=== PATIENT | male | born 1940 | race Caucasian/White ===

== ENCOUNTER 2020-11-09 10:12 | Outpatient (REF) | payer MEDICARE, SELFPAY ==
--- NOTE | ~2020-11-09 | XR_ITS ---
EXAMINATION: XR TIBIA AND FIBULA, RIGHT CLINICAL INFORMATION: Right leg injury COMPARISON: None TECHNIQUE: AP and lateral views of the right tibia and fibula were obtained. FINDINGS: There are old healed fractures of the midshaft of the tibia and fibula. No acute fracture is seen. There are degenerative changes at the patellofemoral joint and ankle joint. There are calcaneal spurs. XR/XR tibia fibula RT 2V IMPRESSION: Old healed fractures of the tibia and fibula. No acute fracture seen.
== END 2020-11-09 10:13 | disposition home or self-care (01) ==
LOC: HO.XRAY 10:12
PROVIDERS: PCP Internal Medicine; Visit Provider Internal Medicine
DX: S89.91XA Unspecified injury of right lower leg, initial encounter (principal)
CPT/HCPCS: 73590

== ENCOUNTER 2021-03-02 12:15 | Outpatient (REF) | payer MEDICARE, SELFPAY ==
[2021-03-02 14:06] LABS: MANUAL DIFF FLAG NO
[2021-03-02 14:17] LABS: Basophils Absolute Auto 0.1 X10*3/uL (0.0-0.2); Basophils Percent Auto 0.7 % (0-2); Eosinophils Absolute Auto 0.2 X10*3/uL (0.0-0.4); Eosinophils Percent Auto 3.1 % (0-4); Hematocrit 40.4 % (42.0-52.0); Hemoglobin 12.9 g/dl (14.0-18.0); Imm Gran Abs Auto 0.03 X10*3/uL (0.00-0.03); Imm Gran Pct Auto 0.4 % (0.0-0.4); Lymphocytes Absolute Auto 1.3 X10*3/uL (1.2-4.9); Lymphocytes Percent Auto 18.1 % (20-40); Mean Corpuscular HGB Conc 31.9 g/dl (31.0-36.0); Mean Corpuscular Hemoglobin 29.9 pg (27.0-33.0); Mean Corpuscular Volume 93.5 fL (80.0-98.0); Mean Platelet Volume 11.5 fL (9.4-12.4); Monocytes Absolute Auto 0.8 X10*3/uL (0.1-1.2); Monocytes Percent Auto 11.5 % (2-11); Neutrophils Absolute Auto 4.7 x10*3/uL (2.0-8.3); Neutrophils Percent Auto 66.2 % (45-73); Platelet Count 251 X10*3/uL (160-400); Red Blood Count 4.32 X10*6/uL (4.60-5.80); Red Cell Distribution Width 12.6 % (11.0-16.0)
[2021-03-02 14:35] LABS: Estimated Average Glucose 146 mg/dL; Hemoglobin A1c % 6.7 %
[2021-03-02 14:38] LABS: Creatinine Urine 140.77 mg/dL; Microalbum/Creatinine Ratio Ur 211.6 ug/mg cr
[2021-03-02 14:46] LABS: Anion Gap 15 (12-20); Blood Urea Nitrogen 25 mg/dL (9-16); Calcium 9.5 mg/dL (8.4-10.2); Carbon Dioxide 24 mmol/L (22-29); Chloride 105 mmol/L (96-108); Estimated Glomerular Filt Rate > 60; Glucose Random 110 mg/dL (60-115); Potassium 4.6 mmol/L (3.3-5.1); Sodium 139 mmol/L (135-145)
== END 2021-03-02 12:16 | disposition home or self-care (01) ==
LOC: HO.10HDL 12:15
PROVIDERS: Visit Provider Internal Medicine
DX: J44.9 Chronic obstructive pulmonary disease, unspecified (principal); I12.9 Hypertensive chronic kidney disease with stage 1 through stage 4 chronic kidney disease, or unspecified chronic kidney disease; N18.9 Chronic kidney disease, unspecified; E11.22 Type 2 diabetes mellitus with diabetic chronic kidney disease
CPT/HCPCS: 36415; 80048; 82043; 83036; 85025

== ENCOUNTER 2021-09-28 08:50 | Outpatient (REF) | payer MEDICARE, SELFPAY ==
[2021-09-28 09:07] LABS: MANUAL DIFF FLAG NO
[2021-09-28 09:23] LABS: Basophils Absolute Auto 0.1 X10*3/uL (0.0-0.2); Basophils Percent Auto 0.7 % (0-2); Eosinophils Absolute Auto 0.5 X10*3/uL (0.0-0.4); Eosinophils Percent Auto 6.4 % (0-4); Hematocrit 41.3 % (42.0-52.0); Hemoglobin 13.5 g/dl (14.0-18.0); Imm Gran Abs Auto 0.02 X10*3/uL (0.00-0.03); Imm Gran Pct Auto 0.3 % (0.0-0.4); Lymphocytes Absolute Auto 1.3 X10*3/uL (1.2-4.9); Lymphocytes Percent Auto 17.2 % (20-40); Mean Corpuscular HGB Conc 32.7 g/dl (31.0-36.0); Mean Corpuscular Volume 94.7 fL (80.0-98.0); Mean Platelet Volume 10.8 fL (9.4-12.4); Monocytes Absolute Auto 0.8 X10*3/uL (0.1-1.2); Monocytes Percent Auto 10.6 % (2-11); Neutrophils Absolute Auto 4.9 x10*3/uL (2.0-8.3); Neutrophils Percent Auto 64.8 % (45-73); Platelet Count 248 X10*3/uL (160-400); Red Blood Count 4.36 X10*6/uL (4.60-5.80); Red Cell Distribution Width 12.5 % (11.0-16.0); White Blood Count 7.5 X10*3/uL (4.8-10.8)
[2021-09-28 09:51] LABS: Alanine Aminotransferase 13 U/L (0-40); Albumin Level 4.1 g/dL (3.5-5.0); Alkaline Phosphatase 60 U/L (39-117); Anion Gap 11 (12-20); Aspartate Amino Transferase 13 U/L (5-37); Bilirubin Total 0.6 mg/dL (0.0-1.0); Blood Urea Nitrogen 19 mg/dL (9-16); Calcium 9.5 mg/dL (8.4-10.2); Carbon Dioxide 28 mmol/L (22-29); Chloride 107 mmol/L (96-108); Cholesterol 142 mg/dL; Estimated Glomerular Filt Rate > 60; Glucose Fasting 160 mg/dL (60-99); HDL Cholesterol 59 mg/dL; LDL Cholesterol Calculated 75 mg/dl; Potassium 4.9 mmol/L (3.3-5.1); Sodium 141 mmol/L (135-145); Total Protein 6.7 g/dL (6.5-8.0); Triglycerides 44 mg/dL
[2021-09-28 09:56] LABS: Estimated Average Glucose 146 mg/dL; Hemoglobin A1C 176.9785 umol/L; Hemoglobin A1c % 6.7 %
[2021-09-28 10:12] LABS: Prostate Specific Antigen 0.92 ng/mL (<0.05-4.0)
[2021-09-28 10:39] LABS: Creatinine Urine 108.45 mg/dL; Microalbum/Creatinine Ratio Ur 340.2 ug/mg cr
== END 2021-09-28 08:51 | disposition home or self-care (01) ==
LOC: HO.LAB 08:50
PROVIDERS: PCP Internal Medicine; Visit Provider Internal Medicine
DX: Z12.5 Encounter for screening for malignant neoplasm of prostate (principal); I10 Essential (primary) hypertension; E78.00 Pure hypercholesterolemia, unspecified; E11.9 Type 2 diabetes mellitus without complications
CPT/HCPCS: 36415; 80053; 80061; 82043; 83036; 84153; 85025

== ENCOUNTER 2022-01-24 09:47 | Outpatient (REF) | payer MEDICARE, SELFPAY ==
[2022-01-24 10:39] LABS: MANUAL DIFF FLAG NO
[2022-01-24 10:43] LABS: Basophils Absolute Auto 0.1 X10*3/uL (0.0-0.2); Basophils Percent Auto 0.7 % (0-2); Eosinophils Absolute Auto 0.3 X10*3/uL (0.0-0.4); Eosinophils Percent Auto 3.7 % (0-4); Hematocrit 41.3 % (42.0-52.0); Imm Gran Abs Auto 0.02 X10*3/uL (0.00-0.03); Imm Gran Pct Auto 0.3 % (0.0-0.4); Lymphocytes Percent Auto 14.8 % (20-40); Mean Corpuscular HGB Conc 31.5 g/dl (31.0-36.0); Mean Corpuscular Hemoglobin 29.7 pg (27.0-33.0); Mean Corpuscular Volume 94.5 fL (80.0-98.0); Monocytes Absolute Auto 0.8 X10*3/uL (0.1-1.2); Monocytes Percent Auto 12.2 % (2-11); Neutrophils Absolute Auto 4.7 x10*3/uL (2.0-8.3); Neutrophils Percent Auto 68.3 % (45-73); Platelet Count 236 X10*3/uL (160-400); Red Blood Count 4.37 X10*6/uL (4.60-5.80); Red Cell Distribution Width 12.6 % (11.0-16.0); White Blood Count 6.8 X10*3/uL (4.8-10.8)
[2022-01-24 10:57] LABS: Estimated Average Glucose 146 mg/dL; Hemoglobin A1c % 6.7 %
[2022-01-24 11:14] LABS: Anion Gap 16 (12-20); Blood Urea Nitrogen 22 mg/dL (9-16); Calcium 9.5 mg/dL (8.4-10.2); Carbon Dioxide 26 mmol/L (22-29); Chloride 105 mmol/L (96-108); Estimated Glomerular Filt Rate 52; Glucose Random 235 mg/dL (60-115); Potassium 4.5 mmol/L (3.3-5.1); Sodium 142 mmol/L (135-145)
== END 2022-01-24 09:48 | disposition home or self-care (01) ==
LOC: HO.10HDL 09:47
PROVIDERS: Visit Provider Internal Medicine
DX: E11.9 Type 2 diabetes mellitus without complications (principal); I10 Essential (primary) hypertension; D64.9 Anemia, unspecified
CPT/HCPCS: 36415; 80048; 83036; 85025

== ENCOUNTER 2022-04-14 08:56 | Outpatient (REF) | payer MEDICARE, SELFPAY ==
--- NOTE | ~2022-04-14 | XR_ITS ---
EXAMINATION: XR TIBIA AND FIBULA, RIGHT CLINICAL INFORMATION: R52 - Pain, unspecified COMPARISON: Right lower leg radiograph 11/09/2020. TECHNIQUE: AP and lateral views of the right tibia and fibula were obtained. FINDINGS: There is no acute fracture or dislocation or destructive process. Again, there are old healed fractures mid tibia shaft and mid fibula shaft with mild anterior bowing at both prior fracture sites. There is some benign oval heterotopic ossification in the intraosseous region just above the fractures again noted. Hoffa's fat pad appears normal. There is spurring at the quadriceps insertion patella. There are atherosclerotic calcifications vasculature. No periostitis or gas tracking in soft tissues. XR/XR tibia fibula RT 2V IMPRESSION: 1. No acute fracture or dislocation. 2. Old healed fractures mid tibia and fibula. 3. Spurring at quadriceps insertion patella.
== END 2022-04-14 08:57 | disposition home or self-care (01) ==
LOC: HO.HOSX 08:56
PROVIDERS: Visit Provider Orthopaedic Surgery
DX: M79.604 Pain in right leg (principal); M54.10 Radiculopathy, site unspecified; Z96.641 Presence of right artificial hip joint
CPT/HCPCS: 72170; 73590; 99202

== ENCOUNTER 2022-05-02 10:05 | Outpatient (REF) | payer MEDICARE, SELFPAY ==
--- NOTE | ~2022-05-02 | MR_ITS ---
EXAMINATION: MR LUMBAR SPINE WITHOUT CONTRAST CLINICAL INFORMATION: Right leg radiculopathy. COMPARISON: CT scan of the abdomen and pelvis 11/28/2014. Remote plain films of the lumbar spine 08/27/2007. TECHNIQUE: MRI of the lumbar spine was obtained using routine sequences without contrast. FINDINGS: VERTEBRAL BODIES AND PARASPINAL STRUCTURES: There is a mild levoscoliosis. There is a mild retrolisthesis of L5 on S1. There is multilevel narrowing of intervertebral disc height with loss of signal which is most severe at L2-L3 and L3-L4. There is chronic loss of vertebral body height of L1 anteriorly, demonstrated on prior imaging. There are multilevel degenerative endplate contour changes with mild edematous signal toward the left at L4-L5. There are Schmorl's nodes at multiple levels. Vertebral body heights are maintained, and no fractures are demonstrated. Overall, marrow signal is homogenous. There are bilateral renal cysts. The infrarenal abdominal aorta is slightly ectatic. The visualized pelvic structures are unremarkable. There is susceptibility artifact from the right total hip arthroplasty. CONUS MEDULLARIS AND CAUDA EQUINA: Normal, terminating at the level of L1. The lower thoracic spinal cord appears normal. The cauda equina nerve roots and filum terminale appear normal.. SPINAL LEVELS: T12-L1: There is mild bilateral facet arthropathy. There is a posterior disc protrusion but there is no central stenosis and the neural foramina are patent. L1-L2: There is moderate bilateral facet arthropathy with ligamenta flava hypertrophy and facet joint effusions. There is a posterior disc protrusion extending into the inferior neural foramina bilaterally without exiting nerve root impingement. There is mild narrowing of the bilateral subarticular recesses and there is mild central stenosis. L2-L3: There is moderate bilateral facet arthropathy with ligamenta flava hypertrophy. There is a posterior disc protrusion extending into the neural foramina bilaterally, and extending far laterally on the right with impingement on the extraforaminal right L2 nerve root. There is narrowing of the bilateral subarticular recesses, and there is moderate central stenosis. L3-L4: There is moderate bilateral facet arthropathy with ligamenta flava hypertrophy. There is a broad-based posterior disc protrusion with a small extruded component extending into the right greater than left subarticular recesses with compression of the thecal sac and impingement on the traversing L4 nerve roots bilaterally. There is moderate to severe central stenosis. There is a right foraminal disc protrusion impinging on the exiting right L3 nerve root. L4-L5: There is severe bilateral facet arthropathy with ligamenta flava hypertrophy and small facet joint effusions. There is a posterior disc protrusion extending into the neural foramina bilaterally and far laterally on the left with impingement on the extraforaminal left and exiting right L4 nerve roots. There is narrowing of the subarticular recesses, more severe on the left and there is impingement on the traversing L5 nerve roots. There is moderate central stenosis. L5-S1: There is moderate bilateral facet arthropathy with ligamenta flava hypertrophy. There is a posterior disc protrusion with an extruded component extending into the left subarticular recess with mass effect on the traversing left S1 nerve root. The protrusion extends into the neural foramina bilaterally, more extensive on the left with impingement on the exiting left L5 nerve root. There is moderate central stenosis. MR/MR lumbar spine wo con IMPRESSION: 1. At L2-L3 there is facet arthropathy and there is a posterior disc protrusion extending far laterally on the right with impingement on the extraforaminal right L2 nerve root. There is moderate central stenosis. 2. At L3-L4 there is facet arthropathy and there is a posterior disc protrusion with a small extruded component extending into the subarticular recesses. There is impingement on the traversing L4 nerve roots bilaterally and there is moderate to severe central stenosis. There is a right foraminal disc protrusion impinging on the exiting right L3 nerve root. 3. At L4-L5 there is severe facet arthropathy. There is a bilateral foraminal disc protrusion extending far laterally on the left with impingement on the extraforaminal left and exiting right L4 nerve roots. There is narrowing of the subarticular recesses with impingement on the traversing L5 nerve roots. There is moderate central stenosis. 4. At L5-S1 there is facet arthropathy and there is a posterior disc protrusion with an extruded component extending into the left subarticular recess with mass effect on the traversing left S1 nerve root. There is also impingement on the foraminal left L5 nerve root. There is moderate central stenosis.
== END 2022-05-02 10:06 | disposition home or self-care (01) ==
LOC: HO.MRI 10:05
PROVIDERS: PCP Internal Medicine; Visit Provider Orthopaedic Surgery
DX: M54.10 Radiculopathy, site unspecified (principal); M79.604 Pain in right leg
CPT/HCPCS: 72148

== ENCOUNTER 2022-05-23 09:23 | Outpatient (REF) | payer MEDICARE, SELFPAY ==
[2022-05-23 10:28] LABS: MANUAL DIFF FLAG NO
[2022-05-23 10:44] LABS: Basophils Absolute Auto 0.1 X10*3/uL (0.0-0.2); Basophils Percent Auto 0.9 % (0-2); Eosinophils Absolute Auto 0.3 X10*3/uL (0.0-0.4); Eosinophils Percent Auto 5.1 % (0-4); Hematocrit 41.1 % (42.0-52.0); Hemoglobin 13.1 g/dl (14.0-18.0); Imm Gran Abs Auto 0.02 X10*3/uL (0.00-0.03); Imm Gran Pct Auto 0.3 % (0.0-0.4); Lymphocytes Absolute Auto 1.2 X10*3/uL (1.2-4.9); Lymphocytes Percent Auto 18.2 % (20-40); Mean Corpuscular HGB Conc 31.9 g/dl (31.0-36.0); Mean Corpuscular Volume 94.1 fL (80.0-98.0); Mean Platelet Volume 11.4 fL (9.4-12.4); Monocytes Absolute Auto 0.7 X10*3/uL (0.1-1.2); Monocytes Percent Auto 10.3 % (2-11); Neutrophils Absolute Auto 4.3 x10*3/uL (2.0-8.3); Neutrophils Percent Auto 65.2 % (45-73); Platelet Count 252 X10*3/uL (160-400); Red Blood Count 4.37 X10*6/uL (4.60-5.80); Red Cell Distribution Width 12.7 % (11.0-16.0); White Blood Count 6.6 X10*3/uL (4.8-10.8)
[2022-05-23 10:54] LABS: Estimated Average Glucose 157 mg/dL; Hemoglobin A1c % 7.1 %
[2022-05-23 11:10] LABS: Creatinine Urine 148.23 mg/dL; Microalbum/Creatinine Ratio Ur 306.9 ug/mg cr
[2022-05-23 11:14] LABS: Alanine Aminotransferase 12 U/L (0-40); Alkaline Phosphatase 65 U/L (39-117); Anion Gap 14 (12-20); Aspartate Amino Transferase 13 U/L (5-37); Bilirubin Total 0.5 mg/dL (0.0-1.0); Blood Urea Nitrogen 25 mg/dL (9-16); Calcium 9.4 mg/dL (8.4-10.2); Carbon Dioxide 26 mmol/L (22-29); Chloride 107 mmol/L (96-108); Estimated Glomerular Filt Rate 55; Glucose Random 292 mg/dL (60-115); Potassium 4.5 mmol/L (3.3-5.1); Sodium 142 mmol/L (135-145); Total Protein 6.4 g/dL (6.5-8.0)
== END 2022-05-23 09:24 | disposition home or self-care (01) ==
LOC: HO.10HDL 09:23
PROVIDERS: Visit Provider Internal Medicine
DX: I12.9 Hypertensive chronic kidney disease with stage 1 through stage 4 chronic kidney disease, or unspecified chronic kidney disease (principal); E11.22 Type 2 diabetes mellitus with diabetic chronic kidney disease; N18.9 Chronic kidney disease, unspecified
CPT/HCPCS: 36415; 80053; 82043; 83036; 85025

== ENCOUNTER 2022-10-20 14:47 | Outpatient (REF) | payer MEDICARE, SELFPAY ==
[2022-10-20 15:05] LABS: MANUAL DIFF FLAG NO
[2022-10-20 15:19] LABS: Basophils Absolute Auto 0.1 X10*3/uL (0.0-0.2); Basophils Percent Auto 0.8 % (0-2); Eosinophils Absolute Auto 0.2 X10*3/uL (0.0-0.4); Eosinophils Percent Auto 3.2 % (0-4); Hematocrit 41.9 % (42.0-52.0); Hemoglobin 13.4 g/dl (14.0-18.0); Imm Gran Abs Auto 0.02 X10*3/uL (0.00-0.03); Imm Gran Pct Auto 0.3 % (0.0-0.4); Lymphocytes Absolute Auto 1.5 X10*3/uL (1.2-4.9); Lymphocytes Percent Auto 20.6 % (20-40); Mean Corpuscular Volume 93.7 fL (80.0-98.0); Mean Platelet Volume 10.7 fL (9.4-12.4); Monocytes Absolute Auto 0.9 X10*3/uL (0.1-1.2); Monocytes Percent Auto 11.7 % (2-11); Neutrophils Absolute Auto 4.6 x10*3/uL (2.0-8.3); Neutrophils Percent Auto 63.4 % (45-73); Platelet Count 206 X10*3/uL (160-400); Red Blood Count 4.47 X10*6/uL (4.60-5.80); Red Cell Distribution Width 12.7 % (11.0-16.0); White Blood Count 7.3 X10*3/uL (4.8-10.8)
[2022-10-20 15:35] LABS: Estimated Average Glucose 146 mg/dL; Hemoglobin A1c % 6.7 %
[2022-10-20 15:47] LABS: Anion Gap 12 (12-20); Blood Urea Nitrogen 21 mg/dL (9-16); Calcium 10.1 mg/dL (8.4-10.2); Carbon Dioxide 26 mmol/L (22-29); Chloride 107 mmol/L (96-108); Estimated Glomerular Filt Rate > 60; Glucose Random 116 mg/dL (60-115); Potassium 4.5 mmol/L (3.3-5.1); Sodium 140 mmol/L (135-145)
== END 2022-10-20 14:48 | disposition home or self-care (01) ==
LOC: HO.LAB 14:47
PROVIDERS: PCP Internal Medicine; Visit Provider Internal Medicine
DX: J44.9 Chronic obstructive pulmonary disease, unspecified (principal); I12.9 Hypertensive chronic kidney disease with stage 1 through stage 4 chronic kidney disease, or unspecified chronic kidney disease; E11.22 Type 2 diabetes mellitus with diabetic chronic kidney disease; N18.9 Chronic kidney disease, unspecified
CPT/HCPCS: 36415; 80048; 83036; 85025

== ENCOUNTER 2023-01-24 10:00 | Outpatient (REF) | payer MEDICARE, SELFPAY ==
[2023-01-24 11:13] LABS: MANUAL DIFF FLAG NO
[2023-01-24 11:18] LABS: Basophils Percent Auto 0.6 % (0-2); Eosinophils Absolute Auto 0.3 X10*3/uL (0.0-0.4); Eosinophils Percent Auto 4.4 % (0-4); Hematocrit 38.5 % (42.0-52.0); Hemoglobin 12.5 g/dl (14.0-18.0); Imm Gran Abs Auto 0.03 X10*3/uL (0.00-0.03); Imm Gran Pct Auto 0.5 % (0.0-0.4); Lymphocytes Absolute Auto 1.3 X10*3/uL (1.2-4.9); Lymphocytes Percent Auto 20.9 % (20-40); Mean Corpuscular HGB Conc 32.5 g/dl (31.0-36.0); Mean Corpuscular Volume 95.5 fL (80.0-98.0); Mean Platelet Volume 11.3 fL (9.4-12.4); Monocytes Absolute Auto 0.9 X10*3/uL (0.1-1.2); Monocytes Percent Auto 13.6 % (2-11); Neutrophils Absolute Auto 3.9 x10*3/uL (2.0-8.3); Platelet Count 227 X10*3/uL (160-400); Red Blood Count 4.03 X10*6/uL (4.60-5.80); Red Cell Distribution Width 12.5 % (11.0-16.0); White Blood Count 6.4 X10*3/uL (4.8-10.8)
[2023-01-24 11:29] LABS: Estimated Average Glucose 140 mg/dL; Hemoglobin A1c % 6.5 % (<6.0)
[2023-01-24 11:38] LABS: Creatinine Urine 129.93 mg/dL; Microalbum/Creatinine Ratio Ur 37.7 ug/mg cr (<30)
[2023-01-24 11:44] LABS: Alanine Aminotransferase 8 U/L (0-40); Albumin Level 4.1 g/dL (3.5-5.0); Alkaline Phosphatase 49 U/L (39-117); Anion Gap 12 (12-20); Aspartate Amino Transferase 13 U/L (5-37); Bilirubin Total 0.8 mg/dL (0.0-1.0); Blood Urea Nitrogen 30 mg/dL (9-16); Calcium 9.4 mg/dL (8.4-10.2); Carbon Dioxide 26 mmol/L (22-29); Chloride 106 mmol/L (96-108); Cholesterol 134 mg/dL (<200); Estimated Glomerular Filt Rate 51; Glucose Fasting 164 mg/dL (60-99); HDL Cholesterol 58 mg/dL (>40); Iron 131 mcg/dL (45-160); LDL Cholesterol Calculated 66 mg/dL (<100); Percent Iron Saturation 45 % (15-50); Sodium 139 mmol/L (135-145); Total Iron Binding Capacity 288 mcg/dL (228-428); Total Protein 6.8 g/dL (6.5-8.0); Triglycerides 50 mg/dL (<150); Unsaturated Iron Binding 157 ug/dL
[2023-01-24 12:06] LABS: Prostate Specific Antigen Scr 0.93 ng/mL (<0.05-4.0)
== END 2023-01-24 10:01 | disposition home or self-care (01) ==
LOC: HO.10HDL 10:00
PROVIDERS: Visit Provider Internal Medicine
DX: E11.9 Type 2 diabetes mellitus without complications (principal); I10 Essential (primary) hypertension; N40.0 Benign prostatic hyperplasia without lower urinary tract symptoms; E78.00 Pure hypercholesterolemia, unspecified; Z12.5 Encounter for screening for malignant neoplasm of prostate
CPT/HCPCS: 36415; 80053; 80061; 82043; 82570; 83036; 83540; 84153; 85025

== ENCOUNTER 2023-07-31 06:02 | Outpatient (REF) | payer MEDICARE, SELFPAY ==
[2023-07-31 06:21] LABS: MANUAL DIFF FLAG NO
[2023-07-31 07:28] LABS: Basophils Percent Auto 0.5 % (0-2); Eosinophils Absolute Auto 0.4 X10*3/uL (0.0-0.4); Eosinophils Percent Auto 5.5 % (0-4); Hematocrit 41.1 % (42.0-52.0); Hemoglobin 13.2 g/dl (14.0-18.0); Imm Gran Abs Auto 0.02 X10*3/uL (0.00-0.03); Imm Gran Pct Auto 0.3 % (0.0-0.4); Lymphocytes Absolute Auto 1.8 X10*3/uL (1.2-4.9); Lymphocytes Percent Auto 23.7 % (20-40); Mean Corpuscular HGB Conc 32.1 g/dl (31.0-36.0); Mean Corpuscular Hemoglobin 30.8 pg (27.0-33.0); Mean Corpuscular Volume 95.8 fL (80.0-98.0); Monocytes Absolute Auto 1.1 X10*3/uL (0.1-1.2); Monocytes Percent Auto 13.8 % (2-11); Neutrophils Absolute Auto 4.3 x10*3/uL (2.0-8.3); Neutrophils Percent Auto 56.2 % (45-73); Platelet Count 228 X10*3/uL (160-400); Red Blood Count 4.29 X10*6/uL (4.60-5.80); Red Cell Distribution Width 12.7 % (11.0-16.0); White Blood Count 7.6 X10*3/uL (4.8-10.8)
[2023-07-31 07:43] LABS: Estimated Average Glucose 146 mg/dL; Hemoglobin A1c % 6.7 % (<6.0)
[2023-07-31 07:49] LABS: Creatinine Urine 102.57 mg/dL; Microalbum/Creatinine Ratio Ur 179.3 ug/mg cr (<30)
[2023-07-31 08:02] LABS: Alanine Aminotransferase 14 U/L (0-40); Alkaline Phosphatase 55 U/L (39-117); Anion Gap 13 (12-20); Aspartate Amino Transferase 15 U/L (5-37); Bilirubin Total 0.5 mg/dL (0.0-1.0); Blood Urea Nitrogen 26 mg/dL (9-16); Calcium 9.5 mg/dL (8.4-10.2); Carbon Dioxide 26 mmol/L (22-29); Chloride 107 mmol/L (96-108); Estimated Glomerular Filt Rate 45; Glucose Random 146 mg/dL (60-115); Potassium 4.9 mmol/L (3.3-5.1); Sodium 141 mmol/L (135-145); Total Protein 7.1 g/dL (6.5-8.0)
== END 2023-07-31 06:03 | disposition home or self-care (01) ==
LOC: HO.LAB 06:02
PROVIDERS: PCP Internal Medicine; Visit Provider Internal Medicine
DX: E11.22 Type 2 diabetes mellitus with diabetic chronic kidney disease (principal); I12.9 Hypertensive chronic kidney disease with stage 1 through stage 4 chronic kidney disease, or unspecified chronic kidney disease; N18.9 Chronic kidney disease, unspecified
CPT/HCPCS: 36415; 80053; 82043; 82570; 83036; 85025

== ENCOUNTER → 2023-09-04 07:45 | Outpatient (REF) | payer MEDICARE, SELFPAY ==
--- NOTE | 2023-09-04 07:48 | CA_ITS ---
Transthoracic Echocardiogram Patient (Last, First, Middle): Parent, Doris Chapman Gender: Male Date of : 1940 Age: 82 Procedure Date: 09/04/2023 Procedure Type: Transthoracic Echocardiogram Location: OP Height: 182.88 cm Weight: 83.92 kg BSA: 2.06 m2 Heart Rate: 66 bpm BP: 162 / 62 mmHg Traffic Rate Clerk: SB Referring MD: Campbell Montalvo MD Software Licensing Specialist: Odilon Garza MD Symptoms: I49.3 PVC COPD Study Quality: Adequate ECG Rhythm: Frequent ventricular premature beats Conclusions: - 1. Low normal LV ejection fraction 50-55% 2. Mildly dilated left atrium 3. Normal cardiac valvular Dopplers 4. No gross pericardial effusion Findings Left Ventricle Normal left ventricular cavity size. There is normal left ventricular wall thickness. The left ventricular systolic function is low normal. The visually estimated ejection fraction is between 50-55%. Spectral Doppler is indicative of an impaired relaxation filling pattern. E/E prime ratio is between 8 and 15 consistent with indeterminate filling pressures. There is mild septal asymmetric hypertrophy. Right Ventricle Normal right ventricular cavity size and systolic function. Atria The left atrium is mildly dilated. Interatrial shunt cannot be excluded. The right atrium is likely dilated. Aortic Valve There is mild calcification of the aortic valve. There is no aortic valve stenosis. There is no aortic valve regurgitation. Mitral Valve There is mild anterior and posterior mitral leaflet thickening. There is trace mitral valve regurgitation. There is no mitral valve stenosis. Pulmonic Valve The pulmonic valve was not well visualized. Tricuspid Valve Likely normal tricuspid valve structure and function. Tricuspid regurgitation envelope is inadequate for calculation of right ventricular systolic pressure. Normal right atrial pressure. Great Vessels The pulmonary artery was not well visualized. There is mild dilatation of the ascending aorta measuring 3.80 cm. Venous The inferior vena cava is normal in size and collapses greater than 50% with inspiration. Pericardium/Pleural There is no evidence of pericardial effusion. Prior Study Comparison No prior study available for comparison. Measurements 2D Linear Measurements IVSd: 1.38 0.6-0.9/0.6-1.0 cm LVIDd: 5.47 3.9-5.3/4.2-5.9 cm LVIDd Index: 2.66 2.4-3.2/2.2-3.1 cm/m2 LVIDs: 3.12 2.0-3.6 cm LVPWd: 1.01 0.7-1.1 cm LA Diam: 4.60 2.7-3.8/3.0-4.0 cm LAIDs Index: 2.23 1.5-2.3 cm/m2 LV Mass: 334.80 67-162/88-224 g LV Mass Index: 162.52 43-95/49-115 g/m2 LVOT Diam: 2.30 3.0+(-)1.3 cm 2D Systolic Function EF 4C: 50.40 >55% EF 2C: 46.10 >55% Mitral Valve MV Pk E: 0.82 MV PK A: 0.69 MV Decel Time: 348.00 E/A: 1.20 E'Lateral: 8.67 E'Medial: 3.68 E/E' Med: 22.40 E/E' Lat: 9.50 PHT: 102.00 MVA PHT: 2.16 Decel Norman: 2.36 Aortic Valve AoV Pk Benigno: 1.53 AoV Mn Benigno: 1.14 AoV VTI: 0.41 AoV Pk Grad: 9.00 Aov Mn Grad: 6.00 DARRYN Cont.VTI: 2.05 LVOT LVOT Pk Benigno: 0.80 LVOT Mn Benigno: 0.52 LVOT VTI: 0.20 LVOT Pk Grad: 3.00 LVOT Mn Grad: 1.00 LVOT Diam: 2.30 LVOT Area: 4.15 Diastolic Function MV Pk E: 0.82 MV Pk A: 0.69 E/A: 1.20 E'Medial: 3.68 E/E' Med: 22.40 E' Laterial: 8.67 E/E' Lat: 9.50 Right Ventricle TAPSE (mm): 31.50 TVS' Benigno: 19.00 Tricuspid Valve RA Press: 8.00 Great Vessels Aorta Sinus of Valsalva: 4.10 2.0-3.5 cm Ao Asc: 3.80 2.1-3.4 cm Pulmonary Valve PV Pk Benigno: 0.88 Peak PV Grad: 3.00 Updated in Other Vendor System with Status of Final Odilon Garza MD electronically signed on 09/04/2023 1:43:24 PM with status of Final
== END ==
LOC: HO.CARD 07:45
PROVIDERS: PCP Internal Medicine; Visit Provider Internal Medicine
DX: I49.3 Ventricular premature depolarization (principal)
CPT/HCPCS: 93306

== ENCOUNTER → 2023-09-04 07:48 | Outpatient (BNV) | payer MEDICARE, SELFPAY | PROVIDERS: PCP Internal Medicine; Visit Provider Internal Medicine Cardiovascular Disease | DX: I35.8 Other nonrheumatic aortic valve disorders (principal); I42.2 Other hypertrophic cardiomyopathy | CPT/HCPCS: 93306 ==

== ENCOUNTER 2023-12-07 11:05 | Outpatient (REF) | payer MEDICARE, SELFPAY ==
[2023-12-07 11:56] LABS: MANUAL DIFF FLAG NO
[2023-12-07 12:00] LABS: Basophils Absolute Auto 0.1 X10*3/uL (0.0-0.2); Basophils Percent Auto 0.8 % (0-2); Eosinophils Absolute Auto 0.2 X10*3/uL (0.0-0.4); Eosinophils Percent Auto 2.3 % (0-4); Hematocrit 37.1 % (42.0-52.0); Hemoglobin 12.3 g/dl (14.0-18.0); Imm Gran Abs Auto 0.01 X10*3/uL (0.00-0.03); Imm Gran Pct Auto 0.2 % (0.0-0.4); Lymphocytes Absolute Auto 1.2 X10*3/uL (1.2-4.9); Lymphocytes Percent Auto 18.4 % (20-40); Mean Corpuscular HGB Conc 33.2 g/dl (31.0-36.0); Mean Corpuscular Hemoglobin 31.5 pg (27.0-33.0); Mean Corpuscular Volume 95.1 fL (80.0-98.0); Mean Platelet Volume 11.1 fL (9.4-12.4); Monocytes Absolute Auto 0.8 X10*3/uL (0.1-1.2); Neutrophils Absolute Auto 4.3 x10*3/uL (2.0-8.3); Neutrophils Percent Auto 66.3 % (45-73); Platelet Count 214 X10*3/uL (160-400); Red Cell Distribution Width 12.8 % (11.0-16.0); White Blood Count 6.4 X10*3/uL (4.8-10.8)
[2023-12-07 12:07] LABS: Estimated Average Glucose 212 mg/dL
[2023-12-07 12:16] LABS: Alanine Aminotransferase 12 U/L (0-40); Albumin Level 3.8 g/dL (3.5-5.0); Alkaline Phosphatase 58 U/L (39-117); Anion Gap 14 (12-20); Aspartate Amino Transferase 14 U/L (5-37); Bilirubin Total 0.5 mg/dL (0.0-1.0); Blood Urea Nitrogen 24 mg/dL (9-16); Calcium 9.1 mg/dL (8.4-10.2); Carbon Dioxide 22 mmol/L (22-29); Chloride 105 mmol/L (96-108); Estimated Glomerular Filt Rate 43; Glucose Random 209 mg/dL (60-115); Potassium 4.9 mmol/L (3.3-5.1); Sodium 136 mmol/L (135-145); Total Protein 6.5 g/dL (6.5-8.0)
== END 2023-12-07 11:06 | disposition home or self-care (01) ==
LOC: HO.10HDL 11:05
PROVIDERS: Visit Provider Internal Medicine
DX: E11.9 Type 2 diabetes mellitus without complications (principal); I10 Essential (primary) hypertension; J44.9 Chronic obstructive pulmonary disease, unspecified
CPT/HCPCS: 36415; 80053; 83036; 85025

== ENCOUNTER 2024-03-20 06:51 | Outpatient (REF) | payer MEDICARE, SELFPAY ==
[2024-03-20 07:17] LABS: MANUAL DIFF FLAG NO
[2024-03-20 07:27] LABS: Basophils Percent Auto 0.6 % (0-2); Eosinophils Absolute Auto 0.3 X10*3/uL (0.0-0.4); Eosinophils Percent Auto 4.8 % (0-4); Hematocrit 40.6 % (42.0-52.0); Imm Gran Abs Auto 0.03 X10*3/uL (0.00-0.03); Imm Gran Pct Auto 0.4 % (0.0-0.4); Lymphocytes Absolute Auto 1.5 X10*3/uL (1.2-4.9); Lymphocytes Percent Auto 22.8 % (20-40); Mean Corpuscular Hemoglobin 30.7 pg (27.0-33.0); Mean Platelet Volume 11.5 fL (9.4-12.4); Monocytes Percent Auto 14.9 % (2-11); Neutrophils Absolute Auto 3.8 x10*3/uL (2.0-8.3); Neutrophils Percent Auto 56.5 % (45-73); Platelet Count 212 X10*3/uL (160-400); Red Blood Count 4.23 X10*6/uL (4.60-5.80); Red Cell Distribution Width 12.4 % (11.0-16.0); White Blood Count 6.7 X10*3/uL (4.8-10.8)
[2024-03-20 07:42] LABS: Estimated Average Glucose 183 mg/dL; Hemoglobin A1C 212.9019 umol/L; Total Hemoglobin (HGBA1C) 3334.5996 umol/L
[2024-03-20 08:03] LABS: Alanine Aminotransferase 18 U/L (0-40); Alkaline Phosphatase 64 U/L (39-117); Anion Gap 13 (12-20); Aspartate Amino Transferase 18 U/L (5-37); Bilirubin Total 0.5 mg/dL (0.0-1.0); Blood Urea Nitrogen 25 mg/dL (9-16); Calcium 9.4 mg/dL (8.4-10.2); Carbon Dioxide 26 mmol/L (22-29); Chloride 109 mmol/L (96-108); Cholesterol 143 mg/dL (<200); Estimated Glomerular Filt Rate 46; Glucose Fasting 198 mg/dL (60-99); HDL Cholesterol 61 mg/dL (>40); LDL Cholesterol Calculated 72 mg/dL (<100); Potassium 4.8 mmol/L (3.3-5.1); Sodium 143 mmol/L (135-145); Total Protein 6.7 g/dL (6.5-8.0); Triglycerides 50 mg/dL (<150)
[2024-03-20 08:03] LABS: Creatinine Urine 96.51 mg/dL; Microalbum/Creatinine Ratio Ur 249.7 ug/mg cr (<30)
== END 2024-03-20 06:52 | disposition home or self-care (01) ==
LOC: HO.LAB 06:51
PROVIDERS: PCP Internal Medicine; Visit Provider Internal Medicine
DX: E11.9 Type 2 diabetes mellitus without complications (principal); I10 Essential (primary) hypertension; D64.9 Anemia, unspecified; N18.9 Chronic kidney disease, unspecified; J44.9 Chronic obstructive pulmonary disease, unspecified; Z12.5 Encounter for screening for malignant neoplasm of prostate; E78.00 Pure hypercholesterolemia, unspecified
CPT/HCPCS: 36415; 80053; 80061; 82043; 82570; 83036; 84153; 85025

== ENCOUNTER 2024-08-20 18:00 | Emergency (ER) | payer MEDICARE, SELFPAY ==
--- NOTE | ~2024-08-20 | CT_ITS ---
CLINICAL HISTORY: trauma CT maxillofacial without contrast Comparison: Head CT from 08/20/2024 Findings: Acute comminuted bilateral nasal bone fractures with associated soft tissue swelling. Acute nondisplaced fracture of the floor of the right ovary extends to involve right infraorbital foramen. No acute intraconal stranding. Right-sided periorbital soft tissue swelling present. Additional scalp soft tissue swelling and hematoma over the imaged right frontal convexity. Bilateral maxillary sinus wall deformities and remodeling appear old/chronic. Fluid and mucosal thickening of the paranasal sinuses. Small bilateral mastoid effusions. Lucencies of the upper alveolar ridge imaged maxilla appear old. Small right maxillary osteophyte. Devitalized bone secondary to absence of the maxillary teeth. No displaced mandible fracture. Multiple sialoliths of the parotid glands, left worse than right. No associated ductal dilatation at this time. No dislocation of the imaged temporomandibular joints with mild osteoarthritis. Visualized intracranial contents are within normal limits. Mild reversal of the cervical lordosis. Mild imaged C4 height loss appears old in the [id number]-hvmz. IMPRESSION: 1. Acute nondisplaced fracture involving the floor of the right orbit. 2. Acute comminuted bilateral nasal bone fractures. 3. Soft tissue swelling, including over the right frontal convexity. This document has been electronically signed by: Karthikeyan Arcos MD on 08/20/2024 20:04:59
--- NOTE | ~2024-08-20 | CT_ITS ---
CLINICAL HISTORY: trauma CT head without contrast Comparison: CT of the face from same day. No prior brain imaging is available for review at this time. 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 No midline shift or hydrocephalus. No acute intracranial hemorrhage. Vascular calcifications noted in the, including imaged carotid siphons. Mild-moderate white matter lesions likely due to combination of small-vessel ischemic disease and wallerian degeneration. Right frontal convexity soft tissue swelling and scalp hematoma. Please refer to CT of the face for orbit fracture and nasal bone fractures. Scalp calcifications are multifocal. No acute frontal bone fracture. Fluid and mucosal thickening of imaged paranasal sinuses. Small bilateral mastoid effusions. IMPRESSION: 1. No acute intracranial hemorrhage. 2. 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 3. Please refer to CT of the face for acute facial bone fractures. This document has been electronically signed by: Karthikeyan Arcos MD on 08/20/2024 20:16:32
[2024-08-20 18:14] VITALS: BP 143/68; PULSE 67; RESP 20; TEMP 36.8; O2SAT 94; BMI 27.1
--- NOTE | 2024-08-20 18:17 | ED.GENADULT ---
HPI - General Adult General Chief complaint: Head Injury Stated complaint: head contusion, facial swelling bruising Time Seen by Provider: 08/20/24 19:30 Related Data Home Medications ?Medication ?Instructions ?Recorded ?Confirmed amlodipine 10 mg tablet 10 mg PO DAILY 04/14/22 cholecalciferol (vitamin D3) 10 10 mcg PO DAILY 04/14/22 mcg (400 unit) capsule glipizide 10 mg tablet 10 mg PO BID 04/14/22 metformin 1,000 mg tablet 1,000 mg PO BID 04/14/22 pravastatin 40 mg tablet 40 mg PO DAILY 04/14/22 vitamins A,C,D-edxz-dzinew 4,296 1 cap PO BID 04/14/22 mcg-226 mg-90 mg capsule (PreserVision AREDS) Previous Rx's ?Medication ?Instructions ?Recorded temazepam 15 mg capsule 15 mg PO BEDTIME PRN sleep #60 caps 07/19/24 Allergies Allergy/AdvReac Type Severity Reaction Status Date / Time No Known Allergies Allergy Verified 08/20/24 18:18 [No Known Allergies*] [facility] Past Medical History Medical History Diabetes Surgical History H/O Achilles tendon repair (~2015) History of total right hip replacement (~07/29/95) Social History Social History Advance Directives: No Advance Directives Information Provided: Yes Advance Directives on File: No Do you have a plan to hurt others: No Plan Physical Exam ED Vital Signs: Vital Signs - 24 hr 08/20/24 18:14 08/20/24 19:50 Temperature 98.3 F 97.8 F Pulse Rate 67 70 Respiratory Rate 20 16 Blood Pressure 143/68 H 146/68 H Pulse Oximetry 94 94 Oxygen Delivery Method Room Air Room Air BMI result Body Mass Index 27.1 Course Course Course Narrative: RME, this is a rapid medical exam performed by Aron Diane please refer to primary provider for complete H&P- 83-year-old male presents for evaluation of a head injury. The patient is here with his granddaughter. Yesterday he turned around and walked into a metal shelf. He suffered a laceration above his right eyebrow which she cleaned and closed with ?liquid Band-Aid. ? He had a small amount or bruising yesterday but today woke up with significant bruising around his right eye and some bruising around his left eye on the medial aspect. Pupils are equal, round and reactive to light and accommodation. Plan for CT scan of the brain and facial bones Medical Decision Making Lab Data Labs: Lab Results 08/20/24 Range/Units 19:55 POC Glucose 134 H (60-115) mg/dL Discharge Plan Discharge Clinical Impression: Closed head injury, Closed fracture nasal bone Patient Disposition: Home, Self-Care Instructions: Head Injury (ED) Prescriptions: No Action temazepam 15 mg capsule 15 mg PO BEDTIME PRN (Reason: sleep) Qty: 60 1RF metformin 1,000 mg tablet 1,000 mg PO BID glipizide 10 mg tablet 10 mg PO BID PreserVision AREDS [id number] capsule 1 cap PO BID cholecalciferol (vitamin D3) 10 mcg (400 unit) capsule 10 mcg PO DAILY amlodipine 10 mg tablet 10 mg PO DAILY pravastatin 40 mg tablet 40 mg PO DAILY Referrals: Campbell Montalvo MD [Primary Care Provider] - 08/22/24 Print Language: Macedonian
[2024-08-20 19:50] VITALS: BP 146/68; PULSE 70; RESP 16; TEMP 36.6; O2SAT 94
--- NOTE | 2024-08-20 19:55 | ED.HEATRA ---
HPI - Head Injury General Chief complaint: Head Injury Stated complaint: head contusion, facial swelling bruising Time Seen by Provider: 08/20/24 19:30 History of Present Illness HPI Narrative: Patient is an 83-year-old male presented today with having bruising inferior to bilateral eyes worse on the left side though. Patient from home. He ran into a shelving yesterday. There was no loss of consciousness. There was no vomiting. There is localized pain. Patient from home. There is no fever no chills. There is no difficulty ambulating. The incident was an accident. Patient not on any blood thinners. Related Data Home Medications ?Medication ?Instructions ?Recorded ?Confirmed amlodipine 10 mg tablet 10 mg PO DAILY 04/14/22 cholecalciferol (vitamin D3) 10 10 mcg PO DAILY 04/14/22 mcg (400 unit) capsule glipizide 10 mg tablet 10 mg PO BID 04/14/22 metformin 1,000 mg tablet 1,000 mg PO BID 04/14/22 pravastatin 40 mg tablet 40 mg PO DAILY 04/14/22 vitamins A,C,D-fxrm-scrrxt 4,296 1 cap PO BID 04/14/22 mcg-226 mg-90 mg capsule (PreserVision AREDS) Previous Rx's ?Medication ?Instructions ?Recorded temazepam 15 mg capsule 15 mg PO BEDTIME PRN sleep #60 caps 07/19/24 Allergies Allergy/AdvReac Type Severity Reaction Status Date / Time No Known Allergies Allergy Verified 08/20/24 18:18 [No Known Allergies*] Review of Systems Review of Systems: No fever no chills no chest pain or shortness breath no diaphoresis Yes all other systems are reviewed and are negative [facility] Past Medical History Attestation statement: The following information was validated with the patient. Medical History Diabetes Surgical History H/O Achilles tendon repair (~2015) History of total right hip replacement (~07/29/95) Social History Social History Advance Directives: No Advance Directives Information Provided: Yes Advance Directives on File: No Do you have a plan to hurt others: No Plan Physical Exam Vital Signs: Vital Signs: Last Vital Signs Temp 97.8 F 08/20/24 19:50 Pulse 70 08/20/24 19:50 Resp 16 08/20/24 19:50 BP 146/68 H 08/20/24 19:50 Pulse Ox 94 08/20/24 19:50 O2 Del Method Room Air 08/20/24 19:50 BMI result Body Mass Index 27.1 Appearance: Alert. Oriented X3. No acute distress. Eyes: Pupils equal, round and reactive to light. Extraocular muscle intact. There is ecchymosis inferior to the eye bilaterally. Worse on the left ENT: Pharynx normal. There is no midface tenderness there is no malocclusion. Neck: Normal inspection. Neck supple. No lymph nodes noted. No crepitus. Trachea is midline. There is no posterior C-spine tenderness. CVS: Normal heart rate and rhythm. Pulses normal. Normal S1 and S2 Respiratory: No respiratory distress. Breath sounds normal. No Wheezing. No rales Abdomen: Soft and nontender. No rigidity. No distention. good BS x4 Skin: Skin warm and dry. Normal skin color. Normal skin turgor. Extremities: No lower extremity edema. Neurovascular intact to all extremities. No Lacerations. No Rash Neuro: Oriented X 3. No motor deficit. No sensory deficit. Moving all extermities. No slurred speech Medical Decision Making Medical Decision Making MDM Narrative: Well-appearing not acute distress. No loss of consciousness. No nausea no vomiting. Patient had some abrasion to the head patient also had some contusion on the need bilateral eyes. In no distress. Neurologically intact. Patient's CT scan of the face was positive for nasal fracture. Extraocular muscle intact. Patient in no distress. Will discharge patient home. No nausea no vomiting. No focal weakness. No bleed on CT. Currently in stable condition with discharge from Differential Diagnosis Differential Diagnoses: The differential diagnosis associated with the presentation includes Intracranial bleed, facial fracture Admission/Observation Consideration of admission/observation: Escalation of care including admission/observation considered Lab Data MDM Lab Attestation statement: I reviewed the patient's lab results. Sugars in the 140s Labs: Lab Results 08/20/24 Range/Units 19:55 POC Glucose 134 H (60-115) mg/dL Independent Interpretation I performed an independent interpretation of an: CT Scan (CT head no bleed) Radiology Impression Discussion of test interpretation with radiology: I have reviewed the radiologist's reading. Radiologist Impression: CT of the face was positive for bilateral nasal fracture. Discharge Plan Discharge Clinical Impression: Closed head injury, Closed fracture nasal bone Patient Disposition: Home, Self-Care Instructions: Head Injury (ED) Prescriptions: No Action temazepam 15 mg capsule 15 mg PO BEDTIME PRN (Reason: sleep) Qty: 60 1RF metformin 1,000 mg tablet 1,000 mg PO BID glipizide 10 mg tablet 10 mg PO BID PreserVision AREDS [id number] szun-bd-tivv capsule 1 cap PO BID cholecalciferol (vitamin D3) 10 mcg (400 unit) capsule 10 mcg PO DAILY amlodipine 10 mg tablet 10 mg PO DAILY pravastatin 40 mg tablet 40 mg PO DAILY Referrals: Campbell Montalvo MD [Primary Care Provider] - 08/22/24 Print Language: [place]
[2024-08-20 19:59] LABS: Glucose, Whole Blood 134 mg/dL (60-115)
[2024-08-20 21:14] VITALS: BP 143/74; PULSE 71; RESP 16; TEMP 36.6; O2SAT 94
== END 2024-08-20 21:18 | disposition home or self-care (01) ==
PROVIDERS: Emergency Provider Emergency Medicine Emergency Medical Services; PCP Internal Medicine
DX: S09.90XA Unspecified injury of head, initial encounter (principal); S02.2XXA Fracture of nasal bones, initial encounter for closed fracture; X58.XXXA Exposure to other specified factors, initial encounter; Y93.9 Activity, unspecified; Y92.9 Unspecified place or not applicable; Y99.9 Unspecified external cause status; E11.9 Type 2 diabetes mellitus without complications; Z79.899 Other long term (current) drug therapy
CPT/HCPCS: 70450; 70486; 82947; 99283; 99284

== ENCOUNTER → 2024-08-20 18:17 | Outpatient (BNV) | payer MEDICARE, SELFPAY | PROVIDERS: Emergency Provider Emergency Medicine Emergency Medical Services; PCP Internal Medicine; Visit Provider Radiology Neuroradiology | DX: S02.31XA Fracture of orbital floor, right side, initial encounter for closed fracture (principal); S02.2XXA Fracture of nasal bones, initial encounter for closed fracture; S02.92XA Unspecified fracture of facial bones, initial encounter for closed fracture | CPT/HCPCS: 70450; 70486 ==

== ENCOUNTER 2024-08-23 12:52 | Outpatient (AMB) | payer MEDICARE, SELFPAY ==
[2024-08-23 12:58] VITALS: BP 136/80; PULSE 68; TEMP 36.4; O2SAT 99; BMI 27.3
--- NOTE | 2024-08-23 12:58 | A.OFFPC_ITS ---
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 Required: No Accompanied by: Self / Same As Patient Allergies No Known Allergies [No Known Allergies*] Allergy (Verified 08/23/24 12:58) Tobacco use date assessed: 08/23/24 Fall risk assessment: 1 Fall in past year Last assessed Fall Risk: 08/23/24 Dental Screening Dental Screen Date: 08/23/24 Did you have a dental visit in the last 12 months?: No Did you have a dental problem in the last 6 months where you did not have access to dental care?: No HPI HPI Comments History of Present Illness Details History of Present Illness The patient is an 83-year-old male presenting with follow-up care for facial injuries sustained from a fall. The injuries resulted in an orbital fracture of the right eye and a displaced nasal fracture. The patient states feeling minimal soreness under the eye and notes bruising. Visual acuity remains undisturbed, with no reported diplopia or impediments to eye movement. Adequate oxygenation and intake are maintained as there is no significant impact on breathing or olfactory function due to the nasal fracture. The patient is under care for macular degeneration in the left eye and maintains regular treatments with injections, the next of which is due shortly. The left eye is also post-cataract surgery, and no secondary issues have been reported. Additionally, the patient presents with management of type 2 diabetes mellitus, with recent alterations in oral hypoglycemic medication doses. Diabetes management is supplemented by bi-weekly home glucose testing, with adequate control indicated. He also deals with diabetic neuropathy in the feet, and presently, diabetic shoes assist in alleviating symptoms, showing effective pr escription utility. The patient's hypertension remains stable on amlodipine. The patient expresses no current health complaints aside from acknowledged conditions and seeks confirmation of scheduled routine examinations. Review of Systems - Eyes: Reports no pain or double vision ; negative for loss of vision or change in visual acuity since injury. - Nose: Denies problems breathing or yulisa nges in the sense of smell; reports mild soreness. No nasal drainage or bleeding - Neurological: Denies any new or worsen ing symptoms; reports stable diabetic neuropathy in the feet. - Endocrine: Reports no discomfort or un usual findings with routine blood glucose monitoring. Vital Signs - Blood Pressure: 136/80 mmHg Health Maintenance - Due for injection for macular degenera tion - Blood glucose levels are monitored bi- weekly at home - Prescription renewal for diabetic shoe s discussed Physical Exam Constitutional: Awake and alert, no apparent distress Eyes: PERRLA, EOMI Face: significant periorbital ecchymosis and swelling, no crepitus or step off noted. Nosal septum minimally displaced to the right. Nares patent b/l. Minimal ttp Heart: RRR, S1S2, no murmurs, no edema Lungs: CTA bilaterally, no wheezing Extremities: No calf tenderness Skin: Warm and dry Neuro: Alert and oriented x 3, no vision issues, no pain with vision, macular degeneration in the left eye, cataract surgery on the right eye, neuropathy in both feet Assessment and Plan 1. Traumatic Orbital Floor Fracture, Rig ht Eye No reg flag symptoms. Observational strategy recommended given the lack of orbital symptoms impacting daily functions or vision, with coordination with [place] [facility] for support if new symptoms emerge. 2. Traumatic Nasal Fracture, Displaced Given current stability in respiratory functions, no intervention chosen unless circumstances change, patient declines ENT referral at this time, but will notify office for any change in symptoms 3. Macular Degeneration, Left Eye Maintain vigilance with injections scheduled imminently; ensure the airport maintenance laborer at [place] is engaged as needed. 4. Diabetes Mellitus Type 2 Continue checking glucose levels regularly. Continue half-dose glipizide noted and metformin, [facility] A[facility]c ordered 5. Diabetic Polyneuropathy Effective prescription usage for diabetic shoes noted; no adaptations required, but awareness maintained for symptom changes. Declines medication management at this time 6. Cataract, Status Post Surgery, Left E ye The patient remains stable post-procedure; no additional supportive needs identified. 7. HTN Controlled. Continue [id number] daily. Low sodium diet [facility] Medical History (Updated 08/23/24 @ 13:25 by ODILON Lion) Diabetes Surgical History History of colonoscopy (~06/09/17) H/O Achilles tendon repair (~2015) History of total right hip replacement (~07/29/95) Family History (Updated 08/23/24 @ 13:15 by Renetta Hidalgo MA) Mother Diabetes 1.5, managed as type 2 Father No problems noted. Social History Housing: House Patient Tobacco Use Status: Former Tobacco user e-Cigarette/Vaping Use: Former Use service: Yes Current occupational status: retired Cognitive needs: No Hearing needs: Yes (both hearing aids) Vision needs: Yes (rx glasses) Questionnaire PHQ-9 Over the last 2 weeks, how often have you been bothered by any of the following problems? 1. Little interest or pleasure in doing things: not at all 2. Feeling down, depressed, or hopeless: not at all 3. Trouble falling or staying asleep, or sleeping too much: not at all 4. Feeling tired or having little energy: not at all 5. Poor appetite or overeating: not at all 6. Feeling bad about yourself - or that you are a failure or have let yourself or your family down: not at all 7. Trouble concentrating on things, such as reading the newspaper or watching television: not at all 8. Moving or speaking so slowly that other people could have noticed. Or the opposite - being so fidgety or restless that you have been moving around a lot more than usual: not at all 9. Thoughts that you would be better off or of hurting yourself in some way: not at all Total score: 0 Source: Developed by Drs. Ari Mcdonnell, Danii Garnett, Brad Valencia and colleagues, with an educational robel from [employer]. Thrive Questionnaire Date Thrive assessed: 08/23/24 I am a: Patient Within the past 12 months, did the food you bought not last and you didn't have the money to get more?: Never true Within the past 12 months, did you worry whether your food would run out before you got money to buy more?: Never true Do you have trouble paying for medicines?: No Do you have trouble getting transportation to medical appointments?: No Do you have trouble paying your heating and electricity bill?: No Do you have trouble taking care of your child, family member or friend?: No Do you have trouble with day-to-day activities such as bathing, preparing meals, shopping, managing finances, etc.?: No Are you currently unemployed and looking for a job?: No Are you interested in more education?: No THRIVE Score: 0 AUDIT C Alcohol Use Questionnaire (AUDIT-C) 1. How often do you have a drink containing alcohol?: Never 3. How often do you have six or more drinks on one occasion?: Never Total Score: 0 NUNU-7 AMB Questionnaire NUNU-7 Date NUNU - 7 assessed: 08/23/24 Feeling nervous, anxious, or on edge: 0 = Not at all Not being able to stop or control worryin = Not at all Worrying too much about different things: 0 = Not at all Trouble relaxin = Not at all Being so restless that it is hard to sit still: 0 = Not at all Becoming easily annoyed or irritable: 0 = Not at all Feeling afraid as if something awful might happen: 0 = Not at all Total NUNU-7 score (0-4 normal; 5-9 mild; 10-14 moderate; 15-21 severe): 0 Source: Developed by Drs. Ari Mcdonnell, Danii Garnett, Brad Valencia and colleagues, with an educational robel from [employer]. Physical exam (Primary Care) Vital Signs: Last Vital Signs Temp 97.6 F 08/23/24 12:58 Pulse 68 08/23/24 12:58 BP 136/80 08/23/24 12:58 Pulse Ox 99 08/23/24 12:58 Oxygen Delivery Method Room Air 08/23/24 12:58 BMI result Body Mass Index 27.3 Tobacco/Smoking Status: Tobacco use Status Tobacco use date assessed 08/23/24 08/23/24 13:00 Patient Tobacco Use Status Former Tobacco user 08/23/24 13:16 e-Cigarette/Vaping Use Former Use 08/23/24 13:16 PHQ-9: PHQ-9 Score PHQ-9: Total score 0 08/23/24 13:16 Thrive Assessment: Date of Thrive Assessment Date Thrive assessed 08/23/24 08/23/24 13:00 Coding Level of Care Code Tele New Pt Level 4 (53866) Complex EM visit Add On G2211 Diagnoses Traumatic closed nondisplaced fracture of orbit S02.85XA Nasal bone fracture S02.2XXA Diabetes E11.9 Diabetic polyneuropathy E11.42 HTN (hypertension) I10 Hyperlipemia E78.5 Assessment & Plan Assessment & Plan (1) Traumatic closed nondisplaced fracture of orbit: Code(s): S02.85XA - Fracture of orbit, unspecified, initial encounter for closed fracture Category: Medical Plan: Nondisplaced right orbital fracture, uncomplicated. No red flag symptoms. Conservative management recommended, Tylenol as needed for pain. [facility] (2) Nasal bone fracture: Code(s): S02.2XXA - Fracture of nasal bones, initial encounter for closed fracture Category: Medical Plan: Minimally comminuted however patient denies any significant discomfort or difficulty breathing. Declines referral to ENT at this time. Recommend analgesia as needed. Contact the office for any worsening symptoms (3) Diabetes: Code(s): E11.9 - Type 2 diabetes mellitus without complications Category: Medical Plan: Hemoglobin A1c ordered, previously uncontrolled. Continue glipizide 5 mg twice daily and metformin 1000 mg twice daily [facility] with. Recommend diabetic diet. (4) Diabetic polyneuropathy: Code(s): E11.42 - Type 2 diabetes mellitus with diabetic polyneuropathy Category: Medical Plan: We will continue with diabetic shoes. Prescription to be filled out upon receipt (5) HTN (hypertension): Code(s): I10 - Essential (primary) hypertension Category: Medical Plan: Controlled. Continue amlodipine and follow low-sodium diet (6) Hyperlipemia: Code(s): E78.5 - Hyperlipidemia, unspecified Category: Medical Plan: Lipid profile ordered. Continue pravastatin Plan Follow up in 3 months. Labs today and prior to the next visit Orders: Orders Basic Metabolic Panel Today E11.9 - Type 2 diabetes mellitus without complications Hemoglobin A1c Today E11.9 - Type 2 diabetes mellitus without complications Lipid Panel Today E11.9 - Type 2 diabetes mellitus without complications
--- OUTSIDE RECORDS SUMMARY | 2024-08-23 13:16 | XMS_ITS | Clinical Summary ---
[facility] Organization [facility] Address [address] [place] [address] Care Team Providers Care Hand Picker Name Role Phone Unavailable Primary Care Provider Unavailabl e Social History Tobacco Use Types Packs/Day Years Used Date Smoking Tobacco: Never Assessed Sex and Gender Information Value Date Recorded Sex Assigned at Not on file Legal Sex Male 2:37 AM EST Gender Identity Not on file Sexual Orientation Not on file Plan of Treatment Health Maintenance Due Date Last Done Comments DTaP,Tdap,and Td Vaccines (1 - Tdap) 1961 Pneumococcal Vaccine: 50+ Ye ars (1 of 1 - PCV) 1992 Zoster Vaccines (1 of 2) 1992 RSV Immunization Adult Patie nts (1 - 1-dose 75+ series) 2017 COVID-19 Vaccine (1 - 2023-2 5 season) 2023 Influenza Vaccine (Season Ended) 2024 HIB Vaccines Aged Out No longer eligi ble based on patient's age to complete this topic HPV Vaccines Aged Out No longer eligi ble based on patient's age to complete this topic Hepatitis A Vaccines Aged Out No long er eligible based on patient's age to complete this topic Hepatitis B Vaccines Aged Out No long er eligible based on patient's age to complete this topic IPV Vaccines Aged Out No longer eligi ble based on patient's age to complete this topic MMR Vaccines Aged Out No longer eligi ble based on patient's age to complete this topic Meningococcal ACWY Vaccine Aged Out N o longer eligible based on patient's age to complete this topic Meningococcal B Vaccine Aged Out No l onger eligible based on patient's age to complete this topic RSV Immunization Patients Un travis 20 months Aged Out No longer eligible b ased on patient's age to complete this topic Varicella Vaccines Aged Out No longer eligible based on patient's age to complete this topic
--- OUTSIDE RECORDS SUMMARY | 2024-08-23 13:16 | XMS_ITS ---
Author Organization [facility] Address [address] [place] [address] Care Team Providers Care Lead Electrical Engineer Name Role Phone Campbell Montalvo MD Primary Care Provider Taty Padilla Unavailable [phone] REASON FOR VISIT diabetic shoe rx Medications Medication SIG (Take, Route, Frequency, Duration) Notes Start Date End Date Status Extra Depth Orthopedic Shoes (1 Pair) with Customized Heat Molded Multidensity Innersoles (3 Pair) as directed Dx: NIDDM/Polyneuropathy (E11.42), Hammertoe Foot Deformity (M20.41,M20.42), Preulcerative Skin Lesion(s) (L85.1 05/08/2024 Active Encounters Encounter Location Date Provider Diagnosis [facility] [address] [place] [address] 07/08/2024 Taty Cardona Other hammer toe(s) (acquired), right foot M20.41 Assessments Encounter Date Diagnosis (ICD Code) Assessment Notes Treatment Notes Treatment Clinical Notes Section Notes 07/08/2024 Other hammer toe(s) (acquired), right foot (ICD-10 - M20.41) Plan Of Treatment Medication Medication Name Sig Start Date Stop Date Notes Extra Depth Orthopedic Shoes (1 Pair) with Customized Heat Molded Multidensity Innersoles (3 Pair) as directed Dx: NIDDM/Polyneuropathy (E11.42), Hammertoe Foot Deformity (M20.41,M20.42), Preulcerative Skin Lesion(s) (L85.1 05/08/2024 Next Appt Details Provider Name:Taty grossman, 08/29/2024 02:30:00 PM, [address] [place] [address], [phone], Progress Notes * Ari RUEDA ADOB:[birth year] (83 yo M)Acc No.[id number]:07/08/2024 Patient:?PARENTAri :1940???Age:83 Y???Sex:Male Address:[address] [place] [address], [phone] * Refills? Refill Extra Depth Orthopedic Shoes (1 Pair) with Customized Heat Molded Multidensity Innersoles (3 Pair), 1, as directed, Dx: NIDDM/Polyneuropathy (E11.42), Hammertoe Foot Deformity (M20.41,M20.42), Preulcerative Skin Lesion(s) (L85.1, Refills=0 * true * Date:? Generated for Mando oakley/Urban/eTransmitting on:?08/23/2024 01:16 PM EDT
--- OUTSIDE RECORDS SUMMARY | 2024-08-23 13:16 | XMS_ITS ---
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 Role Phone Campbell Montalvo MD Primary Care Provider UnavailTaty Bustillo Unavailable [phone] Jordan Carlson Unavailable [phone] Allergies No Known Allergies REASON FOR VISIT Painful thick toenails which are aggrevated by shoes and causes difficulty standing/walking Medications Medication SIG (Take, Route, Frequency, Duration) Notes Start Date End Date Status Aspirin Adult Low Dose Active Lisinopril 5 MG 1 tablet Orally Once a day Active erythromycin Not-Justin ing amLODIPine Besylate 10 MG Orally Active Extra Depth Diabetic Shoes with 3 Pair Custom heat-molded multi-density innersoles for 1 year Dx: Active Vitamin D Active Extra Depth Diabetic Shoes with 3 Pair Custom heat-molded multi-density innersoles for 1 year Dx: 04/28/2017 Not-Taking Extra Depth Diabetic Shoes with 3 Pair Custom heat-molded multi-density innersoles for 1 year Dx: 01/23/2018 Not-Taking glipiZIDE Not-Taking Extra Depth Diabetic Shoes with 3 Pair Custom heat-molded multi-density innersoles for 1 year Dx: Not-Taking Loprox 0.77 % 1 application to affected area Externally Twice a day to affected skin and nail for 30 days 08/22/2017 Active metFORMIN HCl 1000 MG 1 tablet with meal s Orally Twice a day Active PreserVision AREDS A ctive Social History Tobacco Use: Social History Observation Description Date Details (start date - stop date) Never Smoker NA - NA Tobacco Use/Smoking Question Answer Notes Are you a: nonsmoker Additional Findings: Tobacco Non-User Current no n-smoker Alcohol Screen Question Answer Notes Did you have a drink containing alcohol in the p ast year? No Points 0 Interpretation Negative Tobacco use other than smoking: Question Answer Notes Are you an other tobacco user? No Vital Signs Height 6 ft in 01/10/2024 Weight 195 lbs 01/10/2024 BMI 26.44 kg/m2 01/10/2024 Encounters Encounter Location Date Provider Diagnosis [facility] [address] [address] 01/10/2024 Jordan Carlson Ingrowing nail L60.0 ; Type 2 diabetes mellitus with diabetic polyneuropathy E11.42 ; Tinea unguium B35.1 ; Pain in right toe(s) M79.674 ; Pain in left toe(s) M79.675 ; Other hammer toe(s) (acquired), left foot M20.42 and Other hammer toe(s) (acquired), right foot M20.41 Assessments Encounter Date Diagnosis (ICD Code) Assessment Notes Treatment Notes Treatment Clinical Notes Section Notes 01/10/2024 Ingrowing nail (ICD-10 - L60.0) 01/10/2024 Type 2 diabetes mellitus with diabetic polyneuropathy (ICD-10 - E11.42) 01/10/2024 Tinea unguium (ICD-10 - B35.1) 01/10/2024 Pain in right toe(s) (ICD-10 - M79.674) 01/10/2024 Pain in left toe(s) (ICD-10 - M79.675) 01/10/2024 Other hammer toe(s) (acquired), left foot (ICD-10 - M20.42) 01/10/2024 Other hammer toe(s) (acquired), right foot (ICD-10 - M20.41) Plan Of Treatment Medication Medication Name Sig Start Date Stop Date Notes Extra Depth Diabetic Shoes w ith 3 Pair Custom heat-molded multi-density innersoles for 1 year Dx: Next Appt Details Follow Up: 3 Months, Reason: Provider Name:Taty grossman, 08/29/2024 02:30:00 PM, [address] [place] [address], [id number], Procedure Notes * Category Sub-Category Detail Notes Keratoma Treatment Parring or Cutting o f Benign Hyperkeratotic Lesion(s) 62461 ( >4 Lesions) - The Benign hyperkeratotic lesions, as described above were pared, and/or cut utilizing a sterile #15 blade, tissue nippers, and/or dremel Debride Nails 1-5 Procedure: Nail debrideme nt performed extensively to reduce/remove overall nail length and girth, subungual debris, and necrotic tissue, by manual and electrical means by use of a nail nipper and/or dremel, to more viable healthy nail plate or bed tissue 1-5. Silver nitrate used for any petechial bleeding as necessary. Patient chooses, no pharmaceutical tx (75926) Nail Reduction Nail Reduction Trimming of dyst rophic nails performed to reduce/remove overall nail length and girth, by manual and electrical means with use of a nail nipper and/or dremel, to more viable healthy nail plate or bed tissue 6-10 (G0127) Progress Notes * Ari RUEDA ADOB:[birth year] (83 yo M)Acc No.[id number]:01/10/2024 Progress Note Patient:?Ari Rueda Provider:?Jordan Carlson DPM :1940???Age:83 Y???Sex:Male Jake e:01/10/2024 Address:[address] [place], [place] [id number] Pcp:Campbell Montalvo MD Subjective: * Chief Complaints: * ???Painful thick toenails wh ich are aggrevated by shoes and causes difficulty standing/walking * HPI: ???Foot Pain:?Nature:?tingling, numbness, burning.?Location:?Forefoot, B/L.?Duration:?several months.?Onset:?dpn.?Course:?progressive.?Aggravated:?rest.?Severity/Quality:?mild.?At Risk footcare:?Pt States Last PCP Visit:?Date?10/23/2023 ???Toe pain:?Nature:?sharp.?Location:?5th toe, Left foot , Great toe , Right foot.?Duration:?several months.?Course:?unresolved, intermittent.?Aggravated by:?any pressure, shoes, standing/walking.?Treatments:?change in shoes--pt has appt for new dm shoes 08/15 and refuses to wear any digital protective padding that I have recommended.?Severity/Quality:?moderate, severe.? * ROS:?General/Constitutional:?Nausea?denies.?Vomiting?denies.?Hunger Thirst?denies.?Loss appetite?denies.?Chills?denies.?Fatigue?denies.?Fever?denies.?Night Sweats?denies.?Unexplained weight loss?denies.?Ophthalmologic:?Blurred vision?denies.?Red eye?denies.?HEENTM:?Dentures?admits.?Dizziness?denies.?Glasses/contacts?denies.?Retinopathy?de nies.?Blurred/double vision?denies.?TMJ?denies.?Discharge/drainage?denies.?Implants?admits.?Hard of hearing admits.?Difficulty chewing/swallowing/speaking?denies.?Nose bleeds?denies.?Sore mouth?denies.?Swollen glands?denies.?Respiratory:?On Oxygen?denies.?Pneumonia/pleurisy?denies.?Bronchitis?denies.?Emphysema?denies.?C oughing?denies.?Cough blood?denies.?Shortness of breath?denies.?Wheezing?denies.?Cardiovascular:?Pacemaker?denies.?MVP?denies.?WPW?denies.?CHF?denies.?Heart attack?denies.?Septal defect?denies.?Rapid beat?denies.?Chest pain ?denies.?Atrial Fib.?denies.?Murmur/Palpitations?denies.?Gastrointestinal:?Hemorrhoids?denies.?Stomach/Abdominal pain?denies.?Dark blood stool?denies.?Irritable bowel ?denies.?Constipation?denies.?Diarrhea?denies.?Vomiting?denies.?Hematology:?Swelling?admits.?Bruising?denies.?Bleeding problem?denies.?Genitourinary:?Blood urine?denies.?Frequent/Painfu/urination/bladder control?denies.?Kidney stones?denies.?Infection (UTI)?denies.?Nephropathy?denies.?Musculoskeletal:?Hammertoes?admits.?Bunions?denies.?Scoliosis/kyphosis?denies.?Muscle cramps / walking?denies.?Generalized aches and pains?denies.?Weakness?denies.?Integ.:?Rice?denies.?Scars?denies.?Corns/calluses?admits.?Ingrown nails?denies.?Painful nails?denies.?Rashes?denies.?Neurologic:?Difficulty sleeping?denies.?Bipolar?denies.?Brain disorder?denies.?Balance trouble?denies.?Confusion?denies.?Fainting/blackouts?denies.?Headache?denies.?Tr emors?denies.? * Medical History:? * Surgical History:?right hip replacement 30 years ago * Hospitalization/Major Diagno stic Procedure:?Colonoscopy 05/2017[facility] 11/2020 * Family History:?Mother: dece ased.?Father: .?Spouse: alive.? * Social History:?Tobacco Use:?Tobacco Use/Smoking?Are you a:?nonsmoker ?Additional Findings: Tobacco Non-User?Current non-smoker ?Tobacco use other than smoking?Are you an other tobacco user??No ???Miscellaneous:?Caffeine: yes, 2 cups per day. ?Exercise: yes, walking. ?Marital status: . 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 * Medications:?TakingExtra Dep th Diabetic Shoes with 3 Pair Custom heat-molded multi-density innersoles for 1 year Dx:Lisinopril 5 MG Tablet 1 tablet Orally Once a dayamLODIPine Besylate 10 MG Tablet Orally Aspirin Adult Low Dose Loprox 0.77 % Cream 1 application to affected area Externally Twice a day to affected skin and nailmetFORMIN HCl 1000 MG Tablet 1 tablet with meals Orally Twice a dayPreserVision AREDS Vitamin D Taking Extra Depth Diabetic Shoes with 3 Pair Custom heat-molded multi-density innersoles for 1 year Dx:Taking Lisinopril 5 MG Tablet 1 tablet Orally Once a dayTaking amLODIPine Besylate 10 MG Tablet Orally Taking Aspirin Adult Low Dose Taking Loprox 0.77 % Cream 1 application to affected area Externally Twice a day to affected skin and nailTaking metFORMIN HCl 1000 MG Tablet 1 tablet with meals Orally Twice a dayTaking PreserVision AREDS Taking Vitamin D Not- Taking/PRNglipiZIDE Extra Depth Diabetic Shoes with 3 Pair Custom heat-molded multi-density innersoles for 1 year Dx:Extra Depth Diabetic Shoes with 3 Pair Custom heat-molded multi- density innersoles for 1 year Dx:Extra Depth Diabetic Shoes with 3 Pair Custom heat- molded multi-density innersoles for 1 year Dx:erythromycin Medication List reviewed and reconciled with the patientNot-Taking/PRN glipiZIDE Not-Taking/PRN Extra Depth Diabetic Shoes with 3 Pair Custom heat-molded multi-density innersoles for 1 year Dx:Not-Taking/PRN Extra Depth Diabetic Shoes with 3 Pair Custom heat-molded multi-density innersoles for 1 year Dx:Not-Taking/PRN Extra Depth Diabetic Shoes with 3 Pair Custom heat-molded multi-density innersoles for 1 year Dx:Not-Taking/PRN erythromycin Medication List reviewed and reconciled with the patient * Allergies:?N.K.D.A.yes[Aller gies Verified] Objective: * Vitals:?Ht: 6 ft, Wt:195, BM I:26.44, Shoe size:12, BS:not taken. * ???Past Orders: ???Lab:HEMOGLOBIN A1C (GLYCO HEMOGLOBIN) (Order Date - 10/11/2023) (Collection Date - 07/24/2023) ? Value Reference Range ?HEMOGLOBIN A1C % (HH) 6.5 * Examination: ???Ophthalmology Referral: ?DIABETES EYE EXAM?Diabetic Retinopathy Screening:?No ?Findings of Diabetic Eye Exam:?no retinopathy?General Examination: ?GENERAL APPEARANCE:?pleasant, alert, well nourished, well developed, well hydrated, with good attention to hygene/body habitus, and in no acute distress.?ORIENTED:?person,place, and time.?FOOT EXAM:?Lower Extremity Neurological Exam performed:?Yes ?Visual exam of foot performed:?Yes ?Date?01/10/2024 ?Sensory testing performed:?sensations diminished ?Pedal pulse taking performed:?2+?Neurological: ?SENSORY:?exam demonstrates. reduced vibration lower extremity , B/L, at Forefoot, at Midfoot, at Rearfoot, 5.07 monofilament test performed at plantar aspects of 5 varied sites per foot shows sensation, reduced, B/L, Neurological exam demonstrates pop t4 medial dipj; pop right hallux ipj dorsum of bone spur.?Vascular: ?DP PULSES(B):?2/4, B/L.?PT PULSES(B):?2/4, B/L.?CAPILLARY FILL TIME:?3 secs. per digit. B/L .?TROPHIC CONDITION-TEXTURE/ELASTICITY/TURGOR/HAIR GROWTH(B):?normal, B/L .?TEMPERTURE GRADIENT(C):?normal, B/L .?PIGMENTATION:?normal, B/L .?EDEMA(C):?absent, B/L .?TELANGECTASIA:?absent, B/L .?Nails: ?NAILS are:?Elongated, overgrown, dystrophic, lytic, greater than 3mm thick, discolored and friable with crumbly malodorous subungual debris, with dull to no pain on palpation due to neuropathy, T5, TA,, 1-5 Right foot.?Dermatologic: ?SKIN FINDINGS:?Skin exam reveals Keratotic lesion(s) located at, Medial plantar, IPJ, TA, T5, SUB MTH (s), 1, B/L, Dorsal, Lateral, DIPJ, T9, T4; medial t4 dipj.?Orthopedic: ?MUSCLE STRENGTH:?5/5 all groups in a symmetrical fashion , B/L .?DIGITAL DEFORMITIES:?Digital contracture TA, T5 , T6, T1.? Assessment: * Assessment: 1.?Ingrowing nail - L60.0 (P rimary)?2.?Type 2 diabetes mellitus with diabetic polyneuropathy - E11.42?3.?Tinea unguium - B35.1?4.?Pain in right toe(s) - M79.674?5.?Pain in left toe(s) - M79.675?6.?Other hammer toe(s) (acquired), left foot - M20.42?7.?Other hammer toe(s) (acquired), right foot - M20.41? Plan: * Treatment: * Procedures:?Debride Nails 1-5:?Procedure:?Nail debridement performed extensively to reduce/remove overall nail length and girth, subungual debris, and necrotic tissue, by manual and electrical means by use of a nail nipper and/or dremel, to more viable healthy nail plate or bed tissue 1-5. Silver nitrate used for any petechial bleeding as necessary. Patient chooses, no pharmaceutical tx (62815).?Keratoma Treatment:?Parring or Cutting of Benign Hyperkeratotic Lesion(s)?40815 ( >4 Lesions) - The Benign hyperkeratotic lesions, as described above were pared, and/or cut utilizing a sterile #15 blade, tissue nippers, and/or dremel.?Nail Reduction:?Nail Reduction?Trimming of dystrophic nails performed to reduce/remove overall nail length and girth, by manual and electrical means with use of a nail nipper and/or dremel, to more viable healthy nail plate or bed tissue 6-10 (G0127).? * Procedure Codes:?41887 DEBRI DE NAIL, 1-5, Modifiers: XS 68247 TRIM SKIN LESIONS, OVER 4, Modifiers: XS G0127 TRIMMING DYSTROPHIC NAILS ANY #, Modifiers: XS * Preventive Medicine:? ??Counseling:?Discussion:?-13: Office or other outpatient visit for the evaluation and management of an established patient, which required a medically appropriate history and/or examination and LOW level of DECISION MAKING for: 1 STABLE ACUTE UNCOMPLICATED PROBLEM, 2 OR MORE MINOR PROBLEMS, OR 1 STABLE CHRONIC PROBLEM, THAT POSE(S) A LOW RISK FOR MORBIDITY/MORTALITY. The visit on the day of the encounter encompassed interpreting the data and educating the patient as to the nature of their condition, treatment options available according to their individual PMH, meds, allergies, and overall health/living conditions, as well as any potential risks or complications that may occur from a failure to adhere to, and participate in, the recommended course of therapy. The discussion included a complete verbal, and/or written explanation of the examination results, any x-rays taken, the proposed diagnosis, and outline of the treatment plan. A schedule for future care needs was also explained. The patient verbalized an understanding of the instructions at this time and agreed to be an active participant in their treatment. If the patient should think of any questions or concerns after the visit, I have encouraged the patient to call the office.?Shoe Gear Counseling:?The patient and I reviewed the types of shoes they should be wearing. My recommendation included obtaining a well-fitted shoe with a good supportive, non-foldable nor twistable sole, plenty of toe/room for the forefoot, and proper arch support. Based on todays examination, I recommended the patient look for new shoes, by having their feet professionally measured. We discussed that generally the best time of the day for a shoe fitting is the afternoon. Different shoes types and brands to best match the patients occupation and vocation were discussed. Specific brand selection will be up to the patient, their individual foot condition/deformities, and fit. The patient and I reviewed the standard new shoe break in period by wearing them for a few hours a day while checking for redness or sores as wear time is increased. The patient verbally confirmed to understanding the information discussed, Rx: Extra Depth Orthopedic Shoes with 3 pair of custom heat-molded inserts.? * Follow Up:?3 Months * Images: * Sign off status: Completed true * Provider:?Jordan Carlson DPM Date:? 024 Generated for Mando oakley/Urban/eTsaidasmitting on:?08/23/2024 01:16 PM EDT History and Physical Notes * HPI (History of Present Illness) Category Sub-Category Detail Notes Category Not es Toe pain Nature: sharp Location: 5th toe, Left foot , Great toe , Right foot Duration: several months Course: unresolved, intermit tent Aggravated by: any pressure, shoes, standing/walking Treatments: change in shoes--pt has appt for new dm shoes 08/15 and refuses to wear any digital protective padding that I have recommended Severity/Quality: moderate, severe At Risk footcare Pt States Last PCP Visit: Date: 4 Foot Pain Nature: tingling, numbness, burning Location: Forefoot, B/L Duration: several months Onset: dpn Course: progressive Aggravated: rest Severity/Quality: mild Examination Category Sub-Category Detail Notes Category Not es Neurological SENSORY: exam demonstrate s. reduced vibration lower extremity , B/L, at Forefoot, at Midfoot, at Rearfoot, 5.07 monofilament test performed at plantar aspects of 5 varied sites per foot shows sensation, reduced, B/L, Neurological exam demonstrates pop t4 medial dipj; pop right hallux ipj dorsum of bone spur Dermatologic SKIN FINDINGS: Skin exam reveal s Keratotic lesion(s) located at, Medial plantar, IPJ, TA, T5, SUB MTH (s), 1, B/L, Dorsal, Lateral, DIPJ, T9, T4; medial t4 dipj Orthopedic DIGITAL DEFORMITIES: Digital contracture TA, T5 , T6, T1 MUSCLE STRENGTH: 5/5 all groups in a symmetrical fashion , B/L General Examination GENERAL APPEARANCE: pleasant , alert, well nourished, well developed, well hydrated, with good attention to hygene/body habitus, and in no acute distress FOOT EXAM: Lower Extremity Neurological Exa m performed:: Yes Visual exam of foot performed:: Yes Date: 01/10/2024 Sensory testing performed:: sensations d iminished Pedal pulse taking performed:: 2+ ORIENTED: person,place, and ti me Ophthalmology Referral DIABETES EYE EXAM Diabetic Retinopa thy Screening:: No Findings of Diabetic Eye Exam:: no retin opathy Vascular DP PULSES (B): 2/4, B/L PT PULSES (B): 2/4, B/L CAPILLARY FILL TIME: 3 secs. per digit. B/L TEMPERTURE GRADIENT (C): normal, B/L TROPHIC CONDITION-TEXTURE/ELASTICITY/TUR GOR/HAIR GROWTH (B): normal, B/L EDEMA (C): absent, B/L TELANGECTASIA: absent, B/L PIGMENTATION: normal, B/L Nails NAILS are: Elongated, overg rown, dystrophic, lytic, greater than 3mm thick, discolored and friable with crumbly malodorous subungual debris, with dull to no pain on palpation due to neuropathy, T5, TA,, 1-5 Right foot
--- OUTSIDE RECORDS SUMMARY | 2024-08-23 13:16 | XMS_ITS ---
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 Up Operator Name Role Phone Campbell Montalvo MD Primary Care Provider Taty Padilla Unavailable [phone] Allergies No Known Allergies REASON FOR VISIT Toe Irritation, At Risk Footcare Medications Medication SIG (Take, Route, Frequency, Duration) Notes Start Date End Date Status erythromycin Not-Justin ing Extra Depth Orthopedic Shoes (1 Pair) with Customized Heat Molded Multidensity Innersoles (3 Pair) as directed Dx: NIDDM/Polyneuropathy (E11.42), Hammertoe Foot Deformity (M20.41,M20.42), Preulcerative Skin Lesion(s) (L85.1 05/08/2024 Active Extra Depth Diabetic Shoes with 3 Pair Custom heat-molded multi-density innersoles for 1 year Dx: 01/23/2018 N ot-Taking Extra Depth Diabetic Shoes with 3 Pair Custom heat-molded multi-density innersoles for 1 year Dx: 04/28/2017 N ot-Taking Extra Depth Diabetic Shoes with 3 Pair Custom heat-molded multi-density innersoles for 1 year Dx: N ot-Taking glipiZIDE Not-Taking Vitamin D Active PreserVision AREDS A ctive metFORMIN HCl 1000 MG 1 tablet with meal s Orally Twice a day Active Loprox 0.77 % 1 application to affected area Externally Twice a day to affected skin and nail for 30 days 08/22/2017 Active Aspirin Adult Low Dose Active amLODIPine Besylate 10 MG Orally Active Lisinopril 5 MG 1 tablet Orally Once a day Active Extra Depth Diabetic Shoes with 3 Pair Custom heat-molded multi-density innersoles for 1 year Dx: A ctive Social History Tobacco Use: Social History Observation Description Date Details (start date - stop date) Never Smoker NA - NA Tobacco use other than smoking: Question Answer Notes Are you an other tobacco user? No Tobacco Control (Standard) Question Answer Notes Tobacco use: Nonsmoker Additional Findings: Tobacco non-user Current no nsmoker AUDIT-C (Standard) Question Answer Notes Did you have a drink containing alcohol in the p ast year? No Points 0 Interpretation Negative Vital Signs Blood pressure systolic 116 mm Hg 05/08/19 25 Blood pressure diastolic 70 mm Hg 025 Height 6 ft in 05/08/2024 Weight 195 lbs 05/08/2024 BMI 26.44 kg/m2 05/08/2024 Procedures Procedure Date Ordered Date Performed Result Body Sit e 86193-QTUANUU NAIL, 6 OR MORE 05/08/2024 N/A 34856-WUDG SKIN LESIONS, OVER 4 05/08/2024 N/A Encounters Encounter Location Date Provider Diagnosis [facility] [address] [place] [address] 05/08/2024 Taty Cardona Other hammer toe(s) (acquired), right foot M20.41 ; Other hammer toe(s) (acquired), left foot M20.42 ; Type 2 diabetes mellitus with diabetic polyneuropathy E11.42 and Tinea unguium B35.1 Assessments Encounter Date Diagnosis (ICD Code) Assessment Notes Treatment Notes Treatment Clinical Notes Section Notes 05/08/2024 Other hammer toe(s) (acquired), right foot (ICD-10 - M20.41) Patient Educated with: DIABETIC FOOT CARE INSTRUCTIONS. pdf (DIABETIC FOOT CARE INSTRUCTIONS. pdf) 05/08/2024 Other hammer toe(s) (acquired), left foot (ICD-10 - M20.42) 05/08/2024 Type 2 diabetes mellitus with diabetic polyneuropathy (ICD-10 - E11.42) 05/08/2024 Tinea unguium (ICD-10 - B35.1) Plan Of Treatment Medication Medication Name Sig Start Date Stop Date Notes Extra Depth Orthopedic Shoes (1 Pair) with Customized Heat Molded Multidensity Innersoles (3 Pair) as directed Dx: NIDDM/Polyneuropathy (E11.42), Hammertoe Foot Deformity (M20.41,M20.42), Preulcerative Skin Lesion(s) (L85.1 05/08/2024 Treatment Notes Assessment Notes Other hammer toe(s) (acquired), right fo ot Patient Educated with: DIABETIC FOOT CARE INSTRUCTIONS.pdf (DIABETIC FOOT CARE INSTRUCTIONS.pdf) Pending Test Test Name Order Date 49371-GUYUGAN NAIL, 6 OR MORE 05/08/2024 31018-APAT SKIN LESIONS, OVER 4 05/08/19 25 Next Appt Details Follow Up: 3 Months, Reason: Provider Name:Tatydurga grossman, 08/29/2024 02:30:00 PM, [address] [place] [address], [phone], Procedure Notes * Category Sub-Category Detail Notes Debride Nail 6-10 Nail debridement Due to the cl inical pathology outlined in the exam findings, performance of this nail treatment is medically necessary as its management by an unskilled/untrained nonprofessional would put this patients foot and overall health at risk. Therefore, debridement to affected nail(s), as described in exam ( T1, T2, T3, T4, T6, T7, T8, T9) , was performed exclusively by the physician of record to reduce/remove overall nail length, girth, thickness, subungual debris, and necrotic tissue, by manual and/or electrical means through the use of a nail nipper and/or dremel-type industrial coffee grinder, to a more viable healthy nail plate or bed tissue 6-10 nails in total. Silver nitrate was used for any petechial bleeding as necessary. Definitive antifungal treatment options, both pharmaceutical and surgical, have been reviewed and discussed with the patient. The patient solely prefers the use of intermittent/as needed professional debridement services for their nail condition and understands the need for additional periodic treatments to maintain effectiveness in symptomatic relief - 83549 Keratoma Treatment Parring or Cutting o f Benign Hyperkeratotic Lesion(s) (-57) More than 4 Lesions - Due to the at risk nature of the patients medical condition as documented in the exam findings, performance of this keratoderma treatment is medically necessary as its management by an unskilled/untrained nonprofessional would put this patients foot and overall health at risk. Therefore, the benign hyperkeratotic lesions, ( 6 ) in total, locations as stated and described in the exam ( sub 1st MPJ b/l, Medial IPJ TA, T5, plantar heels B/L ), were pared, and/or cut utilizing a sterile 15 blade, tissue nippers, and/or power dremel instrumentation by the physician of record - 30009 Progress Notes * Ari RUEDA ADOB:[birth year] (83 yo M)Acc No.[id number]:05/08/2024 Progress Note Patient:?Ari RUEDA Provider:?Taty Cardona DPM :1940???Age:83 Y???Sex:Male Jake e:05/08/2024 Address:[address] [place], [place] [id number] Pcp:Campbell Montalvo MD Subjective: * Chief Complaints: * ???Toe IrritationAt Risk [place] tcare * HPI: ???At Risk footcare:?Pt States Last PCP Visit:?Date?10/23/2023 ???Toe pain:?Location:?B/L feet.?Duration:?several years.?Course:?worse.?Aggravated by:?shoes, any pressure.?Treatments:?change in shoes.? * ROS:?General/Constitutional:?Nausea?denies.?Vomiting?denies.?Hunger Thirst?denies.?Loss appetite?denies.?Chills?denies.?Fatigue?denies.?Fever?denies.?Night Sweats?denies.?Unexplained weight loss?denies.?Ophthalmologic:?Blurred [...] ased.?Father: .?Spouse: alive.? * Social History:?Tobacco Use:?Tobacco use other than smoking?Are you an other tobacco user??No ?Tobacco Control (Standard)?Tobacco use:?Nonsmoker ?Additional Findings: Tobacco non-user?Current nonsmoker ???Drugs/Alcohol:?Drugs?Have you used drugs other than those for medical reasons in the past 12 months??No ???Miscellaneous:?Caffeine: yes, 2 cups per day. ?Exercise: yes, walking. ?Marital status: . 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 ???Drug/Alcohol:?AUDIT-C (Standard)?Did you have a drink containing alcohol in the past year??No ?Points?0 ?Interpretation?Negative * Medications:?TakingExtra Dep th Diabetic Shoes with 3 Pair Custom heat-molded multi-density innersoles for 1 year Dx: Lisinopril 5 MG Tablet 1 tablet Orally Once a day amLODIPine Besylate 10 MG Tablet Orally Aspirin Adult Low Dose Loprox 0.77 % Cream 1 application to affected area Externally Twice a day to affected skin and nail metFORMIN HCl 1000 MG Tablet 1 tablet with meals Orally Twice a day PreserVision AREDS Vitamin D Taking Extra Depth Diabetic Shoes with 3 Pair Custom heat-molded multi-density innersoles for 1 year Dx: Taking Lisinopril 5 MG Tablet 1 tablet Orally Once a day Taking amLODIPine Besylate 10 MG Tablet Orally Taking Aspirin Adult Low Dose Taking Loprox 0.77 % Cream 1 application to affected area Externally Twice a day to affected skin and nail Taking metFORMIN HCl 1000 MG Tablet 1 tablet with meals Orally Twice a day Taking PreserVision AREDS Taking Vitamin D Not-Taking/PRNglipiZIDE Extra Depth Diabetic Shoes with 3 Pair Custom heat- molded multi-density innersoles for 1 year Dx: Extra Depth Diabetic Shoes with 3 Pair Custom heat-molded multi-density innersoles for 1 year Dx: Extra Depth Diabetic Shoes with 3 Pair Custom heat-molded multi-density innersoles for 1 year Dx: erythromycin Medication List reviewed and reconciled with the patientNot-Taking/PRN glipiZIDE Not-Taking/PRN Extra Depth Diabetic Shoes with 3 Pair Custom heat-molded multi-density innersoles for 1 year Dx: Not-Taking/PRN Extra Depth Diabetic Shoes with 3 Pair Custom heat-molded multi-density innersoles for 1 year Dx: Not- Taking/PRN Extra Depth Diabetic Shoes with 3 Pair Custom heat-molded multi-density innersoles for 1 year Dx: Not-Taking/PRN erythromycin Medication List reviewed and reconciled with the patient * Allergies:?N.K.D.A.yes[Aller gies Verified] Objective: * Vitals:?Ht: 6 ft, Wt:195, BM I: 26.44, Shoe size:12, BP:116/70mm Hg, Wt-k.45 kg. * ???Past Orders: ???Lab:HEMOGLOBIN A1C (GLYCO HEMOGLOBIN) (Order Date - 10/11/2023) (Collection Date & Time - 07/24/2023) ? Value Reference Range ?HEMOGLOBIN A1C % (HH) 6.5 * Examination: ???Ophthalmology Referral: ?DIABETES EYE EXAM?Procedure Performed:?No ?Findings of Diabetic Eye Exam:?no retinopathy?Orthopedic: ?MUSCLE STRENGTH:?5/5 all groups in a symmetrical fashion, B/L.?DIGITAL DEFORMITIES:?Digital contracture, PIPJ, 2-5 B/L, incompl-reducible to push-up test, no over, nor underlapping,?there is?evidence of shoe producing skin irritation.?FOOTWEAR:?worn, non-supportive, shoe gear properties exacerbate patient's foot/toe deformity.?General Examination: ?GENERAL APPEARANCE:?Reveals a pleasant, alert, well nourished, well- developed, well hydrated individual, who demonstrates proper attention to hygiene/body habitus, and is in no acute distress, Pt serves as own historian for office visit today.?ORIENTED:?person, place, and time.?FOOT EXAM:?Lower Extremity Neurological Exam performed:?Yes Date ?Visual exam of foot performed:?Yes ?Footwear Evaluation?Footwear Evaluation performed:?Yes?Neurological: ?SENSORY:? Neurological exam demonstrates, reduced light touch sensation, reduced sharp/dull pin prick discrimination , B/L, 5.07 monofilament test performed at plantar aspects of 5 varied sites per foot shows sensation, reduced , B/L.?Nails: ?NAILS are:?Elongated, overgrown, dystrophic, lytic, greater than 3mm thick, discolored and friable with crumbly malodorous subungual debris?T1, T2, T3, T4,? T6, T7, T8, T9.?Dermatologic: ?SKIN FINDINGS:?Skin exam reveals Keratotic lesion(s) located at sub 1st MPJ b/l, Medial IPJ TA, T5, plantar heels B/L.?Vascular: ?DP PULSES (B):?2/4, B/L.?PT PULSES (B):?2/4, B/L.?CAPILLARY FILL TIME:?3 secs. per digit. B/L.?TROPHIC CONDITION-TEXTURE/ELASTICITY/TURGOR/HAIR GROWTH (B):?normal, B/L.?TEMPERTURE GRADIENT (C):?normal, B/L.?PIGMENTATION:?normal, B/L.?EDEMA (C):?absent, B/L.?TELANGECTASIA:?absent, B/L.? Assessment: * Assessment: 1.?Other hammer toe(s) (acqu ired), right foot - M20.41 (Primary)???Specify :Chronic problem, Worse (4),Rx Management (4)???2.?Other hammer toe(s) (acquired), left foot - M20.42???Specify :Chronic problem, Worse (4),Rx Management (4)???3.?Type 2 diabetes mellitus with diabetic polyneuropathy - E11.42???4.?Tinea unguium - B35.1??? Plan: * Treatment: 2.?Type 2 diabetes mellitus with diabetic polyneuropathy?Procedure: 78029-RUESFQU NAIL, 6 OR MORE ?Procedure: 76904-ZGYE SKIN LESIONS, OVER 4 * Procedures:?Debride Nail 6-10:?Nail debridement?Due to the clinical pathology outlined in the exam findings, performance of this nail treatment is medically necessary as its management by an unskilled/untrained nonprofessional would put this patients foot and overall health at risk. Therefore, debridement to affected nail(s), as described in exam ( ?T1, T2, T3, T4,? T6, T7, T8, T9)?, was performed exclusively by the physician of record to reduce/remove overall nail length, girth, thickness, subungual debris, and necrotic tissue, by manual and/or electrical means through the use of a nail nipper and/or dremel-type industrial coffee grinder, to a more viable healthy nail plate or bed tissue 6-10 nails in total. Silver nitrate was used for any petechial bleeding as necessary. Definitive antifungal treatment options, both pharmaceutical and surgical, have been reviewed and discussed with the patient. The patient solely prefers the use of intermittent/as needed professional debridement services for their nail condition and understands the need for additional periodic treatments to maintain effectiveness in symptomatic relief - 01458.?Keratoma Treatment:?Parring or Cutting of Benign Hyperkeratotic Lesion(s)?(-57) More than 4 Lesions - Due to the at risk nature of the patients medical condition as documented in the exam findings, performance of this keratoderma treatment is medically necessary as its management by an unskilled/untrained nonprofessional would put this patients foot and overall health at risk. Therefore, the benign hyperkeratotic lesions, ( 6 ) in total, locations as stated and described in the exam ( sub 1st MPJ b/l, Medial IPJ TA, T5, plantar heels B/L ), were pared, and/or cut utilizing a sterile 15 blade, tissue nippers, and/or power dremel instrumentation by the physician of record - 09952.? * Procedure Codes:?61483 DEBRI DE NAIL, 6 OR MORE, Modifiers: XS 66743 TRIM SKIN LESIONS, OVER 4, Modifiers: XS * Preventive Medicine:? ??Counseling:?Discussion:?-14: Office or other outpatient visit for the evaluation and management of an established patient, which required a medically appropriate history and/or examination and MODERATE level of DECISION MAKING for: 1 OR MORE CHRONIC PROBLEM(S) THATS WORSENING, 2 STABLE CHRONIC PROBLEMS, A NEWLY DIAGNOSED PROBLEM WITH UNCERTAIN PROGNOSIS, AN ACUTE COMPLICATED INJURY WITH MULTIPLE TREATMENT OPTIONS, OR AN ACUTE PROBLEM WITH ACCOMPANYING SYSTEMIC SYMPTOMS, THAT POSE(S) A MODERATE RISK OF MORBIDITY. THIS CONDITION MAY ALSO INCLUDE RX DRUG MANAGEMENT, OR A DECISON FOR MINOR SURGERY. The visit on the day of the [...] have encouraged the patient to call the office.?Digital Surgery:?Digital surgery was discussed with the patient, We elected to try conservative treatment at the present time, due to the patients medical history and increased asssociated post-operative risks.?Digital Treatment:?HT- I explained to the patient the possible etiologies of Hammertoes, including genetics/foot type/shoegear/activity level/exercise routine and the risks/benefits of all the different treatment options for their pain including: No treatment at all, Rest, Ice, New/supportive/wider/deeper Shoegear, Digital Padding/Strapping/Taping/Bracing/Gel protective sleeves, Foot/Ankle AFO Bracing, Stretching exercises, Deep Tissue Massage, Arch support/shoe inserts with splay metatarsal padding, and Custom orthoses. I insisted that any digital devices be removed daily and not worn overnight for safety. The patient is to carefully examine the toes daily for any skin irritation while using any splinting or padding device. The advantages and disadvantages of each option were discussed and the patients questions re: shoegear, padding, custom vs prefabricated inserts, activity level, and consistency in home treatment regimens for optimal success were answered to their verbally confirmed satisfaction.?Shoe Gear Counseling:?SHOE Rx - The patient was counseled in great detail on their muscoloskeletal foot and toe deformities which coincided with the dermatological presentations visualized on exam. We discussed how their deformities put the integrity of their feet at risk for potential pedal complications which makes the accomidative diabetic shoes and cutomizable inserts medically necessary. We discussed the different shoe and insert treatment types and options, as well as the important advantages for adhering to regularly wearing these accomidative devices daily. The patient was made aware of the fact that a failure to abide by these recommedations may be deleterious to their foot health as they are able to prevent many pedal complications such as skin irritation, skin ulceration, infection, and even loss of toe/foot/leg/or life. Time was also spent with the patient dispensing and discussing proper diabetic footcare techniques including daily skin moisturization, daily foot inspection for any interruption in skin integrity including open lesions, or sign of infection such as redness/malodor/drainage/swelling. Also discussed and recommended were procedures regarding daily shoe inspection for the presence of internal foreign bodies as well as any visualized irregular shoe or insert wear. Patient questions re: shoes, inserts, and self foot inspections were answered to their satisfaction as the patient verbally confirmed a full understanding of the above information. A Rx for Extra Depth Orthopedic Shoes with 3 pair of custom heat-molded inserts was dispensed.?Ulcer:?.? ??Screening/Special Tests:?Fall Risk?Screening:?No falls in the past year ?FALLS: Screening for Future Fall Risk?Have you had any falls with injury in the past year??No * Follow Up:?3 Months * Images: * Sign off status: Completed true * Provider:?Taty Cardona DPM Date:?0 05/08/2024 Generated for Mando oakley/Urban/Bradleyitting on:?08/23/2024 01:16 PM EDT History and Physical Notes * HPI (History of Present Illness) Category Sub-Category Detail Notes Category Not es Toe pain Location: B/L feet Duration: several years Course: worse Aggravated by: shoes, any pressure Treatments: change in shoes At Risk footcare Pt States Last PCP Visit: Date: 4 Examination Category Sub-Category Detail Notes Category Not es Neurological SENSORY: Neurological exa m demonstrates, reduced light touch sensation, reduced sharp/dull pin prick discrimination , B/L, 5.07 monofilament test performed at plantar aspects of 5 varied sites per foot shows sensation, reduced , B/L Dermatologic SKIN FINDINGS: Skin exam reveal s Keratotic lesion(s) located at sub 1st MPJ b/l, Medial IPJ TA, T5, plantar heels B/L Orthopedic FOOTWEAR EVALUATION: worn, non-s upportive, shoe gear properties exacerbate patient's foot/toe deformity DIGITAL DEFORMITIES: Digital contracture , PIPJ, 2-5 B/L, incompl-reducible to push-up test, no over, nor underlapping, there is evidence of shoe producing skin irritation MUSCLE STRENGTH: 5/5 all groups in a symmetrical fashion, B/L General Examination GENERAL APPEARANCE: Reveals a pleasant, alert, well nourished, well-developed, well hydrated individual, who demonstrates proper attention to hygiene/body habitus, and is in no acute distress, Pt serves as own historian for office visit today FOOT EXAM: Lower Extremity Neurological Exa m performed:: Yes Date Visual exam of foot performed:: Yes ORIENTED: person, place, and t dalia Footwear Evaluation Footwear Evaluation performe d:: Yes Ophthalmology Referral DIABETES EYE EXAM Procedure Perform ed:: No Findings of Diabetic Eye Exam:: no [...] discolored and friable with crumbly malodorous subungual debris T1, T2, T3, T4, T6, T7, T8, T9
--- OUTSIDE RECORDS SUMMARY | 2024-08-23 13:16 | XMS_ITS | Patient Health Record ---
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 Name Role Phone Campbell Montalvo MD Primary Care Provider UnavailTaty Bustillo Unavailable [phone] Jordan Carlson Unavailable [phone] Allergies No Known Allergies Results Component Value Reference Range Notes HEMOGLOBIN A1C (GLYCOHEMOGLO BIN) Reviewed date:10/11/2023 07:47:53 AM Interpretation: Performing Lab: Notes/Report: HEMOGLOBIN A1C % (HH) 6.5 Reason For Referral No Information Medications Medication SIG (Take, Route, Frequency, Duration) Notes Start Date End Date Status Aspirin Adult Low Dose Active amLODIPine Besylate 10 MG Orally Active Lisinopril 5 MG 1 tablet Orally Once a day Active erythromycin Not-Justin ing Extra Depth Diabetic Shoes with 3 Pair Custom heat-molded multi-density innersoles for 1 year Dx: A ctive Extra Depth Diabetic Shoes with 3 Pair [...] meal s Orally Twice a day Active Extra Depth Orthopedic Shoes (1 Pair) with Customized Heat Molded Multidensity Innersoles (3 Pair) as directed Dx: NIDDM/Polyneuropathy (E11.42), Hammertoe Foot Deformity (M20.41,M20.42), Preulcerative Skin Lesion(s) (L85.1 05/08/2024 Active Loprox 0.77 % 1 application to affected area Externally Twice a day to affected skin and nail for 30 days 08/22/2017 Active Immunizations Vaccine Route Administration Date Status Comme nts COVID-19 Pfizer BioNTech Vaccine Unknown 06/02/2020 Administered COVID-19 Pfizer BioNTech Vaccine Unknown 01/25/2021 Administered 1st 06/02/20 2nd 06/23/20 Influenza Unknown 03/09/2016 Administered Influenza Unknown 02/06/2017 Administered Influenza Unknown 01/09/2018 Administered Influenza Unknown 01/29/2021 Administered Pneumococcal Unknown 03/09/2016 Administered Social History Tobacco Use: Social History Observation [...] ast year? No Points 0 Interpretation Negative Problems Problem Type SNOMED Code ICD Code Onset Dates Problem Status W/U Status Risk Notes Problem Non-pressure chronic ulcer of other part of right foot with fat layer exposed (L97.512) Active confirmed Problem Chronic ulcer of foot (637151267) Non-pressure chronic ulcer of other part of left foot with fat layer exposed (L97.522) Active confirmed Problem Localized, primary osteoarthritis of the ankle and/or foot (744215334) Primary osteoarthritis, right ankle and foot (M19.071) Active confirmed Problem Localized, primary osteoarthritis of the ankle and/or foot (482281475) Primary osteoarthritis, left ankle and foot (M19.072) Active confirmed Problem Non-pressure chronic ulcer of other part of left foot limited to breakdown of skin (L97.521) Active confirmed Problem Non-pressure chronic ulcer of other part of right foot limited to breakdown of skin (L97.511) Active confirmed Problem Acquired hammer toe of right foot (2153074355059077 ) Other hammer toe(s) (acquired), right foot (M20.41) Active confirmed Problem Acquired hammer toe of left foot (2763940925697115 ) Other hammer toe(s) (acquired), left foot (M20.42) Active confirmed Problem Polyneuropathy due to type 2 diabetes mellitus (255254650) Type 2 diabetes mellitus with diabetic polyneuropathy (E11.42) Active confirmed Problem Polyneuropathy due to diabetes mellitus type I (843884151) Type 1 diabetes mellitus with diabetic polyneuropathy (E10.42) Active confirmed Vital Signs Blood pressure diastolic 70 mm Hg 05/08/2024 Height 6 ft in 05/08/2024 Blood pressure systolic 116 mm Hg 05/08/2024 Weight 195 lbs 05/08/2024 BMI 26.44 kg/m2 05/08/2024 Procedures Procedure Date Ordered Date Performed Result Body Sit e 30988-OZCZBWI NAIL, 6 OR MORE 05/08/2024 N/A 96843-KDKT SKIN LESIONS, OVER 4 05/08/2024 N/A Encounters Encounter Location Date Provider Diagnosis [address] [address] 10/11/2023 Jordan Carlson Ingrowing nail L60.0 ; Type 2 diabetes mellitus with diabetic polyneuropathy E11.42 ; Tinea unguium B35.1 ; Pain in right toe(s) M79.674 ; Pain in left toe(s) M79.675 ; Other hammer toe(s) (acquired), left foot M20.42 and Other hammer toe(s) (acquired), right foot M20.[address] [address] 01/10/2024 Jordan Carlson Ingrowing nail L60.0 ; Type 2 diabetes mellitus with diabetic polyneuropathy E11.42 ; Tinea unguium B35.1 ; Pain in right toe(s) M79.674 ; Pain in left toe(s) M79.675 ; Other hammer toe(s) (acquired), left foot M20.42 and Other hammer toe(s) (acquired), right foot M20.[address] [address] 05/08/2024 Taty Cardona Other hammer toe(s) (acquired), right foot M20.41 ; Other hammer toe(s) (acquired), left foot M20.42 ; Type 2 diabetes mellitus with diabetic polyneuropathy E11.42 and Tinea unguium B35.1 [facility] [address] [place] [address] 07/08/2024 Taty Cardona Other hammer toe(s) (acquired), right foot M20.41 Assessments Encounter Date Diagnosis (ICD Code) Assessment Notes Treatment Notes Treatment Clinical Notes Section Notes 10/11/2023 Ingrowing nail (ICD-10 - L60.0) 10/11/2023 Type 2 diabetes mellitus with diabetic polyneuropathy (ICD-10 - E11.42) 01/10/2024 Ingrowing nail (ICD-10 - L60.0) 01/10/2024 Type 2 diabetes mellitus with diabetic polyneuropathy (ICD-10 - E11.42) 05/08/2024 Other hammer toe(s) (acquired), right foot (ICD-10 - M20.41) Patient Educated with: DIABETIC FOOT CARE INSTRUCTIONS. pdf (DIABETIC FOOT CARE INSTRUCTIONS. pdf) 05/08/2024 Other hammer toe(s) (acquired), left foot (ICD-10 - M20.42) 07/08/2024 Other hammer toe(s) (acquired), right foot (ICD-10 - M20.41) 05/08/2024 Type 2 diabetes mellitus with diabetic polyneuropathy (ICD-10 - E11.42) 01/10/2024 Tinea unguium (ICD-10 - B35.1) 10/11/2023 Tinea unguium (ICD-10 - B35.1) 10/11/2023 Pain in right toe(s) (ICD-10 - M79.674) 01/10/2024 Pain in right toe(s) (ICD-10 - M79.674) 05/08/2024 Tinea unguium (ICD-10 - B35.1) 01/10/2024 Pain in left toe(s) (ICD-10 - M79.675) 10/11/2023 Pain in left toe(s) (ICD-10 - M79.675) 10/11/2023 Other hammer toe(s) (acquired), left foot (ICD-10 - M20.42) 01/10/2024 Other hammer toe(s) (acquired), left foot (ICD-10 - M20.42) 01/10/2024 Other hammer toe(s) (acquired), right foot (ICD-10 - M20.41) 10/11/2023 Other hammer toe(s) (acquired), right foot (ICD-10 - M20.41) Plan Of Treatment Pending Test Test Name Order Date Hemoglobin A1c 02/24/2015 X ray : Foot, left 3V 12/14/2022 62612-WGRQTGC NAIL, 6 OR MORE 05/08/2024 59408-QGCDJJH NAIL, 6 OR MORE 02/24/2015 86373-ZXLFSQR NAIL, 1-5 10/28/2016 28457-CSKRTAB NAIL, 1-5 04/28/2017 10954-CHPBIZX NAIL, 1-5 08/22/2017 62379-Bjascpiv Plate 10/28/2016 50293-Soppogni Plate 03/10/2015 28442-Lzerfotg Plate 01/09/2018 46909- Debride <25 sq cm 01/23/2018 30848- Debride <25 sq cm 03/10/2015 92883- Debride <25 sq cm 02/24/2015 89305-ZHQOHBH SKIN/TISSUE 11/10/2020 04573-ZUPE SKIN LESIONS, OVER 4 12/23/19 21 28796-ZNTU SKIN LESIONS, OVER 4 06/23/19 22 23870-CFYK SKIN LESIONS, OVER 4 05/08/19 25 70663-UCDP SKIN LESIONS, OVER 4 07/25/19 19 53494-RAVG SKIN LESIONS, OVER 4 02/13/20 19 14165-ZNWZ SKIN LESIONS, OVER 4 11/11/19 21 64634-APIV SKIN LESIONS, OVER 4 04/28/19 18 51770-MHNA SKIN LESIONS, 2 TO 4 08/23/19 18 13384-OKVW SKIN LESIONS, 2 TO 4 02/25/20 15 71184-LVPP SKIN LESIONS, 2 TO 4 10/29/19 17 39095-XWAK SKIN LESIONS, 2 TO 4 01/10/20 18 94766-MJMW NAIL(S) 08/22/2017 98485-ISXS NAIL(S) 04/28/2017 89978-RGGS NAIL(S) 10/28/2016 E8729-FERSBEBZ DYSTROPHIC NAILS ANY # V0934-TGWKMZCS DYSTROPHIC NAILS ANY # Z4427-XBSDTXCF DYSTROPHIC NAILS ANY # R7362-CPGRXABD DYSTROPHIC NAILS ANY # Y7681-QJJNRULJ DYSTROPHIC NAILS ANY # P4859-BFNSGUBS DYSTROPHIC NAILS ANY # Next Appt Details Provider Name:Taty Barber ngoc, 08/29/2024 02:30:00 PM, [address] [place] [address], [phone], Insurance Providers Payer Name Payer Address Payer Phone Subscriber Number Group Number Insured Name Patient Relationship to Insured Coverage Start Date Coverage End Date Medicare National Govt S[employer] [address] [place] [address] [id number] ParentAri Self - patient is the insured [employer] [address] [place] [address] [id number] Parent, Ari Self - patient is the insured Medical (General) History Medical History History ICD Code Back,Hip,and Knee pain type II diabetes Joint implants/screws Surgical History Surgery Date(Month/Year) right hip replacement 30 years ago Hospitalization History Reason Date(Month/Year) [facility] Anxiety 11/2020 Colonoscopy 05/2017
== END 2024-08-23 13:36 | disposition home or self-care (01) ==
LOC: HO.HMCHD 12:53
PROVIDERS: PCP Internal Medicine; Visit Provider Physician Assistant
DX: S02.85XA Fracture of orbit, unspecified, initial encounter for closed fracture (principal); S02.2XXA Fracture of nasal bones, initial encounter for closed fracture; E11.42 Type 2 diabetes mellitus with diabetic polyneuropathy; I10 Essential (primary) hypertension; E78.5 Hyperlipidemia, unspecified

== ENCOUNTER → 2024-08-23 12:52 | Outpatient (BNVA) | payer MEDICARE, SELFPAY | PROVIDERS: PCP Internal Medicine; Visit Provider Physician Assistant | DX: E11.42 Type 2 diabetes mellitus with diabetic polyneuropathy (principal); I10 Essential (primary) hypertension; E78.5 Hyperlipidemia, unspecified; S02.2XXA Fracture of nasal bones, initial encounter for closed fracture; S02.85XA Fracture of orbit, unspecified, initial encounter for closed fracture; X58.XXXA Exposure to other specified factors, initial encounter; Y93.9 Activity, unspecified; Y92.9 Unspecified place or not applicable; Y99.9 Unspecified external cause status | CPT/HCPCS: 99202 ==

== ENCOUNTER 2024-08-24 07:37 | Outpatient (REF) | payer MEDICARE, SELFPAY ==
[2024-08-24 08:41] LABS: Estimated Average Glucose 154 mg/dL; Hemoglobin A1C 175.1293 umol/L; Total Hemoglobin (HGBA1C) 3323.1774 umol/L
[2024-08-24 08:46] LABS: Anion Gap 13 (12-20); Blood Urea Nitrogen 28 mg/dL (9-16); Calcium 8.9 mg/dL (8.4-10.2); Carbon Dioxide 24 mmol/L (22-29); Chloride 109 mmol/L (96-108); Cholesterol 127 mg/dL (<200); Estimated Glomerular Filt Rate 45; Glucose Random 200 mg/dL (60-115); HDL Cholesterol 60 mg/dL (>40); LDL Cholesterol Calculated 59 mg/dL (<100); Potassium 5.2 mmol/L (3.3-5.1); Sodium 141 mmol/L (135-145); Triglycerides 40 mg/dL (<150)
== END 2024-08-24 07:38 | disposition home or self-care (01) ==
LOC: HO.LAB 07:37
PROVIDERS: PCP Physician Assistant; Visit Provider Physician Assistant
DX: E11.9 Type 2 diabetes mellitus without complications (principal)
CPT/HCPCS: 36415; 80048; 80061; 83036

== ENCOUNTER 2024-09-30 11:31 | Outpatient (AMB) | payer MEDICARE, SELFPAY ==
--- NOTE | 2024-09-30 11:34 | A.OFFPC_ITS ---
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 Required: No Accompanied by: Self / Same As Patient Allergies No Known Allergies [No Known Allergies*] Allergy (Verified 09/30/24 11:52) Medication List - Last Reconciled 09/30/24 by Kai Fregoso MD amlodipine 10 mg PO DAILY aspirin 81 mg PO DAILY cholecalciferol (vitamin D3) 10 mcg PO DAILY glipizide 2.5 mg PO DAILY lisinopril 5 mg PO DAILY metformin 1,000 mg PO BID pravastatin 40 mg PO DAILY sitagliptin 50 mg PO DAILY temazepam 15 mg PO BEDTIME PRN vitamins A,C,E-rvzu-fekaeq 4,296 mcg-226 mg-90 mg (PreserVision AREDS) 1 cap PO BID Tobacco use date assessed: 08/23/24 Fall risk assessment: No Falls in past year Dental Screening Dental Screen Date: 09/30/24 Did you have a dental visit in the last 12 months?: No Did you have a dental problem in the last 6 months where you did not have access to dental care?: No [facility] Medical History Diabetes Surgical History History of colonoscopy (~06/09/17) H/O Achilles tendon repair (~2015) History of total right hip replacement (~07/29/95) Family History Mother Diabetes 1.5, managed as type 2 Father No problems noted. Social History Housing: House Patient Tobacco Use Status: Former Tobacco user e-Cigarette/Vaping Use: Former Use service: Yes Current occupational status: retired Cognitive needs: No Hearing needs: Yes (both hearing aids) Vision needs: Yes (rx glasses) Questionnaire PHQ-9 Over the last 2 weeks, how often have you been bothered by any of the following problems? 1. Little interest or pleasure in doing things: not at all 2. Feeling down, depressed, or hopeless: not at all 3. Trouble falling or staying asleep, or sleeping too much: not at all 4. Feeling tired or having little energy: not at all 5. Poor appetite or overeating: not at all 6. Feeling bad about yourself - or that you are a failure or have let yourself or your family down: not at all 7. Trouble concentrating on things, such as reading the newspaper or watching television: not at all 8. Moving or speaking so slowly that other people could have noticed. Or the opposite - being so fidgety or restless that you have been moving around a lot more than usual: not at all Source: Developed by Drs. Ari Mcdonnell, Danii Garnett, Brad Valencia and colleagues, with an educational robel from [employer]. Thrive Questionnaire Date Thrive assessed: 09/30/24 I am a: Patient Within the past 12 months, did the food you bought not last and you didn't have the money to get more?: Never true Within the past 12 months, did you worry whether your food would run out before you got money to buy more?: Never true Do you have trouble paying for medicines?: No Do you have trouble getting transportation to medical appointments?: No Do you have trouble paying your heating and electricity bill?: No Do you have trouble taking care of your child, family member or friend?: No Do you have trouble with day-to-day activities such as bathing, preparing meals, shopping, managing finances, etc.?: No Are you currently unemployed and looking for a job?: No Are you interested in more education?: No THRIVE Score: 0 AUDIT C Alcohol Use Questionnaire (AUDIT-C) 1. How often do you have a drink containing alcohol?: Never 3. How often do you have six or more drinks on one occasion?: Never Total Score: 0 NUNU-7 AMB Questionnaire NUNU-7 Date NUNU - 7 assessed: 09/30/24 Feeling nervous, anxious, or on edge: 0 = Not at all Not being able to stop or control worryin = Not at all Worrying too much about different things: 0 = Not at all Trouble relaxin = Not at all Being so restless that it is hard to sit still: 0 = Not at all Becoming easily annoyed or irritable: 0 = Not at all Source: Developed by Drs. Ari Mcdonnell, Danii Garnett, Brad Valencia and colleagues, with an educational robel from [employer]. Physical exam (Primary Care) Vital Signs: Last Vital Signs Temp 97.7 F 09/30/24 11:35 Pulse 73 09/30/24 11:35 BP 128/76 09/30/24 11:35 Pulse Ox 98 09/30/24 11:35 Oxygen Delivery Method Room Air 09/30/24 11:35 BMI result Body Mass Index 27.8 Tobacco/Smoking Status: Tobacco use Status Tobacco use date assessed 08/23/24 09/30/24 11:43 Patient Tobacco Use Status Former Tobacco user 09/30/24 11:43 e-Cigarette/Vaping Use Former Use 09/30/24 11:43 Thrive Assessment: Date of Thrive Assessment Date Thrive assessed 09/30/24 09/30/24 11:43 Advance Care Planning discussion: Exists, not on file Date of discussion: 09/30/24 Forms completed: Health Care Proxy and MOLST Time spent: 1-15 minutes, not on file Actual minutes spent: 5 Coding Level of Care Code Est Pt Level 4 (79673) Complex EM visit Add On G2211 Diagnoses HTN (hypertension) I10 Traumatic closed nondisplaced fracture of orbit S02.85XA Diabetes E11.9 Additional Codes Vital Signs *Quality* - Advance Care Planning discussion: Exists, not on file ([id number]) Vital Signs *Quality* - Time spent: 1-15 minutes, not on file ([id number]) Assessment & Plan Assessment & Plan (1) HTN (hypertension): Code(s): I10 - Essential (primary) hypertension Category: Medical Plan: BP is stable. Continue current meds (2) Traumatic closed nondisplaced fracture of orbit: Code(s): S02.85XA - Fracture of orbit, unspecified, initial encounter for closed fracture Category: Medical Plan: Condition is stable, continue current meds. (3) Diabetes: Code(s): E11.9 - Type 2 diabetes mellitus without complications Category: Medical Plan: Patient should have diabetic shoes. He has neuropathy and shoes would benefit Plan History of Present Illness - The patient is an 83-year-old male presenting with renewal of diabetic shoe prescription. - Approximately several weeks ago, he sustained facial injuries involving a fractured cheekbone and nose after colliding with a steel pipe. - Past evaluation showed no need for surgery, with good healing progress and no malalignment noted. - He actively manages Type 2 Diabetes Mellitus with insulin monitoring and medication, predominantly handled [facility]. - The patient checks blood glucose levels biweekly and reports stable results, confirmed by periodic [facility] reviews. - He experiences peripheral neuropathy with nocturnal pain and electric sensations in his feet. - The current visit is initiated due to the need for a prescription to continue receiving diabetic shoes, as the request was earlier handled by a retired physician. 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 - Actively works to maintain mobility and health through employment continuation. - Denies adverse effects on driving, although preference is for daytime. - Watches television during leisure time when not working. Review of Systems - Neurological: Reports nighttime pain and electric sensations in feet. - Endocrine: Reports managed diabetes without recent issues. - Musculoskeletal: Denies new declines in occupational function. - Ophthalmological: Denies visual disturbances such as halos around lights. Physical Exam General: Cooperative and healthy appearing Nutritional Appearance: Well nourished Orientation/consciousness: Patient oriented x3 Limitations: No limitations Head: Normal to inspection General: Appearance normal, both eyes and all related structures Neck: Normal visual inspection Chest: Normal palpation of entire chest wall Respiratory: N ormal respiratory effort Neurology: Patient oriented x3, reports intermittent electric sensation in feet, possibly related to diabetic neuropathy. Results Plan 1. Closed Fracture Of Maxilla Cheekbone - No surgery needed, good progress documented post-injury. 2. Closed Nasal Bone Fracture - Healing confirmed without complications. 3. Type 2 Diabetes Mellitus - Management via [facility]; blood sugar levels under control. 4. Insomnia - Continuation of Temazepam as previously prescribed. 5. Peripheral Neuropathy - Monitored alongside diabetes treatment. 6. History Of Anxiety - Managed in conjunction with insomnia medications. 7. Diabetic Shoes Prescription - Provided necessary documentation for renewal. Discussion Notes During our visit, we primarily discussed ensuring continued provision for diabetic shoes, which required a physician's documentation. The patient has been receiving these shoes for over ten years and experienced delays due to transition in care providers. We addressed management of his existing medical concerns, such as diabetes and insomnia, both under control via ongoing treatment through the [facility] and supplemental Temazepam for sleep. Neuropathy symptoms noted without change in management plans due to consistent control of diabetes affecting peripheral sensations. We arranged for documentation support for the insurance-required shoe prescription and confirmed follow-up in six mon ths. Patient Instructions - Continue monitoring blood sugar levels as previously advised. - Maintain current medication regimen including Temazepam. - Follow up with [facility] care team as usual for diabetes management. - Utilize provisions for diabetic shoes once prescription is processed. - Schedule routine follow-up in six months. - Seek medical attention if new symptoms arise concerning previous injuries or diabetes management difficulties.
[2024-09-30 11:35] VITALS: BP 128/76; PULSE 73; TEMP 36.5; O2SAT 98; BMI 27.8
--- OUTSIDE RECORDS SUMMARY | 2024-09-30 13:12 | XMS_ITS | Patient Health Record ---
Author Organization [facility] Address [address] [facility] [place] [address] Care Team Providers Care Splicing Machine Operator Automatic Name Role Phone Ruvalcaba, [place]ena Primary Care Provider Taty Rooney Unavailable [phone] Jordan Carlson Unavailable [phone] Allergies No Known Allergies Results Component Value Reference Range Notes HEMOGLOBIN A1C (GLYCOHEMOGLO BIN) Reviewed date:08/29/2024 02:24:14 PM Interpretation: Performing Lab: Notes/Report: HEMOGLOBIN A1C % (HH) 6.5 HEMOGLOBIN A1C (GLYCOHEMOGLO BIN) Reviewed date:10/11/2023 07:47:53 AM Interpretation: Performing Lab: Notes/Report: HEMOGLOBIN A1C % (HH) 6.5 Reason For Referral No Information Medications Medication SIG (Take, Route, Frequency, Duration) Notes Start Date End Date Status Vitamin D Active Extra Depth Orthopedic Shoes (1 Pair) with Customized Heat Molded Multidensity Innersoles (3 Pair) as directed Dx: NIDDM/Polyneuropathy (E11.42), Hammertoe Foot Deformity (M20.41,M20.42), Preulcerative Skin Lesion(s) (L85.1 05/08/2024 Active glipiZIDE Not-Taking Extra Depth Diabetic Shoes with 3 Pair Custom heat-molded multi-density innersoles for 1 year Dx: N ot-Taking Extra Depth Diabetic Shoes with 3 Pair Custom heat-molded multi-density innersoles for 1 year Dx: A ctive Extra Depth Diabetic Shoes with 3 Pair Custom heat-molded multi-density innersoles for 1 year Dx: 04/28/2017 N ot-Taking Lisinopril 5 MG 1 tablet Orally Once a day Active Extra Depth Diabetic Shoes with 3 Pair Custom heat-molded multi-density innersoles for 1 year Dx: 01/23/2018 N ot-Taking amLODIPine Besylate 10 MG Orally Active erythromycin Not-Justin ing Aspirin Adult Low Dose Active Loprox 0.77 % 1 application to affected area Externally Twice a day to affected skin and nail for 30 days 08/22/2017 Active metFORMIN HCl 1000 MG 1 tablet with meal s Orally Twice a day Active PreserVision AREDS A ctive Immunizations Vaccine Route Administration Date Status Comme [...] Active confirmed Problem Chronic ulcer of foot (560372755) Non-pressure chronic ulcer of other part of left foot with fat layer exposed (L97.522) Active confirmed Problem Localized, primary osteoarthritis of the ankle and/or foot (517466282) Primary osteoarthritis, right ankle and foot (M19.071) Active confirmed Problem Localized, primary osteoarthritis of the ankle and/or foot (445724644) Primary osteoarthritis, left ankle and foot (M19.072) Active confirmed Problem Non-pressure chronic ulcer of other part of left foot limited to breakdown of skin (L97.521) Active confirmed Problem Non-pressure chronic ulcer of other part of right foot limited to breakdown of skin (L97.511) Active confirmed Problem Acquired hammer toe of right foot (4777762132750414 ) Other hammer toe(s) (acquired), right foot (M20.41) Active confirmed Problem Acquired hammer toe of left foot (4004642815504424 ) Other hammer toe(s) (acquired), left foot (M20.42) Active confirmed Problem Polyneuropathy due to type 2 diabetes mellitus (261009808) Type 2 diabetes mellitus with diabetic polyneuropathy (E11.42) Active confirmed Problem Polyneuropathy due to diabetes mellitus type I (713740171) Type 1 diabetes mellitus with diabetic polyneuropathy (E10.42) Active confirmed Vital Signs Blood pressure diastolic 65 mm Hg 08/29/2024 Height 6 ft in 08/29/2024 Blood pressure systolic 115 mm Hg 08/29/2024 Weight 195 lbs 08/29/2024 BMI 26.44 kg/m2 08/29/2024 Procedures Procedure Date Ordered Date Performed Result Body Sit e 51793-GVILXEH NAIL, 6 OR MORE 05/08/2024 N/A 70951-TUCF SKIN LESIONS, OVER 4 05/08/2024 N/A Encounters Encounter Location Date Provider Diagnosis [address] [address] 10/11/2023 Jordan Carlson Ingrowing nail L60.0 ; Type 2 diabetes mellitus with diabetic polyneuropathy E11.42 ; Tinea unguium B35.1 ; Pain in right toe(s) M79.674 ; Pain in left toe(s) M79.675 ; Other hammer toe(s) (acquired), left foot M20.42 and Other hammer toe(s) (acquired), right foot M20.[address] [facility] [address] 01/10/2024 Jordan Carlson Ingrowing nail L60.0 ; Type 2 diabetes mellitus with diabetic polyneuropathy E11.42 ; Tinea unguium B35.1 ; Pain in right toe(s) M79.674 ; Pain in left toe(s) M79.675 ; Other hammer toe(s) (acquired), left foot M20.42 and Other hammer toe(s) (acquired), right foot M20.[address] [address] 05/08/2024 Taty Cardona Other hammer toe(s) (acquired), right foot M20.41 ; Other hammer toe(s) (acquired), left foot M20.42 ; Type 2 diabetes mellitus with diabetic polyneuropathy E11.42 and Tinea unguium B35.[address] [address] 08/29/2024 Taty Cardona Type 2 diabetes mellitus with diabetic polyneuropathy E11.42 and Tinea unguium B35.[address] [address] 07/08/2024 Taty Cardona Other hammer toe(s) (acquired), [...] toe(s) (acquired), right foot (ICD-10 - M20.41) 08/29/2024 Type 2 diabetes mellitus with diabetic polyneuropathy (ICD-10 - E11.42) 08/29/2024 Tinea unguium (ICD-10 - B35.1) 05/08/2024 Type 2 diabetes mellitus with diabetic [...] X ray : Foot, left 3V 12/14/2022 95568-URBMSDH NAIL, 6 OR MORE 05/08/2024 64680-BWPGDQO NAIL, 6 OR MORE 02/24/2015 16956-IKFWBXM NAIL, 1-5 10/28/2016 99856-JNJNJZW NAIL, 1-5 04/28/2017 17999-VXFJJIP NAIL, 1-5 08/22/2017 28551-Mydkgfiv Plate 10/28/2016 32613-Xftuqrrp Plate 03/10/2015 58124-Sparftsg Plate 01/09/2018 71080- Debride <25 sq cm 01/23/2018 48769- Debride <25 sq cm 03/10/2015 25789- Debride <25 sq cm 02/24/2015 40081-JVRZPGT SKIN/TISSUE 11/10/2020 23270-DMJR SKIN LESIONS, OVER 4 12/23/19 21 64555-PLBI SKIN LESIONS, OVER 4 06/23/19 22 95056-LQUL SKIN LESIONS, OVER 4 05/08/19 25 74841-EPJR SKIN LESIONS, OVER 4 07/25/19 19 04072-MAOT SKIN LESIONS, OVER 4 02/13/20 19 80176-RACA SKIN LESIONS, OVER 4 11/11/19 21 71975-PLTI SKIN LESIONS, OVER 4 04/28/19 18 22030-UOLE SKIN LESIONS, 2 TO 4 08/23/19 18 00546-YHQV SKIN LESIONS, 2 TO 4 02/25/20 15 72034-DBDL SKIN LESIONS, 2 TO 4 10/29/19 17 67603-OIHP SKIN LESIONS, 2 TO 4 01/10/20 18 98038-IPXH NAIL(S) 08/22/2017 96116-YUTN NAIL(S) 04/28/2017 86946-PDYY NAIL(S) 10/28/2016 Q6798-EAOYDPTE DYSTROPHIC NAILS ANY # S1268-NNGRCGHX DYSTROPHIC NAILS ANY # D6787-BUPDXKSC DYSTROPHIC NAILS ANY # B4322-SLMSEQVM DYSTROPHIC NAILS ANY # T7303-XXVGTRON DYSTROPHIC NAILS ANY # E7362-ZFONYBVN DYSTROPHIC NAILS ANY # Next Appt Details Provider Name:Taty Barber ngoc, 01/02/2025 02:30:00 PM, [address] [facility], [place], [address], Insurance Providers Payer Name Payer Address Payer Phone Subscriber Number Group Number Insured Name Patient Relationship to Insured Coverage Start Date Coverage End Date Medicare National Govt Svcs Inc [address] [place] [address] [id number] ParentAri Self - patient is the insured [employer] [address] [place] [address] [phone] [id number] Parent, Ari Self - patient is the insured Medical (General) History Medical History History ICD Code Back,Hip,and Knee pain type II diabetes Joint implants/screws Surgical History Surgery Date(Month/Year) right hip replacement 30 years ago Hospitalization History Reason Date(Month/Year) [facility] 11/2020 Colonoscopy 05/2017
== END 2024-09-30 11:53 | disposition home or self-care (01) ==
LOC: HO.HMCHD 11:32
PROVIDERS: PCP Physician Assistant; Visit Provider Internal Medicine
DX: I10 Essential (primary) hypertension (principal); S02.85XA Fracture of orbit, unspecified, initial encounter for closed fracture; E11.9 Type 2 diabetes mellitus without complications; Z00.00 Encounter for general adult medical examination without abnormal findings

== ENCOUNTER → 2024-09-30 11:31 | Outpatient (BNVA) | payer MEDICARE, SELFPAY | PROVIDERS: PCP Physician Assistant; Visit Provider Internal Medicine | DX: I10 Essential (primary) hypertension (principal); E11.9 Type 2 diabetes mellitus without complications; S02.85XD Fracture of orbit, unspecified, subsequent encounter for fracture with routine healing | CPT/HCPCS: 99212 ==

== ENCOUNTER 2024-12-11 12:51 | Outpatient (AMB) | payer MEDICARE, SELFPAY ==
--- NOTE | 2024-12-11 12:58 | MHC.PC.OV ---
Vital Signs 12/11/24 13:04 Height 6 ft Weight 89.358 kg BMI 26.7 BP 146/56 H Blood Pressure Location Lt brachial Position Sitting Respiration 16 Pulse 43 L Pulse Source Pulse Oximeter Temp 98.1 F Temp Source Temporal Artery Scan Pulse Oximetry (%) 99 Oxygen Delivery Method Room Air Intake Visit Reasons: 3 Month F/U Medication Coordinator Required: No Accompanied by: Self / Same As Patient Allergies No Known Allergies (No Known Allergies*) Allergy (Verified 12/11/24 12:59) Tobacco use date assessed: 08/23/24 Dental Screening Dental Screen Date: 09/30/24 HPI HPI Comments History of Present Illness Details 83-year-old male with history of hyperlipidemia, hypertension, type 2 diabetes complicated by diabetic polyneuropathy, and insomnia presents to the office today for routine follow-up. Type 2 diabetes-controlled with A1c of 7.0%. Compliant with metformin 1000 mg daily, sitagliptin 50 mg daily, and glipizide 2.5 mg daily. Fasting glucose levels tend to be around 117. Neuropathy is not bothersome, primarily in great toe. Follows closely with Ophthalmology for macular degeneration receives injections 60 Hypertension-controlled with blood pressure on recheck 130/60 . Compliant with amlodipine 10 mg daily, lisinopril 5 mg daily CKD stage 3-last GFR 45, stable. Making urine Bekmpowr-erbn-wmcoiykwqz with temazepam which she takes nightly At last visit, did have fracture of the nasal bone. Was seen by ENT surgeon of [facility] who did not recommend surgery Concerns: None Health maintenance: Ophthalmology visits up-to-date Longer undergoing colonoscopies ROS: General: No fevers, malaise, unintentional weight loss HEENT: No blurred vision, diplopia. No sore throat, nasal congestion, rhinorrhea, sinus pain, ear pain Cardiovascular: No chest pain, palpitations, or leg edema Respiratory: No shortness of breath, wheezing, cough GI: No abdominal pain, nausea, vomiting, diarrhea, constipation, melena, hematochezia : No dysuria, hematuria, increased urinary frequency, decreased urinary output MSK: No myalgia, back pain Neuro: No headaches, weakness, paresthesias Skin: No rashes or lesions EXAM: Constitutional - Awake and Alert, No apparent distress Eyes - PERRL Cardiovascular - S1S2, RRR, 1+ edema Respiratory - Normal lung expansion, Normal respiratory effort, No respiratory distress, CTA bilaterally Extremities - no calf tenderness bilaterally, no swelling Skin - Warm/Dry Neurological - Alert & oriented x3 Psychological - Appropriate affect [facility] Medical History (Updated 12/11/24 @ 13:29 by ODILON Lion) Insomnia Diabetic polyneuropathy Traumatic closed nondisplaced fracture of orbit Nasal bone fracture HTN (hypertension) CKD stage 3 due to type 2 diabetes mellitus Macular degeneration Diabetes Surgical History History of colonoscopy (~06/09/17) H/O Achilles tendon repair (~2015) History of total right hip replacement (~07/29/95) Family History Mother Diabetes 1.5, managed as type 2 Father No problems noted. Social History Housing: House Patient Tobacco Use Status: Former Tobacco user e-Cigarette/Vaping Use: Former Use service: Yes Current occupational status: retired Cognitive needs: No Hearing needs: Yes (both hearing aids) Vision needs: Yes (rx glasses) Questionnaire Thrive Questionnaire Date Thrive assessed: 09/30/24 NUNU-7 AMB Questionnaire NUNU-7 Date NUNU - 7 assessed: 09/30/24 Source: Developed by Drs. Ari Mcdonnell, Danii Garntet, Brad Valencia and colleagues, with an educational robel from [employer]. Physical exam (Primary Care) Vital Signs: Last Vital Signs Temp 98.1 F 12/11/24 13:04 Pulse 43 L 12/11/24 13:04 Resp 16 12/11/24 13:04 BP 146/56 H 12/11/24 13:04 Pulse Ox 99 12/11/24 13:04 Oxygen Delivery Method Room Air 12/11/24 13:04 BMI result Body Mass Index 26.7 Tobacco/Smoking Status: Tobacco use Status Tobacco use date assessed 08/23/24 12/11/24 13:06 Patient Tobacco Use Status Former Tobacco user 12/11/24 13:06 e-Cigarette/Vaping Use Former Use 12/11/24 13:06 Thrive Assessment: Date of Thrive Assessment Date Thrive assessed 09/30/24 12/11/24 13:06 Coding Level of Care Code Est Pt Level 4 (09759) Complex EM visit Add On G2211 Diagnoses HTN (hypertension) I10 Hyperlipemia E78.5 Diabetes E11.9 Insomnia G47.00 Diabetic polyneuropathy E11.42 Macular degeneration H35.30 CKD stage 3 due to type 2 diabetes mellitus E11.22; N18.30 Assessment & Plan Assessment & Plan (1) HTN (hypertension): Code(s): I10 - Essential (primary) hypertension Category: Medical Plan: Controlled IV check. Continue amlodipine and lisinopril. Recheck potassium given borderline result at last visit (2) Hyperlipemia: Code(s): E78.5 - Hyperlipidemia, unspecified Category: Medical Plan: Lipid panel ordered. Continue statin (3) Diabetes: Code(s): E11.9 - Type 2 diabetes mellitus without complications Category: Medical Plan: Controlled with last hemoglobin A1c. Repeat today. Continue current therapies. Diabetic diet. Continue following with Ophthalmology (4) Insomnia: Code(s): G47.00 - Insomnia, unspecified Category: Medical Plan: Stable. Continue temazepam (5) Diabetic polyneuropathy: Code(s): E11.42 - Type 2 diabetes mellitus with diabetic polyneuropathy Category: Medical Plan: Stable, not currently bothersome. We will continue monitoring (6) Macular degeneration: Code(s): H35.30 - Unspecified macular degeneration Category: Medical Plan: Continue following with Ophthalmology (7) CKD stage 3 due to type 2 diabetes mellitus: Code(s): E11.22 - Type 2 diabetes mellitus with diabetic chronic kidney disease; N18.30 - Chronic kidney disease, stage 3 unspecified Category: Medical Plan Follow-up in 4 months with labs completed following this today Orders: Orders Microalbumin, Random (w Creat) Today E11.9 - Type 2 diabetes mellitus without complications, E78.5 - Hyperlipidemia, unspecified, I10 - Essential (primary) hypertension Basic Metabolic Panel Today E11.9 - Type 2 diabetes mellitus without complications, E78.5 - Hyperlipidemia, unspecified, I10 - Essential (primary) hypertension Hemoglobin A1c Today E11.9 - Type 2 diabetes mellitus without complications, E78.5 - Hyperlipidemia, unspecified, I10 - Essential (primary) hypertension Lipid Panel Today E11.9 - Type 2 diabetes mellitus without complications, E78.5 - Hyperlipidemia, unspecified, I10 - Essential (primary) hypertension Liver Panel Today E11.9 - Type 2 diabetes mellitus without complications, E78.5 - Hyperlipidemia, unspecified, I10 - Essential (primary) hypertension
[2024-12-11 13:04] VITALS: BP 146/56; PULSE 43; RESP 16; TEMP 36.7; O2SAT 99; BMI 26.7
--- OUTSIDE RECORDS SUMMARY | 2024-12-11 13:42 | XMS_ITS | Patient Health Record ---
Author Organization [facility] Address [address] [place] [address] Care Team Providers Care Quality Manager Name Role Phone Katia (RETIRED) Campbell RUTH Primary Care Provide r Unavailable Param Corcoran Jr Unavailable Soni Hrenandez Unavailable Unavailable Reason For Referral No Information Medications Medication SIG (Take, Route, Frequency, Duration) Notes Start Date End Date Status glipiZIDE 10 MG 1 tablet Orally twic e a day Active metFORMIN HCl 1000 MG 1 tablet with meal s Orally Twice a day Active PreserVision AREDS 1 tablet Orally 1-2 tablets a day Active Azithromycin 250 MG as directed Orally O nce a day Active Pravastatin Sodium 40 MG 1 tablet Orally Once a day Active Aspirin 81 MG 1 tablet Orally Once a day Active Vitamin D 1000 UNIT 1 capsule Orally Onc e a day Active amLODIPine Besylate 10 MG 1 tablet Orally Once a day Active Immunizations Vaccine Route Administration Date Status Comme nts Flu vaccine no Preserv 3 and > Unknown 12/23/2014 Administered Flu vaccine no Preserv 3 and > IM Intramuscular 04/18/2016 Administered Influenza Unknown 01/22/2017 Administered Problems Problem Type SNOMED Code ICD Code Onset Dates Problem Status W/U Status Risk Notes Problem 275218698 Colon cancer screening (Z12.11) Active confirmed Problem 750567908 unit tender current use of aspirin (Z79.82) Active confirmed Problem 827636564 History of adenomatous polyp of colon (Z86.010) Active confirmed Problem 19491791 Heme + stool (R19.5) Active confirmed Plan Of Treatment Pending Test Test Name Order Date GI BIOPSY 06/09/2017 Future Test Test Name Order Date COLONOSCOPY 03/12/2015 COLONOSCOPY 05/19/2017 Insurance Providers Payer Name Payer Address Payer Phone Subscriber Number Group Number Insured Name Patient Relationship to Insured Coverage Start Date Coverage End Date MEDICARE OF [place] [address] [place] [address] [id number] PARENTMOLINA Self - patient is the insured [employer] CLAIMS [address] [place] [address] [phone] [id number] MOLINA RUEDA Self - patient is the insured Medical (General) History Medical History History ICD Code NIDDM HTN Stroke-2014--right arm weakness---no res idual Colonoscopy in 06/2015--small tubular adenomas removed--he reports a colonoscopy prior to that as well Denies OR,Lung disease,renal disease Surgical History Surgery Date(Month/Year) Foot surgery for bone spurs 2017 Right hip replacement > 20 yrs ago Left index finger from a saw Hemorrhoid surgery 2013 Dr. Vargas
--- OUTSIDE RECORDS SUMMARY | 2024-12-11 13:42 | XMS_ITS | Patient Health Record ---
Author Organization [facility] Address [address] [facility] [place] [address] Care Team Providers Care Post Form Remover Name Role Phone Ruvalcaba, [place] Primary Care Provider Taty Rooney Unavailable [phone] Jordan Carlson Unavailable [phone] Allergies No Known Allergies Results Component Value [...] Twice a day to affected skin and nail; Duration: 30 days 08/22/2017 Active metFORMIN HCl 1000 MG 1 tablet with meal s Orally Twice a day Active PreserVision AREDS A ctive Immunizations Vaccine Route Administration Date Status Comme nts Influenza Unknown 03/09/2016 Administered Influenza Unknown 02/06/2017 Administered Influenza Unknown 01/09/2018 Administered Influenza Unknown 01/29/2021 Administered Pneumococcal Unknown 03/09/2016 Administered COVID-19 Pfizer BioNTech Vaccine Unknown 06/02/2020 Administered COVID-19 Pfizer BioNTech Vaccine Unknown 01/25/2021 Administered 1st 06/02/20 2nd 06/23/20 Social History Tobacco Use: Social History Observation [...] Active confirmed Problem Chronic ulcer of foot (415887562) Non-pressure chronic ulcer of other part of left foot with fat layer exposed (L97.522) Active confirmed Problem Localized, primary osteoarthritis of the ankle and/or foot (181696360) Primary osteoarthritis, right ankle and foot (M19.071) Active confirmed Problem Localized, primary osteoarthritis of the ankle and/or foot (082882103) Primary osteoarthritis, left ankle and foot (M19.072) Active confirmed Problem Non-pressure chronic ulcer of other part of left foot limited to breakdown of skin (L97.521) Active confirmed Problem Non-pressure chronic ulcer of other part of right foot limited to breakdown of skin (L97.511) Active confirmed Problem Acquired hammer toe of right foot (0908974178816525 ) Other hammer toe(s) (acquired), right foot (M20.41) Active confirmed Problem Acquired hammer toe of left foot (7474722698657637 ) Other hammer toe(s) (acquired), left foot (M20.42) Active confirmed Problem Polyneuropathy due to type 2 diabetes mellitus (428836518) Type 2 diabetes mellitus with diabetic polyneuropathy (E11.42) Active confirmed Problem Polyneuropathy due to diabetes mellitus type I (512370440) Type 1 diabetes mellitus with diabetic polyneuropathy (E10.42) Active confirmed Vital Signs Blood pressure diastolic 65 mm Hg 08/29/2024 Height 6 ft in 08/29/2024 Blood pressure systolic 115 mm Hg 08/29/2024 Weight 195 lbs 08/29/2024 BMI 26.44 kg/m2 08/29/2024 Procedures Procedure Date Ordered Date Performed Result Body Sit e 53430-FDSSBYO NAIL, 6 OR MORE 05/08/2024 N/A 06978-UTGP SKIN LESIONS, OVER 4 05/08/2024 N/A Encounters Encounter Location Date Provider Diagnosis [address] [address] 01/10/2024 Jordan Carlson Ingrowing nail L60.0 ; Type 2 diabetes mellitus with diabetic polyneuropathy E11.42 ; Tinea unguium B35.1 ; Pain in right toe(s) M79.674 ; Pain in left toe(s) M79.675 ; Other hammer toe(s) (acquired), left foot M20.42 and Other hammer toe(s) (acquired), right foot M20.[address] [address] 05/08/2024 Taty Cardona Other hammer toe(s) (acquired), right foot M20.41 ; Other hammer toe(s) (acquired), left foot M20.42 ; Type 2 diabetes mellitus with diabetic polyneuropathy E11.42 and Tinea unguium B35.[address] [address] 08/29/2024 Taty Cardona Type 2 diabetes mellitus with diabetic polyneuropathy E11.42 and Tinea unguium B35.[address] [place] [address] 07/08/2024 Taty Cardona Other hammer toe(s) (acquired), [...] X ray : Foot, left 3V 12/14/2022 12799-PIGPIAB NAIL, 6 OR MORE 05/08/2024 35155-YACGMSR NAIL, 6 OR MORE 02/24/2015 46499-AKWDKOD NAIL, 1-5 10/28/2016 30275-THOENBF NAIL, 1-5 04/28/2017 50526-ORNYWIQ NAIL, 1-5 08/22/2017 67682-Szlnxayq Plate 10/28/2016 72319-Wiwqcobu Plate 03/10/2015 40394-Jzijhkfc Plate 01/09/2018 29656- Debride <25 sq cm 01/23/2018 38051- Debride <25 sq cm 03/10/2015 55825- Debride <25 sq cm 02/24/2015 07583-HLKFCRB SKIN/TISSUE 11/10/2020 88384-UMPR SKIN LESIONS, OVER 4 12/23/19 21 07086-NRRG SKIN LESIONS, OVER 4 06/23/19 22 23507-HKSK SKIN LESIONS, OVER 4 05/08/19 25 21377-NOQE SKIN LESIONS, OVER 4 07/25/19 19 89560-DHBU SKIN LESIONS, OVER 4 02/13/20 19 70861-BRWL SKIN LESIONS, OVER 4 11/11/19 21 78460-XIXJ SKIN LESIONS, OVER 4 04/28/19 18 10905-PCAW SKIN LESIONS, 2 TO 4 08/23/19 18 26626-XRUZ SKIN LESIONS, 2 TO 4 02/25/20 15 72012-VBOA SKIN LESIONS, 2 TO 4 10/29/19 17 87692-JAJC SKIN LESIONS, 2 TO 4 01/10/20 18 54950-AKVO NAIL(S) 08/22/2017 71291-APZM NAIL(S) 04/28/2017 81314-VGPL NAIL(S) 10/28/2016 R6252-CXRNRAHT DYSTROPHIC NAILS ANY # Z6972-JPVQXIVN DYSTROPHIC NAILS ANY # P4097-DITGJTLW DYSTROPHIC NAILS ANY # S4632-ETRUETOP DYSTROPHIC NAILS ANY # I6932-AUCNPBXE DYSTROPHIC NAILS ANY # V4413-CNPJQOOU DYSTROPHIC NAILS ANY # Next Appt Details Provider Name:Taty Elisabeth grossman, 01/02/2025 02:30:00 PM, [address] [facility], [place], [address], Insurance Providers Payer Name Payer Address Payer Phone Subscriber Number Group Number Insured Name Patient Relationship to Insured Coverage Start Date Coverage End Date Medicare National Govt Svcs Inc [address] [place] [address] [id number] Parent, Ari Self - patient is the insured [employer] [facility] [address] [place] [address] [phone] [id number] ParentAri Self - patient is the insured Medical (General) History Medical History History ICD Code Back,Hip,and Knee pain type II diabetes Joint implants/screws Surgical History Surgery Date(Month/Year) right hip replacement 30 years ago Hospitalization History Reason Date(Month/Year) [facility] 11/2020 Colonoscopy 05/2017
--- OUTSIDE RECORDS SUMMARY | 2024-12-11 13:42 | XMS_ITS | Clinical Summary ---
Author Organization [facility] Address [address] [place] [address] Care Team Providers Care Cryptologic Linguist Name Role Phone Unavailable Primary Care Provider [...] Vaccine (1 - 2023-2 5 season) 2023 Depression Screening 04/24/2024 Influenza Vaccine (#1) 2024 HIB Vaccines Aged Out No longer [...]
== END 2024-12-11 13:28 | disposition home or self-care (01) ==
LOC: HO.HMCHD 12:51
PROVIDERS: PCP Physician Assistant; Visit Provider Physician Assistant
DX: I10 Essential (primary) hypertension (principal); E78.5 Hyperlipidemia, unspecified; E11.42 Type 2 diabetes mellitus with diabetic polyneuropathy; G47.00 Insomnia, unspecified; H35.30 Unspecified macular degeneration; E11.22 Type 2 diabetes mellitus with diabetic chronic kidney disease; N18.30 Chronic kidney disease, stage 3 unspecified

== ENCOUNTER → 2024-12-11 12:51 | Outpatient (BNVA) | payer MEDICARE, SELFPAY | PROVIDERS: PCP Physician Assistant; Visit Provider Physician Assistant | DX: I12.9 Hypertensive chronic kidney disease with stage 1 through stage 4 chronic kidney disease, or unspecified chronic kidney disease (principal); E11.22 Type 2 diabetes mellitus with diabetic chronic kidney disease; N18.30 Chronic kidney disease, stage 3 unspecified; E11.42 Type 2 diabetes mellitus with diabetic polyneuropathy; G47.00 Insomnia, unspecified; E78.5 Hyperlipidemia, unspecified; H35.30 Unspecified macular degeneration; Z79.84 Long term (current) use of oral hypoglycemic drugs; Z79.899 Other long term (current) drug therapy | CPT/HCPCS: 99212 ==

== ENCOUNTER 2024-12-12 06:25 | Outpatient (REF) | payer MEDICARE, SELFPAY ==
--- OUTSIDE RECORDS SUMMARY | 2024-05-24 06:00 | XMS_ITS ---
Author Name [facility] [place] [facility] [place] Address [address] [place] [id number] Care Team Providers Care Managed Services Consultant Name Role Phone BRANDI MIRANDA Primary Care Provider Unavailabl e Insurance Providers: All historical and current Section Date Range: From patient's date of to the date document was created. This section includes the names of all active insurance providers for the patient. Insurance Provider Type of Coverage Plan Name Start of Policy Coverage End of Policy Coverage Group Number Member ID Insurance Provider's Telephone Number Policy Manjarrez's Name Patient's Relationship to Policy Manjarrez [place] MED[place] SUPPLEMEN [employer] [facility] Dec 23, 2010 [id number] [phone] PETAR RUEDA PATIENT MEDICARE (WNR) MEDICARE (M) PART B Dec 23, 2010 PART B [id number] PETAR RUEDA PATIENT MEDICARE (WNR) MEDICARE (M) PART A Dec 24, 2007 PART A [id number] [phone] PETAR RUEDA PATIENT Selected Encounter This section includes the information on record at [place] for the Encounter. Date/Time Encounter Type Encounter Description Reason Provider Source May 24, 2024 10:00 AM HEARING AID FITTING/CHECKIN G AUDIOLOGY ICD-10-CM H90.3 Sensorineural hearing loss, bilateral SORAIDA MENDIETA Encounter Template Text not used by [place] Assessments - Encounter Diagnoses This section includes the primary and secondary diagnoses documented for the Encounter. Date/Time Primary/Secondary Diagnosis Diagnosis Name Provider Source May 24, 2024 10:47 AM PRIMARY Sensorineural hearing loss, bilateral SORAIDA MENDIETA [facility] May 24, 2024 10:47 AM SECONDARY Encounter for fitting and adjustment of hearing aid SORAIDA MENDIETA [facility] Plan of Treatment: Future Appointments (+ 6 months) and Future Tests (+/- 45 days) The Plan of Treatment section includes future care activities for the patient from all [place] [facility]. This section includes future appointments and future orders which are active, pending or scheduled. Future Appointments This section includes appointments that were scheduled to occur 6 months from the date of the Encounter, up to a maximum of 20 appointments. The data comes from all [facility]. Appointment Date/Time Appointment Type Appointme nt Facility Name Jun 11, 2024 08:30 AM AMBULATORY - MEDICINE [facility] Jun 11, 2024 09:30 AM AMBULATORY - MEDICINE [facility] Jun 19, 2024 02:00 PM [facility] Jul 09, 2024 01:30 PM [facility] Nov 04, 2024 03:30 PM AM[facility]UL[facility] - MEDICINE [facility] Active, Pending, and Scheduled Orders This section includes a listing of several types of active, pending, and scheduled orders, including clinic medications orders, diagnostic test orders, procedure orders and consult orders; where the start date of the order is 45 days before the date of the Encounter or 45 days after the date of theEncounter. The data comes from all [facility]. Test Date/Time Test Type Test Details Facility Name Jun 03, 2024 12:00 AM Laboratory - Chemi stry Order LIPID PANEL, NON FASTING BLOOD (SST-SERUM) [facility] Jun 03, 2024 12:00 AM Laboratory - Chemi stry Order LIVER FUNCTION BLOOD (SST-SERUM) [facility] Jun 03, 2024 12:00 AM Laboratory - Chemi stry Order CBC AND DIFF (AUTO) BLOOD (LAV-BLOOD) [facility] Jun 03, 2024 12:00 AM Laboratory - Chemi stry Order TSH BLOOD (SST-SERUM) [facility] Lab Results: +/- 30 days of the encounter This section includes the Chemistry and Hematology Lab Results on record with [place] for the patient. Radiology Reports and Pathology Reports are provided separately, in subsequent sections. Lab Results This section contains the Chemistry/Hematology Results that were resulted 30 days before or 30 daysafter the date of the Encounter. Date/Time Source Result Type Result - Unit Interpretation Reference Range Specimen Type Comment Jun 03, 2024 07:31 AM [place] HEMOGLOBIN A1C PANEL BLOOD Specimen T ype: BLOOD Comment: Values obtained from A1C measurements can vary. For atypical A1C assays, a reported value of 7.0 could actually be between 6.72 and 7.28 if measured by a reference method. A reported value of 9.0 could actually be between 8.73 and 9.27. Ref: http://www.ngsp .org/CAPdata.as p Ordering Provider: ALEKSEY MOTA Report Released Date/Time: Apr 19, 2024 08:35 AM Reporting Lab: [address] [address] Performing Lab: [address] [address] HEMOGLOBIN A1C 8.3 H 4.0-5.6 Jun 03, 2024 07:31 AM [place] CREATININE (eGFR 2020) SERUM Specimen Type: SERUM No comment entered. Ordering Provider: ALEKSEY MOTA Report Released Date/Time: Apr 19, 2024 08:35 AM Reporting Lab: [address] [address] Performing Lab: [address] [address] CREATININE, Serum 1.40 mg/dL 0.50-1.40 eGFR(CKD-EPI 2020) 50 mL/min L >60 Social History: Smoking Status (Most current) and Tobacco Use (All prior to encounter date) This section includes the most current, and the historical, smoking and tobacco- related health factors from the [place] facility where the Encounter took place. Current Smoking Status This section includes the most current smoking, or tobacco-related health factor, from the [place] facility where the Encounter took place. Date/Time Current Smoking Status Comment Anabell ity Aug 17, 2023 10:39 AM [facility]-TOBACCO FORMER USER [facility] Tobacco Use History This section includes a history of the smoking, or tobacco-related health factors, that were collected on or before the date of the Encounter. The data comes from the [place] facility where the Encounter took place. Date/Time Smoking Status/Tobacco Use Comment F acility Aug 17, 2023 10:39 AM VA-TOBACCO QUIT 15 YRS OR MORE [facility] Aug 15, 2022 01:04 PM VA-TOBACCO FORMER USER [facility] Aug 15, 2022 01:04 PM VA-TOBACCO QUIT 15 YRS OR MORE [facility] Aug 17, 2021 02:41 PM [place]TO[place]ACCO FOR[place] [facility] [place] [facility] Aug 17, 2021 02:41 PM VA-TOBACCO QUIT 15 YRS OR MORE [facility] Encounter Notes: All associated encounter notes This section contains the clinical notes associated to the Encounter. Date/Time Encounter Note(s) Provider Source May 24, 2024 07:34 AM AUDIOLOGY E & M NOTE: LOCAL TITLE: AUDIOLOGY CLINIC STANDARD TITLE: AUDIOLOGY E & M NOTE DATE OF NOTE: MAY 24, 2024@07:34 ENTRY DATE: MAY 24, 2024@07:34:19 AUTHOR: NILDA MENDIETA COSIGNER: URGENCY: STATUS: COMPLETED AUDIOLOGY CLINIC Has ADDENDA Dx CODE: H90.3-Sensorineural Hearing Loss, Bilateral APPOINTMENT TYPE: Hearing Re-Evaluation and Hearing Aid Selection BACKGROUND/HISTORY: was seen 05/24/24 for a hearing re-evaluation and hearing aid selection appointment, unaccompanied. He was fit with [employer] BTEs on 01/11/18. He is eligible for new [facility] aids through the [facility] due to the age of the current devices. His last hearing evaluation was on 12/06/17 and he believes his hearing has declined since then. He denies concerns of tinnitus or vertigo. ASSESMENT: Results of today's testing are as follows: Otoscopy was WNL bilaterally. Normal tympanograms obtained bilaterally. 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 SRT WORD RECOGNITION (Recorded [place] [facility] 04/25 Word List) Right 50dBHL 56% @ 90dBHL/40dBm Left 45dBHL 40% @ 90dBHL/40dBm No significant changes were found when compared to the 12/06/17 audiological evaluation. HEARING AID PROGRAMMING: Both hearing aids were cleaned and checked, and found to be in good working order. Connected aids to [facility] and adjusted to today's test results. HEARING AID SELECTION: Different hearing aid options were discussed. He is interested in technology similar to his previous hearing aids. Per request a TV streamer was ordered and remote control to start/stop streaming. [employer] BTEs were selected and ordered in [facility]. Impressions were taken without incident and with 's verbal consent for canal lock earmolds. EDUCATION/COUNSELING: The patient was counseled re: today's hearing test results. He demonstrated satisfactory understanding of the education and plan, and was given the opportunity to ask questions throughout today's visit. PLAN: 1. RTC on 06/19/24 at 2PM for 60 minute hearing aid fitting appointment. 2. Hearing re-evaluation in 3-5 years, or sooner if change in hearing occurs. * Patient Education Education provided on the following topics: Hearing test results Education provided to: P Response to Education: VU Nathan Patient P Family F Significant Other SO Verbalizes Understanding VU Returns Demonstration RD Performs Independently PI Lacks Comprehension LC Refused Education RE Not Applicable NA * /lavon/ NILDA MENDIETA STAFF ADMINISTRATION SPECIALIST Signed: 05/24/2024 10:47 Receipt Acknowledged By: 05/24/2024 11:38 /lavon/ BRENNA WATKINS ADVANCED STITCHDOWN TOE FORMER 06/06/2024 ADDENDUM STATUS: COMPLETED Hearing aids, TV Streamer and Remote Control received and certified, upcoming appointment scheduled on 06/19/2024. /lavon/ HARRISON DAVALOS [facility] [employer] Blower Signed: 06/06/2024 07:33 NILDA [facility]END[facility]
--- OUTSIDE RECORDS SUMMARY | 2024-12-12 06:27 | XMS_ITS | Patient Health Record ---
Author Organization [facility] Address [address] [place] [address] Care Team Providers Care Platform Material Handling Supervisor Name Role Phone Katia (RETIRED) Campbell RUTH Primary Care Provide r Unavailable Param Corcoran Jr Unavailable [phone] Soni Hernandez Unavailable Unavailable Reason For Referral No Information [...] Problem Status W/U Status Risk Notes Problem 704847794 Colon cancer screening (Z12.11) Active confirmed Problem 055931677 termite control representative current use of aspirin (Z79.82) Active confirmed Problem [id number] History of adenomatous polyp of colon (Z86.010) Active confirmed Problem [id number] Heme + stool (R19.5) Active confirmed Plan Of Treatment Pending Test Test Name Order Date GI BIOPSY 06/09/2017 Future Test Test Name Order Date COLONOSCOPY 03/12/2015 COLONOSCOPY 05/19/2017 Insurance Providers Payer Name Payer Address Payer Phone Subscriber Number Group Number Insured Name Patient Relationship to Insured Coverage Start Date Coverage End Date MEDICARE OF [place] [address] [place] [address] [id number] PARENTMOLINA Self - patient is the insured MEDEX ATTN CLAIMS [address] [place] [address] [id number] MOLINA RUEDA Self - patient is the insured Medical (General) History Medical History History ICD Code NIDDM HTN Stroke-2014--right arm weakness---no res idual Colonoscopy in 06/2015--small tubular adenomas removed--he reports a colonoscopy prior to that as well Denies VT,Lung disease,renal disease Surgical History Surgery Date(Month/Year) Foot surgery for bone spurs 2017 Right hip replacement > 20 yrs ago Left index finger from a saw Hemorrhoid surgery 2013 Dr. Vargas
--- OUTSIDE RECORDS SUMMARY | 2024-12-12 06:27 | XMS_ITS | Clinical Summary ---
Author Organization [facility] Address [address] [place] [address] Care Team Providers Care Moving Worker Name Role Phone Unavailable Primary Care Provider [...]
[2024-12-12 07:46] LABS: Microalbum/Creatinine Ratio Ur 143.5 ug/mg cr (<30)
[2024-12-12 07:48] LABS: Alanine Aminotransferase 16 U/L (0-40); Albumin Level 4.1 g/dL (3.5-5.0); Alkaline Phosphatase 61 U/L (39-117); Anion Gap 12 (12-20); Aspartate Amino Transferase 23 U/L (5-37); Blood Urea Nitrogen 25 mg/dL (9-16); Calcium 9.4 mg/dL (8.4-10.2); Carbon Dioxide 26 mmol/L (22-29); Chloride 106 mmol/L (96-108); Cholesterol 152 mg/dL (<200); Estimated Glomerular Filt Rate 48; HDL Cholesterol 61 mg/dL (>40); Potassium 5.3 mmol/L (3.3-5.1); Sodium 139 mmol/L (135-145); Total Protein 6.7 g/dL (6.5-8.0); Triglycerides 61 mg/dL (<150)
[2024-12-12 07:59] LABS: Hemoglobin A1C 158.4543 umol/L; Total Hemoglobin (HGBA1C) 3370.0733 umol/L
== END 2024-12-12 06:26 | disposition home or self-care (01) ==
LOC: HO.LAB 06:25
PROVIDERS: PCP Physician Assistant; Visit Provider Physician Assistant
DX: I10 Essential (primary) hypertension (principal); E11.9 Type 2 diabetes mellitus without complications; E78.5 Hyperlipidemia, unspecified
CPT/HCPCS: 36415; 80048; 80061; 80076; 82043; 82570; 83036

== ENCOUNTER 2025-02-13 14:51 | Emergency (ER) | payer MEDICARE, SELFPAY ==
--- NOTE | ~2025-02-13 | XR_ITS ---
EXAMINATION: XR RIBS, LEFT CLINICAL INFORMATION: Left lower rib pain. No trauma. COMPARISON: Chest radiograph 07/29/2013. TECHNIQUE: PA chest, and 3 views of the left ribs were obtained. FINDINGS: Lungs are clear. No consolidation, pneumothorax, or pleural effusion. The cardiomediastinal silhouette and pulmonary vasculature are normal. Aortic mural calcification. Osseous structures are unremarkable. Ribs appear intact. No acute fractures or rib lesions are identified. There are degenerative changes in the spine and in both shoulder joints. XR/XR ribs LT min 3V w CXR1V IMPRESSION: 1. No acute findings of the left ribs. 2. The lungs appear clear. Electronically signed by: Fermín Munoz MD 02/13/2025 04:52 PM EDT
--- NOTE | ~2025-02-13 | CT_ITS ---
CLINICAL HISTORY: left flank pain, renal colic vs MSK pain arthritis CT abdomen and pelvis without contrast Comparison: None provided Findings: Atelectasis. Cardiomegaly without significant pericardial effusion. Coronary artery calcifications. Distended gallbladder. Bilateral hypodense/intermediate dense renal cysts. Nonobstructive scattered subcentimeter right renal calculi measuring no more than 3 mm. Possible tiny left lower pole hemorrhagic renal cyst measuring 7 mm. This may be further evaluated with ultrasound. No bowel obstruction, pneumoperitoneum, or pneumatosis. Fat containing umbilical hernia. Fat containing inguinal hernias. Heterogeneous prostatomegaly with calcifications. Scattered colonic diverticulosis without diverticulitis or colitis. Normal appendix. Mildly distended bladder with mural thickening, nonspecific. Tiny bilateral pulmonary nodules measuring no more than 3 mm. Per Fleischner criteria: Low-risk patients: No routine follow-up required. High-risk patients: Optional CT at 12 months. Emphysema. Osteopenia with diffuse multilevel spondylosis. Diffuse atheromatous plaque disease throughout the aorta and branch vessels, without aneurysmal dilatation. Right total hip arthroplasty. Osteolysis noted in the medial right iliac bone/acetabulum with a large soft tissue circumscribed masslike focus protruding into the right posterior pelvis, measuring 6.1 x 5.1 cm. Comparison with priors if available and/or tissue sampling may be helpful. IMPRESSION: 1. Nonobstructive scattered subcentimeter right renal calculi measuring no more than 3 mm. 2. Additional findings described, please see above. This document has been electronically signed by: Sheldon Botello MD on 02/13/2025 19:15:55
--- NOTE | ~2025-02-13 | US_ITS ---
CLINICAL HISTORY: concern hemorrgahic cyst left side, --- Additional Notes or Special Instructions: here with left flank pain US Renal Comparison: CT/REG/SR - CT ABDOMEN PELVIS WO IV CON - 02/13/25 17:58 EDT Findings: Right kidney not imaged. Left kidney normal size and echotexture, 11.2 cm length. Left lower pole simple appearing cyst measuring 8.3 x 5 x 5.9 cm. The previously mention subcentimeter possible hemorrhagic cyst in the left kidney is not seen on current exam. If clinical concern persists, dynamic renal MRI protocol may be helpful. No hydronephrosis. Bladder not imaged. IMPRESSION: No hydronephrosis. This document has been electronically signed by: Sheldon Botello MD on 02/13/2025 20:21:54
[2025-02-13 15:01] VITALS: BP 201/85; PULSE 70; RESP 18; TEMP 36.2; O2SAT 96; BMI 26.2
--- NOTE | 2025-02-13 15:04 | ED.GENADULT ---
HPI - General Adult General Chief complaint: Abdominal Pain Stated complaint: L side pain 3 days Time Seen by Provider: 02/13/25 17:05 Source: patient Limitations: no limitations History of Present Illness ED Provider: Leola La PA-C HPI narrative: 84-year-old male with a history of hypertension, hyperlipidemia, diabetes with neuropathy, chronic kidney disease, who presents with left flank pain times 3-4 days. Pain over mid to lower left flank with radiation to left lower quadrant at times. Pain worse with movement and palpation of the abdomen/flank. Denies history of kidney stones, dysuria or obvious hematuria. Denies nausea vomiting or diarrhea. Denies new activity or heavy lifting where he could have strained his abdominal wall. Related Data Home Medications ?Medication ?Instructions ?Recorded ?Confirmed amlodipine 10 mg tablet 10 mg PO DAILY 04/14/22 cholecalciferol (vitamin D3) 10 10 mcg PO DAILY 04/14/22 mcg (400 unit) capsule pravastatin 40 mg tablet 40 mg PO DAILY 04/14/22 vitamins A,C,Y-uyxt-ryaogr 4,296 1 cap PO BID 04/14/22 mcg-226 mg-90 mg capsule (PreserVision AREDS) aspirin 81 mg tablet,delayed 81 mg PO DAILY 08/23/24 release glipizide 2.5 mg tablet 2.5 mg PO DAILY 09/30/24 sitagliptin 50 mg tablet 50 mg PO DAILY 09/30/24 metformin 1,000 mg tablet 1,000 mg PO ONCE 12/11/24 Previous Rx's ?Medication ?Instructions ?Recorded temazepam 15 mg capsule 15 mg PO BEDTIME PRN sleep #60 caps 07/19/24 methocarbamol 750 mg tablet 750 mg PO Q8H PRN pain, moderate 02/13/25 #15 tabs Allergies Allergy/AdvReac Type Severity Reaction Status Date / Time No Known Allergies (No Known Allergy Verified 02/13/25 15:07 Allergies*) Review of Systems Review of Systems: Yes all other systems are reviewed and are negative Constitutional: Constitutional: Denies fatigue and Denies fever(s) Cardiovascular: Cardiovascular: Denies chest pain and Denies dyspnea Respiratory: Respiratory: Denies dyspnea Gastrointestinal: Gastrointestinal: Reports abdominal pain, Denies constipation, Denies diarrhea, Denies nausea and Denies vomiting Genitourinary: Genitourinary: Denies hematuria, Denies dysuria and Reports flank pain Musculoskeletal: Musculoskeletal: Reports back pain Endocrine: Endocrine: Denies fatigue PMFSH Past Medical History Attestation statement: The following information was validated with the patient. Medical History (Updated 02/14/25 @ 00:00 by Shannen Mccormick) Insomnia Diabetic polyneuropathy Traumatic closed nondisplaced fracture of orbit Nasal bone fracture HTN (hypertension) CKD stage 3 due to type 2 diabetes mellitus Macular degeneration Diabetes Surgical History History of colonoscopy (~06/09/17) H/O Achilles tendon repair (~2015) History of total right hip replacement (~07/29/95) Family History Family History Mother Diabetes 1.5, managed as type 2 Father No problems noted. Social History Social History Housing: House Patient Tobacco Use Status: Former Tobacco user Smoked in Last 30 Days: No e-Cigarette/Vaping Use: Former Use Use of substances other than those prescribed or required for medical reasons: No Advance Directives: No Advance Directives Information Provided: Yes service: Yes Current occupational status: retired Cognitive needs: No Hearing needs: Yes (both hearing aids) Vision needs: Yes (rx glasses) Physical Exam ED Vital Signs: Vital Signs - 24 hr 02/13/25 15:01 02/13/25 17:17 02/13/25 18:24 Temperature 97.2 F 97.8 F Pulse Rate 70 67 58 Respiratory Rate 18 20 18 Blood Pressure 201/85 H 172/75 H 150/59 H Pulse Oximetry 96 93 94 Oxygen Delivery Method Room Air Room Air Room Air BMI result Body Mass Index 26.2 Const Other: Alert Orientation/consciousness: patient oriented x3 Resp Effort & Inspection: normal respiratory effort Cardio Other: Normal peripheral perfusion GI Other: Abdomen is soft, nontender no guarding Back/Spine/Pelvis Other: Some degree of palpable pain over left lateral flank, mid to lower region, pain elicited with position change while seated in the bed, and movement of the torso, no CVA tenderness Skin Other: Warm dry no rash Neuro Other: Patient is hard of hearing, having to speak loudly to communicate with the him General: patient oriented x3, no focal motor deficits and CN's II-XI intact bilaterally Psych Other: Cooperative Course Course Course Narrative: This is an RME: Additional HPI, ROS, PE not included below will be deferred to primary provider. RME assessment and note performed by: Radha Zavala PA-C This is a [id number]-male, with a hx of hyperlipidemia, hypertension, type 2 diabetes complicated by diabetic polyneuropathy, and insomnia with complaints of left flank pain x 3-4 days. No injury or trauma. Reports that 2 weeks ago he was seen by a kidney specialist and was told he needed to come back in 3 months. No overlying skin changes. Plan: Labs, EKG, UA, further ER evaluation needed. Reevaluation(s) Reevaluation #1: Patient's pain improved with Tylenol and Valium, we will send with a muscle relaxant, an tfgh-buo-osybohg Tylenol dosing. The patient's spouse is at bedside, I let her know that we are going to obtain a renal ultrasound given there was concern for potential hemorrhagic cyst on the left side. Reevaluation #2: Toward the end of the patient's assessment, while his renal ultrasound was pending, the patient's granddaughter had come to see him in the emergency room. Once his studies were complete, I was reporting findings, and discussed that his pain was musculoskeletal in nature, and that he was found to have arthritic changes within the spine. The granddaughter was very displeased with these findings, she did not believe what I was telling her. She states that she called the emergency department 3 times, spoke with 3 different people, and was told 3 different things. I relayed to the granddaughter that I was not a part of any of these conversations, and that I was here to report objective findings from the 3 imaging studies that were obtained today. She is becoming quite hostile, she will not allow me to explain relevant diagnostic findings, she is dismissing me and demanding that we discharge the patient and that they will take him elsewhere for assessment. She does not believe that the patient has arthritis. I took it upon myself to go through every imaging study that the patient has had throughout the years, he was found to have extensive arthritis, on multiple imaging modalities, I have included these findings within my extensive discharge instructions. The patient's granddaughter is also demanding that a disc be generated from Radiology, of all studies that were performed overnight. Medications Administered Discontinued Medications Generic Name Dose Route Start Last Admin Trade Name Valeri PRN Reason Stop Dose Admin Diazepam 5 mg 02/13/25 17:15 02/13/25 17:46 Diazepam 10 Mg/2 Ml Cartridge IVPUSH 02/13/25 17:16 5 mg STAT STA Administration Acetaminophen 1,000 mg in 100 mls @ 400 mls/hr 02/13/25 19:42 02/13/25 20:18 Ofirmev IV 02/13/25 19:56 Infused ONCE ONE Infusion Medical Decision Making Medical Decision Making MDM Narrative: 84-year-old male with a history of hypertension, hyperlipidemia, diabetes with neuropathy, chronic kidney disease, who presents with left flank pain times 3-4 days. Pain over mid to lower left flank with radiation to left lower quadrant at times. Pain worse with movement and palpation of the abdomen/flank. Denies history of kidney stones, dysuria or obvious hematuria. Denies nausea vomiting or diarrhea. Denies new activity or heavy lifting where he could have strained his abdominal wall. Problem: Age, diabetes, chronic kidney disease History: Per patient I have considered the following differential diagnoses: Musculoskeletal strain, pyelonephritis, UTI, renal colic, compression fracture, rib fracture , diverticulitis, pancreatitis, ACS Plan: Chest x-ray and screening labs were ordered from triage, there was no evidence of a rib fracture, which I would not expect, he did not sustain trauma. However, his exam was most consistent with musculoskeletal strain/pain, although he denies overuse injury. We still need to collect a urine. Obtaining a CT scan of abdomen pelvis. Doubtful to be renal colic oral pyelonephritis, he has no CVA tenderness, he has no active GI symptoms, he is afebrile, with no urinary complaints. Giving Tylenol and a muscle relaxant for his discomfort. He has no palpable left upper or left lower quadrant pain on exam to suggest pancreatitis or diverticulitis, and again he has no active GI symptoms. LFTs and lipase were also obtained with screening labs and are normal. Atypical presentation for ACS was considered given left-sided symptoms, in the patient does have multiple risk factors for coronary artery disease, troponin EKG obtained. I have independently reviewed the following tests: Labs: No leukocytosis, not anemic, no electrolyte abnormality, creatinine at baseline, troponin 12.9, delta troponin 12.7 ,lipase 41, no elevation in LFTs, urine not infected Chest x-ray: XR/XR ribs LT min 3V w CXR1V IMPRESSION: 1. No acute findings of the left ribs. 2. The lungs appear clear. EKG: Normal sinus rhythm, rate of 67, no ischemic changes no ectopy QTC 407 CT abdomen and pelvis:Comparison: None provided Findings: Atelectasis. Cardiomegaly without significant pericardial effusion. Coronary artery calcifications. Distended gallbladder. Bilateral hypodense/intermediate dense renal cysts. Nonobstructive scattered subcentimeter right renal calculi measuring no more than 3 mm. Possible tiny left lower pole hemorrhagic renal cyst measuring 7 mm. This may be further evaluated with ultrasound. No bowel obstruction, pneumoperitoneum, or pneumatosis. Fat containing umbilical hernia. Fat containing inguinal hernias. Heterogeneous prostatomegaly with calcifications. Scattered colonic diverticulosis without diverticulitis or colitis. Normal appendix. Mildly distended bladder with mural thickening, nonspecific. Tiny bilateral pulmonary nodules measuring no more than 3 mm. Per Fleischner criteria: Low-risk patients: No routine follow-up required. High-risk patients: Optional CT at 12 months. Emphysema. Osteopenia with diffuse multilevel spondylosis. Diffuse atheromatous plaque disease throughout the aorta and branch vessels, without aneurysmal dilatation. Right total hip arthroplasty. Osteolysis noted in the medial right iliac bone/acetabulum with a large soft tissue circumscribed masslike focus protruding into the right posterior pelvis, measuring 6.1 x 5.1 cm. Comparison with priors if available and/or tissue sampling may be helpful. IMPRESSION: 1. Nonobstructive scattered subcentimeter right renal calculi measuring no more than 3 mm. 2. Additional findings described, please see above. Renal ultrasound:Findings: Right kidney not imaged. Left kidney normal size and echotexture, 11.2 cm length. Left lower pole simple appearing cyst measuring 8.3 x 5 x 5.9 cm. The previously mention subcentimeter possible hemorrhagic cyst in the left kidney is not seen on current exam. If clinical concern persists, dynamic renal MRI protocol may be helpful. No hydronephrosis. Bladder not imaged. IMPRESSION: No hydronephrosis. Differential Diagnosis Differential Diagnoses: The differential diagnosis associated with the presentation includes See medical decision-making Admission/Observation Consideration of admission/observation: Escalation of care including admission/observation considered Not applicable Lab Data MDM Lab Attestation statement: I reviewed the patient's lab results. 02/13/25 15:20 02/13/25 15:20 Labs: Lab Results 02/13/25 02/13/25 02/13/25 Range/Units 15:20 17:16 17:36 WBC 10.1 (4.8-10.8) X10*3/uL RBC 4.12 L (4.60-5.80) X10*6/uL Hgb 12.9 L (14.0-18.0) g/dl Hct 40.1 L (42.0-52.0) % MCV 97.3 (80.0-98.0) fL MCH 31.3 (27.0-33.0) pg MCHC 32.2 (31.0-36.0) g/dl RDW 12.5 (11.0-16.0) % Plt Count 236 (160-400) X10*3/uL MPV 11.0 (9.4-12.4) fL Immature Gran % (Auto) 0.3 (0.0-0.4) % Neut % (Auto) 72.0 (45-73) % Lymph % (Auto) 15.7 L (20-40) % [place] % (Auto) 9.4 (2-11) % Eos % (Auto) 2.0 (0-4) % Baso % (Auto) 0.6 (0-2) % Lymph # (Auto) 1.6 (1.2-4.9) X10*3/uL [place] # (Auto) 1.0 (0.1-1.2) X10*3/uL Eos # (Auto) 0.2 (0.0-0.4) X10*3/uL Baso # (Auto) 0.1 (0.0-0.2) X10*3/uL Abs Immat Gran (auto) 0.03 (0.00-0.03) X10*3/uL Absolute Neuts (auto) 7.2 (2.0-8.3) x10*3/uL Absolute Nucleated RBC 0.000 (0.0-0.012) X10*3/uL Nucleated RBC % (auto) 0.0 (0.0-0.2) /100WBC Sodium 142 (135-145) mmol/L Potassium 5.1 (3.3-5.1) mmol/L Chloride 111 H (96-108) mmol/L Carbon Dioxide 25 (22-29) mmol/L Anion Gap 11 L (12-20) BUN 23 H (9-16) mg/dL Creatinine 1.49 H (0.5-1.4) mg/dL Estim Creat Clear Calc 41.9 Estimated GFR 45 Random Glucose 101 (60-115) mg/dL Calcium 9.2 (8.4-10.2) mg/dL Magnesium 1.9 (1.6-2.6) mg/dL Total Bilirubin 0.5 (0.0-1.0) mg/dL Direct Bilirubin 0.2 (0.0-0.5) mg/dL AST 21 (5-37) U/L ALT 14 (0-40) U/L Alkaline Phosphatase 60 (39-117) U/L Troponin I High Sens 12.9 12.7 (<3.5-35.0) ng/L Total Protein 7.0 (6.5-8.0) g/dL Albumin 4.5 (3.5-5.0) g/dL Lipase 41 (8-78) U/L Urine Color Yellow Urine Appearance Clear Urine pH 6.0 (5.0-9.0) Ur Specific [place] 1.015 (1.005-1.025) Urine Protein 100 (2+) H (Neg-Trace) mg/dL Urine Glucose (UA) Negative (Negative) mg/dL Urine Ketones Negative (Negative) mg/dL Urine Blood Negative (Negative) Urine Nitrite Negative (Negative) Ur Leukocyte Esterase Negative (Negative) Urine RBC 0-2 (0-2) /HPF Urine WBC 0-5 (0-5) /HPF Ur Squamous Epith Cells 0-2 (0-2) /HPF Urine Bacteria None Seen (None Seen) Hyaline Casts 0-2 (0-2) /LPF Independent Interpretation I performed an independent interpretation of an: EKG Radiology Impression Discussion of test interpretation with radiology: I have reviewed the radiologist's reading. 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 The CT scan of the abdomen and pelvis revealed extensive degenerative changes of the lumbar spine. In addition, the patient was found to have bilateral renal cysts. Per the CT scan, there was concern for potential hemorrhagic cyst on the left. He in turn received a renal ultrasound of the left side, which confirmed that the cyst is not hemorrhagic, it is a simple cyst. The ultrasound study is a better imaging modality to assess the morphology of renal cysts, it is more specific. . The patient should continue to follow up with the his plate filler, they can track and monitor the progress of the renal cysts. The presence of renal cysts does not cause any form of pain. I believe the pain you are experiencing is secondary to your diffuse arthritis. I reviewed all imaging studies with your family member at bedside, you have been noted to have arthritic changes in the right knee, right ankle, pelvis, lumbar spine, thoracic spine, shoulders: this information was obtained from the imaging studies, that I have reviewed from your assessments here at [facility], throughout the years. Lastly, you were found to have scattered subcentimeter stones in the right kidney. Having stones within the kidney causes no symptoms. It is when the kidney stones migrate into the ureter, that causes pain. Use phic-rky-rycpyfa Tylenol 1000 mg taken every 8 hours for pain. You can also use the muscle relaxant, methocarbamol, as needed for further pain. To note this medication may cause drowsiness, do not drive or operate machinery while taking this medication. Continue to follow up with your primary care provider. They will be kamila to see all the imaging that was obtained today during your ER visit. Prescriptions: New methocarbamol 750 mg tablet 750 mg PO Q8H PRN (Reason: pain, moderate) Qty: 15 0RF No Action temazepam 15 mg capsule 15 mg PO BEDTIME PRN (Reason: sleep) Qty: 60 1RF PreserVision AREDS [id number] ubaj-vi-chje capsule 1 cap PO BID cholecalciferol (vitamin D3) 10 mcg (400 unit) capsule 10 mcg PO DAILY amlodipine 10 mg tablet 10 mg PO DAILY pravastatin 40 mg tablet 40 mg PO DAILY metformin 1,000 mg tablet 1,000 mg PO ONCE aspirin 81 mg tablet,delayed release (DR/EC) 81 mg PO DAILY glipizide 2.5 mg tablet 2.5 mg PO DAILY sitagliptin 50 mg tablet 50 mg PO DAILY Interventions: ED Discharge Assessment Last Done: 02/13/25 23:00 Discharge Date/Time: 02/13/25 23:04 Print Language: [place]
--- NOTE | 2025-02-13 15:09 | ECG_ITS ---
Test Reason : cp Blood Pressure : */* mmHG Vent. Rate : 67 BPM Atrial Rate : 67 BPM P-R Int : 198 ms QRS Dur : 98 ms QT Int : 386 ms P-R-T Axes : * 8 53 degrees QTcB Int : 407 ms Normal sinus rhythm Normal ECG When compared with ECG of 06-Aug-2013 14:57, T wave inversion no longer evident in Inferior leads Referred By: Radha Zavala Electronically Signed By: CATHERINE BLANCO MD
[2025-02-13 15:25] LABS: MANUAL DIFF FLAG NO
[2025-02-13 15:27] LABS: Hematocrit 40.1 % (42.0-52.0); Hemoglobin 12.9 g/dl (14.0-18.0); Imm Gran Abs Auto 0.03 X10*3/uL (0.00-0.03); Imm Gran Pct Auto 0.3 % (0.0-0.4); Lymphocytes Absolute Auto 1.6 X10*3/uL (1.2-4.9); Mean Corpuscular HGB Conc 32.2 g/dl (31.0-36.0); Mean Corpuscular Hemoglobin 31.3 pg (27.0-33.0); Mean Corpuscular Volume 97.3 fL (80.0-98.0); NRBC Abs Auto 0.000 X10*3/uL (0.0-0.012); NRBC Pct Auto 0.0 /100WBC (0.0-0.2); Platelet Count 236 X10*3/uL (160-400); Red Blood Count 4.12 X10*6/uL (4.60-5.80); White Blood Count 10.1 X10*3/uL (4.8-10.8)
[2025-02-13 15:45] LABS: Alanine Aminotransferase 14 U/L (0-40); Albumin Level 4.5 g/dL (3.5-5.0); Alkaline Phosphatase 60 U/L (39-117); Anion Gap 11 (12-20); Aspartate Amino Transferase 21 U/L (5-37); Blood Urea Nitrogen 23 mg/dL (9-16); Calcium 9.2 mg/dL (8.4-10.2); Carbon Dioxide 25 mmol/L (22-29); Chloride 111 mmol/L (96-108); Creatinine Clr Calc Pharmacy 41.9; Estimated Glomerular Filt Rate 45; Lipase 41 U/L (8-78); Magnesium 1.9 mg/dL (1.6-2.6); Potassium 5.1 mmol/L (3.3-5.1); Sodium 142 mmol/L (135-145); Total Protein 7.0 g/dL (6.5-8.0)
[2025-02-13 15:54] LABS: Troponin-I High Sensitivity 12.9 ng/L (<3.5-35.0)
[2025-02-13 17:17] VITALS: BP 172/75; PULSE 67; RESP 20; O2SAT 93
--- NOTE | 2025-02-13 17:39 | MHC.EDTECH ---
pt voided 150mL of light yellow urine into urinal, urine collected and sent to lab.
[2025-02-13 17:46] LABS: Appearance Urine Clear; Glucose Urine UA Negative (Negative); PH 6.0 (5.0-9.0); Specific Gravity - Urine 1.015 (1.005-1.025); UMIC TRIGGER UACC YES
[2025-02-13] MEDS: diazePAM 10 MG/2 ML CARTRIDGE 5 MG IVPUSH (17:46)
[2025-02-13 17:55] LABS: Troponin-I High Sensitivity 12.7 ng/L (<3.5-35.0)
[2025-02-13 18:24] VITALS: BP 150/59; PULSE 58; RESP 18; TEMP 36.6; O2SAT 94
--- OUTSIDE RECORDS SUMMARY | 2025-02-13 19:37 | XMS_ITS | Clinical Summary ---
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
--- OUTSIDE RECORDS SUMMARY | 2025-02-13 19:37 | XMS_ITS | Patient Health Record ---
Author Organization [facility] Address [address] [place] [address] Care Team Providers Care Binder Lockstitch Name Role Phone Ruvalcaba, Helena Primary Care Provider Taty Rooney Unavailable [phone] Allergies No Known Allergies Results Component Value Reference Range Notes HEMOGLOBIN A1C (GLYCOHEMOGLO BIN) Reviewed date:08/29/2024 02:24:14 PM Interpretation: Performing Lab: Notes/Report: HEMOGLOBIN A1C % (HH) 6.5 Reason For Referral No Information Medications Medication SIG (Take, Route, Frequency, Duration) Notes Start Date End Date Status Vitamin D Active PreserVision AREDS A ctive glipiZIDE Not-Taking Extra Depth Orthopedic Shoes (1 Pair) with Customized Heat Molded Multidensity Innersoles (3 Pair) as directed Dx: NIDDM/Polyneuropathy (E11.42), Hammertoe Foot Deformity (M20.41,M20.42), Preulcerative Skin Lesion(s) (L85.1 05/08/2024 Active Aspirin Adult Low Dose Active erythromycin Not-Justin ing metFORMIN HCl 1000 MG 1 tablet with meal s Orally Twice a day Active Loprox 0.77 % 1 application to affected area Externally Twice a day to affected skin and nail; Duration: 30 days 08/22/2017 Active Extra Depth Diabetic Shoes with 3 Pair Custom heat-molded multi-density innersoles for 1 year Dx: A ctive Extra Depth Diabetic Shoes with 3 Pair Custom heat-molded multi-density innersoles for 1 year Dx: 04/28/2017 N ot-Taking Extra Depth Diabetic Shoes with 3 Pair Custom heat-molded multi-density innersoles for 1 year Dx: N ot-Taking amLODIPine Besylate 10 MG Orally Active Lisinopril 5 MG 1 tablet Orally Once a day Active Extra Depth Diabetic Shoes with 3 Pair Custom heat-molded multi-density innersoles for 1 year Dx: 01/23/2018 N ot-Taking Extra Depth Orthopedic Shoes (1 Pair) with Customized Heat Molded Multidensity Innersoles (3 Pair) as directed Dx: NIDDM (E11.9), Hammertoe Foot Deformity (M20.41,M20.42), Preulcerative Skin Lesion(s) (L85.1) 01/02/2025 Active Immunizations Vaccine Route Administration Date Status Comme nts Influenza Unknown 03/09/2016 Administered Influenza Unknown 02/06/2017 Administered Influenza Unknown 01/09/2018 Administered Influenza Unknown 01/29/2021 Administered Influenza Unknown 01/23/2024 Administered Pneumococcal Unknown 03/09/2016 Administered COVID-19 Pfizer [...] Active confirmed Problem Chronic ulcer of foot (697262152) Non-pressure chronic ulcer of other part of left foot with fat layer exposed (L97.522) Active confirmed Problem Localized, primary osteoarthritis of the ankle and/or foot (757849400) Primary osteoarthritis, right ankle and foot (M19.071) Active confirmed Problem Localized, primary osteoarthritis of the ankle and/or foot (004726188) Primary osteoarthritis, left ankle and foot (M19.072) Active confirmed Problem Non-pressure chronic ulcer of other part of left foot limited to breakdown of skin (L97.521) Active confirmed Problem Non-pressure chronic ulcer of other part of right foot limited to breakdown of skin (L97.511) Active confirmed Problem Acquired hammer toe of right foot (0497005764054471 ) Other hammer toe(s) (acquired), right foot (M20.41) Active confirmed Problem Acquired hammer toe of left foot (7113478465911104 ) Other hammer toe(s) (acquired), left foot (M20.42) Active confirmed Problem Polyneuropathy due to type 2 diabetes mellitus (670098692) Type 2 diabetes mellitus with diabetic polyneuropathy (E11.42) Active confirmed Problem Polyneuropathy due to diabetes mellitus type I (772121926) Type 1 diabetes mellitus with diabetic polyneuropathy (E10.42) Active confirmed Vital Signs Blood pressure diastolic 65 mm Hg 01/02/2025 Height 6 ft in 01/02/2025 Blood pressure systolic 116 mm Hg 01/02/2025 Weight 200 lbs 01/02/2025 BMI 27.12 kg/m2 01/02/2025 Procedures Procedure Date Ordered Date Performed Result Body Sit e 95731-CDPSEEF NAIL, 6 OR MORE 05/08/2024 N/A 19452-XAGB SKIN LESIONS, OVER 4 05/08/2024 N/A Encounters Encounter Location Date Provider Diagnosis [address] [address] 05/08/2024 Taty Cardona Other hammer toe(s) (acquired), right foot M20.41 ; Other hammer toe(s) (acquired), left foot M20.42 ; Type 2 diabetes mellitus with diabetic polyneuropathy E11.42 and Tinea unguium B35.[address] [address] 08/29/2024 Taty Cardona Type 2 diabetes mellitus with diabetic polyneuropathy E11.42 and Tinea unguium B35.[address] [address] 01/02/2025 Taty Cardona Other hammer toe(s) (acquired), right foot M20.41 ; Other hammer toe(s) (acquired), left foot M20.42 ; Type 2 diabetes mellitus with diabetic polyneuropathy E11.42 and Tinea unguium B35.1 [facility] [address] [place] [address] 07/08/2024 Taty Cardona Other hammer toe(s) (acquired), [...] E11.42) 08/29/2024 Tinea unguium (ICD-10 - B35.1) 01/02/2025 Other hammer toe(s) (acquired), right foot (ICD-10 - M20.41) Patient Educated with: DIABETIC FOOT CARE INSTRUCTIONS. pdf (DIABETIC FOOT CARE INSTRUCTIONS. pdf) 01/02/2025 Other hammer toe(s) (acquired), left foot (ICD-10 - M20.42) 05/08/2024 Type 2 diabetes mellitus with diabetic polyneuropathy (ICD-10 - E11.42) 05/08/2024 Tinea unguium (ICD-10 - B35.1) 01/02/2025 Type 2 diabetes mellitus with diabetic polyneuropathy (ICD-10 - E11.42) 01/02/2025 Tinea unguium (ICD-10 - B35.1) Plan Of Treatment Pending Test Test Name Order Date Hemoglobin A1c 02/24/2015 X ray : Foot, left 3V 12/14/2022 36030-STIUMHI NAIL, 6 OR MORE 05/08/2024 07413-YNXVZPG NAIL, 6 OR MORE 02/24/2015 60326-DYZDKDF NAIL, 1-5 10/28/2016 46614-PXJIRNZ NAIL, 1-5 04/28/2017 07830-TQCKHXD NAIL, 1-5 08/22/2017 07817-Jcmxdpjw Plate 10/28/2016 31311-Njjjqcmk Plate 03/10/2015 95529-Kfmtuauc Plate 01/09/2018 69650- Debride <25 sq cm 01/23/2018 23717- Debride <25 sq cm 03/10/2015 84963- Debride <25 sq cm 02/24/2015 48503-YMGUNCL SKIN/TISSUE 11/10/2020 78004-MSGF SKIN LESIONS, OVER 4 12/23/19 21 77745-UZVH SKIN LESIONS, OVER 4 06/23/19 22 56936-NSAR SKIN LESIONS, OVER 4 05/08/19 25 30697-PIIO SKIN LESIONS, OVER 4 07/25/19 19 75807-BWQD SKIN LESIONS, OVER 4 02/13/20 19 48818-NZAG SKIN LESIONS, OVER 4 11/11/19 21 39241-AZCW SKIN LESIONS, OVER 4 04/28/19 18 83721-HBVT SKIN LESIONS, 2 TO 4 08/23/19 18 18719-GGSN SKIN LESIONS, 2 TO 4 02/25/20 15 14569-OTAJ SKIN LESIONS, 2 TO 4 10/29/19 17 96457-WMSQ SKIN LESIONS, 2 TO 4 01/10/20 18 39956-OSHN NAIL(S) 08/22/2017 95477-NXEI NAIL(S) 04/28/2017 07793-WDVK NAIL(S) 10/28/2016 P5448-SBGIXLFA DYSTROPHIC NAILS ANY # M5437-NMACFTYM DYSTROPHIC NAILS ANY # A5764-VYTQBLES DYSTROPHIC NAILS ANY # Z6151-YVVSADCF DYSTROPHIC NAILS ANY # T0383-QJGCCKMP DYSTROPHIC NAILS ANY # J0337-LVGGLRQO DYSTROPHIC NAILS ANY # Next Appt Details Provider Name:Taty Elisabeth grossman, 04/30/2025 02:30:00 PM, [address] [facility], [place], [address], Insurance Providers Payer Name Payer Address Payer Phone Subscriber Number Group Number Insured Name Patient Relationship to Insured Coverage Start Date Coverage End Date Medicare National Govt [employer] [address] [place] [address] [phone] [id number] Parent, Ari Self - patient is the insured [employer] [facility] [address] [place] [address] [phone] [id number] Parent, Ari Self - patient is the insured Medical (General) History Medical History History ICD Code Back,Hip,and Knee pain type II diabetes Joint implants/screws Surgical History Surgery Date(Month/Year) right hip replacement 30 years ago Hospitalization History Reason Date(Month/Year) Teenay Anxiety 11/2020 Colonoscopy 05/2017
--- OUTSIDE RECORDS SUMMARY | 2025-02-13 19:37 | XMS_ITS | Patient Health Record ---
Author Organization [facility] Address [address] [place] [address] Care Team Providers Care Site Leader Name Role Phone Katia (RETIRED) Campbell RUTH Primary Care Provide r Unavailable Param Corcoran Jr Unavailable Soni Hernandez Unavailable Unavailable Reason For Referral [...] Problem Status W/U Status Risk Notes Problem Colon cancer screening (847596838) Colon cancer screening (Z12.11) Active confirmed Problem Already on aspirin (394131076) [facility] current use of aspirin (Z79.82) Active confirmed Problem History of adenomatous polyp of colon (706252760) History of adenomatous polyp of colon (Z86.010) Active confirmed Problem Abnormal feces (872151948) Heme + stool (R19.5) Active confirmed Plan Of Treatment Pending Test Test Name Order Date GI BIOPSY 06/09/2017 Future Test Test Name Order Date COLONOSCOPY 03/12/2015 COLONOSCOPY 05/19/2017 Insurance Providers Payer Name Payer Address Payer Phone Subscriber Number Group Number Insured Name Patient Relationship to Insured Coverage Start Date Coverage End Date MEDICARE OF [place] [address] [place] [address] [id number] MOLINA RUEDA Self - patient is the insured [employer] CLAIMS [address] [place] [phone] [id number] MOLINA RUEDA Self - patient is the insured Medical (General) History Medical History History ICD Code NIDDM HTN Stroke-2014--right arm weakness---no res idual Colonoscopy in 06/2015--small tubular adenomas removed--he reports a colonoscopy prior to that as well Denies [place],Lung disease,renal disease Surgical History Surgery Date(Month/Year) Foot surgery for bone spurs 2017 Right hip replacement > 20 yrs ago Left index finger from a saw Hemorrhoid surgery 2013 Dr. Vargas
--- NOTE | 2025-02-13 22:30 | PC.NURSE ---
Pt family requesting images on disc; xray/CT/US. Approx 15min for disc to print. Pt family @ bedside state they want a second opinion on results. RN attempted to explain results and educate pt family on follow up care but family refused teaching. Awaiting disc arrival, pt's IV removed, changed into clothing. Pt resting comfortably in bed at this time.
[2025-02-13 23:00] VITALS: BP 155/55; PULSE 60; RESP 17; TEMP 36.6; O2SAT 94
== END 2025-02-13 23:04 | disposition home or self-care (01) ==
PROVIDERS: Physician Assistant Medical; Emergency Provider Emergency Medicine; PCP Physician Assistant
DX: N20.0 Calculus of kidney (principal); R10.32 Left lower quadrant pain; N28.1 Cyst of kidney, acquired; R07.89 Other chest pain; E11.9 Type 2 diabetes mellitus without complications; Z79.899 Other long term (current) drug therapy; Z87.891 Personal history of nicotine dependence; Z79.84 Long term (current) use of oral hypoglycemic drugs
CPT/HCPCS: 36415; 71101; 74176; 76775; 80048; 80076; 81001; 83690; 83735; 84484; 85025; 93005; 96365; 96375; 99284; 99285; J0131; J3360

== ENCOUNTER → 2025-02-13 15:09 | Outpatient (BNV) | payer MEDICARE, SELFPAY | PROVIDERS: PCP Physician Assistant; Visit Provider Radiology Diagnostic Radiology | DX: R07.89 Other chest pain (principal) | CPT/HCPCS: 71101 ==

== ENCOUNTER → 2025-02-13 15:09 | Outpatient (BNV) | payer MEDICARE, SELFPAY | PROVIDERS: PCP Physician Assistant; Visit Provider Internal Medicine Cardiovascular Disease | DX: R07.9 Chest pain, unspecified (principal) | CPT/HCPCS: 93010 ==

== ENCOUNTER 2025-03-31 11:06 | Outpatient (AMB) | payer MEDICARE, SELFPAY ==
--- NOTE | 2025-03-31 11:11 | A.OFFPC_ITS ---
Vital Signs 03/31/25 11:21 Height 5 ft 9.69 in Weight 207 lb BMI 30.0 BP 140/70 H Blood Pressure Location Lt brachial Position Sitting Respiration 20 Pulse 39 L Pulse Source Pulse Oximeter Temp 97.8 F Temp Source Temporal Artery Scan Pulse Oximetry (%) 94 Oxygen Delivery Method Room Air Intake Visit Reasons: 4 month f/u wants to trf to DR. Marquez [employer] Required: No Accompanied by: Self / Same As Patient Allergies No Known Allergies (No Known Allergies*) Allergy (Verified 03/31/25 11:12) Medication List - Last Reconciled 03/31/25 by Derek Marquez MD amlodipine 10 mg PO DAILY aspirin 81 mg PO DAILY cholecalciferol (vitamin D3) 10 mcg PO DAILY glipizide 2.5 mg PO DAILY losartan 12.5 mg PO DAILY magnesium oxide 250 mg PO DAILY mecobalamin (vitamin B12) 1,000 mcg PO DAILY metformin 1,000 mg PO ONCE mirtazapine 7.5 mg PO BEDTIME pravastatin 40 mg PO DAILY sitagliptin 50 mg PO DAILY temazepam 7.5 mg PO BEDTIME vitamins A,C,E-lyjz-yhnpea 4,296 mcg-226 mg-90 mg (PreserVision AREDS) 1 cap PO BID Tobacco use date assessed: 08/23/24 Last assessed Fall Risk: 03/31/25 Dental Screening Dental Screen Date: 09/30/24 HPI HPI Comments History of Present Illness Details History of Present Illness The patient is an 84 year old male presenting for medication refills. He has a long-standing history of insomnia, for which he has been taking temazepam 15 mg for many years. He reports that he does not get a good night's sleep even with the medication but states it is better when he takes it. He does not take it on weekends or when he is not working. He also notes some issues with forgetting things, which he feels is not severe. The patient has a history of stage 3B chronic kidney disease and sees a [place] counselor [place]. His last creatinine was 1.49 mg/dL last month. For recent pain, he was prescribed methocarbamol, which he requested a refill for. His history is also significant for hypertension, managed with amlodipine 10 mg and losartan 12.5 mg. He has a history of type 2 diabetes mellitus treated with glipizide 2.5 mg, metformin 1000 mg, and Januvia 50 mg daily. His most recent HbA1c in November was 6.5%, an improvement from a prior value of 6.7%. He also has high cholesterol, for which he takes pravastatin 40 mg. Medical History: - Insomnia, chronic - Chronic kidney disease, stage 3B - Hypertension - Type 2 diabetes mellitus - Hypercholesterolemia - Partial amputation of a finger Surgical History: - Partial amputation of a finger via a r adial arm saw injury. Medications: - Temazepam 15 mg for sleep - Amlodipine 10 mg for hypertension - Losartan 12.5 mg for hypertension - Glipizide 2.5 mg for diabetes - Metformin 1000 mg for diabetes - Januvia 50 mg for diabetes - Pravastatin 40 mg for high cholesterol - Methocarbamol for pain Diagnostic Results: - Labs (November): HbA1c 6.5%. - Labs (last month): Creatinine 1.49 mg/ dL. - Labs (recent): LDL 79 mg/dL, Total Cho lesterol 152 mg/dL. 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 - He has been doing this for over 40 yea rs. 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 - Family and Social Support: He has two sons; one works for the [employer] and the other for [employer]. Health Maintenance - Follow-up with [place]rology [place] fo [place] management of chronic kidney disease. - Laboratory monitoring: Plan to check b lood work, including HbA1c, one week prior to the next scheduled visit. - Follow-up: Schedule a return visit in three months. Patient was informed and verbally consented to the use of an ambient scribe for clinic note documentation during this visit. Vital signs reviewed. Comprehensive history, review of systems, and physical exam completed. Medications, allergies, and problem list reviewed and updated. Counseling provided on nutrition, regular exercise, sleep hygiene, and moderation of alcohol use. Discussed age-appropriate screenings (mammogram, colonoscopy, Pap, bone density) and immunizations (flu, COVID, shingles, Tdap). Screened for depression, fall risk, and home safety; no current concerns. Discussed stress management, dental and vision care, and importance of ongoing preventive follow-up. Routine labs ordered for metabolic and lipid screening. Patient educated on healthy lifestyle and agrees with the plan. [facility] Medical History (Updated 03/31/25 @ 11:47 by Derek Marquez MD) Memory impairment Insomnia Diabetic polyneuropathy Traumatic closed nondisplaced fracture of orbit Nasal bone fracture HTN (hypertension) CKD stage 3 due to type 2 diabetes mellitus Macular degeneration Diabetes Surgical History History of colonoscopy (~06/09/17) H/O Achilles tendon repair (~2015) History of total right hip replacement (~07/29/95) Family History Mother Diabetes 1.5, managed as type 2 Father No problems noted. Social History Housing: House Patient Tobacco Use Status: Former Tobacco user e-Cigarette/Vaping Use: Former Use service: Yes Current occupational status: retired Cognitive needs: No Hearing needs: Yes (both hearing aids) Vision needs: Yes (rx glasses) Questionnaire Thrive Questionnaire Date Thrive assessed: 09/30/24 NUNU-7 AMB Questionnaire NUNU-7 Date NUNU - 7 assessed: 09/30/24 Source: Developed by Drs. Ari Mcdonnell, Danii Garnett, Brad Valencia and colleagues, with an educational robel from [employer] Review of Systems Narrative Review of Systems - Constitutional: Reports difficulty achieving a good night's sleep. - Musculoskeletal: Reports pain. - Neurological: Reports memory issues, stating he forgets things. All systems reviewed & are unremarkable except as reviewed in HPI and above Physical exam (Primary Care) Vital Signs: Last Vital Signs Temp 97.8 F 03/31/25 11:21 Pulse 39 L 03/31/25 11:21 Resp 20 03/31/25 11:21 BP 140/70 H 03/31/25 11:21 Pulse Ox 94 03/31/25 11:21 Oxygen Delivery Method Room Air 03/31/25 11:21 Care Plan Goal for BP management: Wihtin goal Next steps: Continue to monitor BMI result Body Mass Index 30.0 Tobacco/Smoking Status: Tobacco use Status Tobacco use date assessed 08/23/24 03/31/25 11:13 Patient Tobacco Use Status Former Tobacco user 03/31/25 11:13 e-Cigarette/Vaping Use Former Use 03/31/25 11:13 Thrive Assessment: Date of Thrive Assessment Date Thrive assessed 09/30/24 03/31/25 11:13 Narrative Physical Exam General: +Alert and oriented, Well nourished, No acute distress. Eye: Pupils are equal, round and reactive to light, Intact accommodation, Extraocular movements are intact, Normal conjunctiva, Vision unchanged. HENT: Normocephalic, Atraumatic, Tympanic membranes are clear, Normal hearing, Oral mucosa is moist, No pharyngeal erythema, Ear canals patent. Respiratory: Lungs CTA bilaterally, No wheeze, Respirations are non-labored. Cardiovascular: Regular rate, Regular rhythm, S1 auscultated, S2 auscultated, No murmur, Good pulses equal in all extremities, Normal peripheral perfusion, No edema. Gastrointestinal: Soft, Non-tender, Non-distended, Normal bowel sounds, No organomegaly. Musculoskeletal: Normal range of motion, Normal strength, No tenderness, No swelling, No deformity, Normal gait. Integumentary: Warm, Dry, [place], Intact. Neurologic: Alert, Oriented, Normal sensory, Normal motor function, No focal defects, Cranial Nerves II-XII are grossly intact, Normal deep tendon reflexes. Psychiatric: Cooperative, Appropriate mood & affect, Normal judgment. This visit meets the criteria for a Level 5 established patient encounter due to the high complexity of medical decision-making involved. The patient presents with multiple chronic conditions requiring active management, including stage 3B chronic kidney disease, type 2 diabetes mellitus, hypertension, and hypercholesterolemia. A high-risk medication?long-term temazepam use in an elderly patient?necessitated comprehensive risk?benefit analysis, creation of a detailed multi-month tapering regimen to prevent withdrawal, and initiation of an alternative therapeutic agent. Additional decision-making included identifying and discontinuing methocarbamol due to renal safety concerns, managing polypharmacy among several interacting chronic disease medications, and providing structured follow-up with coordinated care involving nephrology. These combined elements reflect high complexity in assessment, risk stratification, and management planning consistent with [id number]. Coding Level of Care Code Est Pt Level 5 (04142) Complex visit Add On G2211 Diagnoses Insomnia, unspecified type G47.00 Insomnia type: unspecified CKD stage 3 due to type 2 diabetes mellitus E11.22; N18.30 Primary hypertension I10 Hypertension type: primary hypertension Other hyperlipidemia E78.49 Hyperlipidemia type: other hyperlipidemia Type 2 diabetes mellitus without complication, without long-term current use of insulin E11.9 Diabetes mellitus type: type 2 Diabetes mellitus terminal makeup operator insulin use: without care home use Diabetes mellitus complication status: without complication Memory impairment R41.3 Assessment & Plan Assessment & Plan (1) Insomnia: Comment: - The patient has been on temazepam for many years, which is not recommended for individuals over 65 due to increased risks of falls, confusion, and dementia. The plan is to taper him off temazepam over three months to prevent withdrawal from this addictive medication. A new prescription for temazepam 7.5 mg will be sent. The taper schedule is as follows: - Month 1: Alternate between 15 mg (2 tablets) and 7.5 mg (1 tablet) nightly for 28 days. - Month 2: Take 7.5 mg (1 tablet) nightly for 28 days. - Month 3: Take 7.5 mg (1 tablet) every other night for 28 days, then stop. He will start mirtazapine nightly for sleep, which is a safer alternative. Code(s): G47.00 - Insomnia, unspecified Category: Medical Qualifiers: Insomnia type: unspecified Qualified Code(s): G47.00 - Insomnia, unspecified (2) CKD stage 3 due to type 2 diabetes mellitus: Comment: - The patient requested a refill for methocarbamol for pain. - This medication is contraindicated given his stage 3B CKD as it can worsen kidney function. - Advised to discontinue methocarbamol and use Tylenol 1000 mg every 8 hours as a safer alternative for pain management. - He has an upcoming appointment with his herb counselor [place] the [place]. Code(s): E11.22 - Type 2 diabetes mellitus with diabetic chronic kidney disease; N18.30 - Chronic kidney disease, stage 3 unspecified Category: Medical (3) HTN (hypertension): Comment: - Blood pressure is borderline at 140/70 mmHg. - He will continue his current regimen of amlodipine and losartan. - No changes to his medication are needed at this time. Code(s): I10 - Essential (primary) hypertension Category: Medical Qualifiers: Hypertension type: primary hypertension Qualified Code(s): I10 - E ssential (primary) hypertension (4) Hyperlipemia: Comment: - His cholesterol is well-managed on pravastatin 40 mg, with a recent LDL of 79 mg/dL. - He will continue his current medication. Code(s): E78.5 - Hyperlipidemia, unspecified Category: Medical Qualifiers: Hyperlipidemia type: other hyperlipidemia Qualified Code(s): E78.49 - Other hyperlipidemia (5) Diabetes: Comment: - His diabetes is well-controlled, with a recent HbA1c of 6.5%, which is below the target of 7.5% for his age. - He will continue his current medications (glipizide, metformin, Januvia). - Blood work, including an A1c, will be ordered for the week before his next three-month follow-up appointmen Code(s): E11.9 - Type 2 diabetes mellitus without complications Category: Medical Qualifiers: Diabetes mellitus type: type 2 Diabetes mellitus care home insulin use: without care home use Diabetes mellitus complication status: without complication Qualified Code(s): E11.9 - Type 2 diabetes mellitus without complications (6) Memory impairment: Comment: - The patient reports some memory issues. - This could be a side effect of his long-term temazepam use. - The plan to taper off temazepam may help improve his memory and continue to monitor Code(s): R41.3 - Other amnesia Category: Medical Plan: Health Maintenance: - Follow-up with nephrology [place] the [place] for management of chronic kidney disease. - Laboratory monitoring: Plan to check blood work, including HbA1c, one week prior to the next scheduled visit. - Follow-up: Schedule a return visit in three months. Patient was informed and verbally consented to the use of an ambient scribe for clinic note documentation during this visit. Plan I had an extensive discussion with the patient regarding his use of temazepam for sleep. I explained that this medication is unsafe for anyone over the age of 65 as it increases the risk of falls, confusion, and dementia. I also informed him that it is an addictive medication and his body has become dependent on it, which is why we must taper off it slowly over three months to avoid withdrawal. The taper schedule and the need to call for monthly refills were reviewed in detail, and I provided him with written instructions. I also discussed his use of methocarbamol for pain, explaining that it is unsafe with his stage 3B kidney disease and could cause more harm. I recommended Tylenol as a safer alternative. We briefly reviewed his well-controlled diabetes and cholesterol. The plan for a three-month follow-up with blood work to be done one week prior was discussed, and the patient agreed. I confirmed that I am now his primary care provider. Orders: Orders Hemoglobin A1c 3 Months E11.9 - Type 2 diabetes mellitus without complications Medications: New temazepam Take 2 capsules (15 mg) by mouth at bedtime every other night, and 1 capsule (7.5 mg) at bedtime on alternating nights 7.5 mg PO BEDTIME 42 caps 0RF mirtazapine 7.5 mg PO BEDTIME 90 tabs 0RF Discontinued methocarbamol Discontinued Reason: Doctor's Order 750 mg PO Q8H PRN 15 tabs 0RF pain, moderate temazepam Discontinued Reason: Doctor's Order 15 mg PO BEDTIME PRN 60 caps 1RF sleep G47.00 - Insomnia, unspecified Patient Instructions: - For pain, stop taking Methocarbamol. - You can take Tylenol 1000 mg every 8 hours as needed. - We are going to slowly stop the Temazepam you take for sleep over the next three months. A new prescription for 7.5 mg tablets will be sent to your pharmacy. - For the next 28 days (about 4 weeks), take two 7.5 mg tablets one night, and then one 7.5 mg tablet the next night. Continue alternating between two tablets and one tablet each night. - After 28 days, you will call the office for your next prescription, and you will start taking one 7.5 mg tablet every night. - After another 28 days, you will call again. Your next prescription will be for one 7.5 mg tablet every other night. - After that, you will stop the Temazepam completely. - A new medication for sleep, Mirtazapine, has been prescribed. Take this every night. - Continue all your other medications for blood pressure, diabetes, and cholesterol as prescribed. - Please go to the lab to have your blood work done one week before your next appointment. - Your next follow-up appointment will be in three months.
[2025-03-31 11:21] VITALS: BP 140/70; PULSE 39; RESP 20; TEMP 36.6; O2SAT 94
== END 2025-03-31 11:44 | disposition home or self-care (01) ==
LOC: HO.HMCHD 11:07
PROVIDERS: PCP Student in an Organized Health Care Education/Training Program; Visit Provider Student in an Organized Health Care Education/Training Program
DX: I12.9 Hypertensive chronic kidney disease with stage 1 through stage 4 chronic kidney disease, or unspecified chronic kidney disease (principal); E11.22 Type 2 diabetes mellitus with diabetic chronic kidney disease; N18.30 Chronic kidney disease, stage 3 unspecified; G47.00 Insomnia, unspecified; E78.49 Other hyperlipidemia; R41.3 Other amnesia

== ENCOUNTER → 2025-03-31 11:06 | Outpatient (BNVA) | payer MEDICARE, SELFPAY | PROVIDERS: PCP Student in an Organized Health Care Education/Training Program; Visit Provider Student in an Organized Health Care Education/Training Program | DX: G47.00 Insomnia, unspecified (principal); E11.22 Type 2 diabetes mellitus with diabetic chronic kidney disease; N18.32 Chronic kidney disease, stage 3b; I10 Essential (primary) hypertension; E78.49 Other hyperlipidemia; R41.3 Other amnesia | CPT/HCPCS: 99212 ==